=== PATIENT | female | born 1940 | race Caucasian/White ===

== ENCOUNTER 2018-02-20 12:10 | Emergency (ER) | payer MEDICARE, BC, SELFPAY ==
--- NOTE | 2018-02-20 12:10 | DT_ITS ---
This patient was seen during an EMR downtime February 14, 2018 - February 21, 2018. This patient may have a combination of paper and electronic documentation or all paper documentation. All documentation is viewable within the e-chart portion of [facility] for each patient visit.
--- NOTE | 2018-02-20 13:50 | CT_ITS ---
STUDY: CT ABDOMEN AND PELVIS WITH CONTRAST REASON FOR EXAM: Female, 77 years old. Low abdominal pain RADIATION DOSAGE (If Supplied By Facility): CTDIvol = ( 12.86 ) mGy, DLP = ( 700.04 ) mGycm TECHNIQUE: Transaxial images were obtained from the lower chest to the upper thighs with oral contrast. 100 ml of Isovue 300 contrast was administered. Sagittal and coronal images were reconstructed. Individualized dose optimization techniques were used for this CT. COMPARISON: None. FINDINGS: There is minimal dependent atelectasis in both lung bases. There is no pleural effusion. The heart is normal in size. The liver is unremarkable. The gallbladder and biliary system are unremarkable. The spleen is unremarkable. The pancreas is unremarkable. The adrenal glands are unremarkable. The right kidney is unremarkable. There is mild dilatation of the collecting system in the right kidney. There is atrophy of the upper and mid poles of the left kidney. There is no dilatation of the collecting system in the left kidney. The stomach is unremarkable. The small bowel is unremarkable. There are diverticula in the distal colon without adjacent stranding. There is non-visualization of the appendix. There are moderate vascular calcifications. The infrarenal aorta measures 3.5 cm in diameter. The inferior vena cava is unremarkable. The retroperitoneum is unremarkable. There is no free fluid in the abdomen. The wall of the bladder is thickened, and there is a small air focus in the anterior bladder wall. There is absence of the uterus likely from prior hysterectomy. There are no abnormal masses in the adnexal regions. There are small phleboliths scattered in the lower pelvis. The soft tissues of the abdominal wall are unremarkable. There are moderate degenerative changes in the visualized spine. There are marked degenerative disc changes at L4-5 and L5-S1. CT/Abdomen/Pelvis WITH Contrast IMPRESSION: The bladder wall is thickened and there is a small air focus along the anterior bladder wall, suggesting cystitis. There is mild hydronephrosis on the right side. There is diverticulosis of the distal colon. There are no acute bowel abnormalities. There is no ascites, free air or significant lymphadenopathy. There are moderate scattered vascular calcifications. The infrarenal aorta measures 3.5 cm in diameter. Electronically Signed: Tri Harris MD at 14:26 EDT Tel Direct: [phone], Service support ,
[2018-02-22 08:55] LABS: Glucose 94 mg/dL (74-106)
[2018-02-22 08:56] LABS: ALB/GLOB Ratio 0.9 RATIO (0.9-2.4); AST(SGOT) 27 U/L (15-37); Alanine Aminotransfer ALT/SGPT 18 U/L (13-56); Albumin, Serum 3.3 g/dL (3.2-5.0); Alkaline Phosphatase 115 U/L (45-117); BUN 18 mg/dL (7-18); BUN/Creat Ratio 20.2 RATIO (10-20); Calcium,Total 9.3 mg/dL (8.5-10.1); Creatinine, Serum 0.89 mg/dL (0.55-1.02); EST Glomerular Filtration Rate 66 mL/min (>60); Est Glom Filt Rate - Afr Amer 80 mL/min (>60); Globulin 3.6 g/dL (2.2-4.2); Lipase 172 U/L (73-393); Protein, Total 6.9 g/dL (6.4-8.2)
[2018-02-22 08:57] LABS: Anion Gap 4 (5-15); Chloride 110 mmol/L (98-107); Potassium 4.3 mmol/L (3.5-5.1); Sodium Level 144 mmol/L (136-145)
[2018-02-22 11:33] LABS: Absolute Lymphocyte Count 1.78 X10^3/ul (0.83-4.51); Absolute Neutrophil Count 4.7 X10^3/uL (2.0-7.7); Basophil# 0.03 X10^3/uL; Basophil% 0.4 % (0-1); Eosinophil# 0.28 X10^3/uL; Eosinophils% 3.9 % (0-5); Hematocrit 41.5 % (37-47); Hemoglobin 13.5 g/dl (12.0-15.0); Lymphocyte # 1.78 X10^3/ul (4.0); Lymphocyte % 24.5 % (19-41); Mean Corp Hgb Conc 32.5 g/gl (32-36); Mean Corpuscular Volume 92.2 fL (81-99); Monocyte% 6.9 % (0-10); Neutrophil # 4.67 X10^3/uL (2.7-7.7); Neutrophil % 64.2 % (47-70); POSITIVE COUNT NO; POSITIVE DIFFERENTIAL NO; POSITIVE MORPHOLOGY NO; Platelet Count 289 K/mm3 (150-450); RBC Distribution Width CV 12.5 % (11.6-14.6); RBC Distribution Width SD 41.5 fl (35.1-43.9); White Blood Count 7.3 K/mm3 (4.4-11.0)
[2018-02-22 12:12] LABS: Mucous, Urine 0 SEEN /hpf (<or=2+); Red Blood Cells-Urine 0 SEEN /hpf (0-5)
[2018-02-22 13:16] LABS: Color, Urine Yellow (Yellow); Glucose, Dipstick NEGATIVE (Normal); Ketone-Dipstick Negative (Negative); Protein-Dipstick Negative (Negative); Specific Gravity, Urine 1.005 (1.002-1.030); Urine Bilirubin Dipstick Negative (Negative); Urine Clarity Clear (Clear)
[2018-02-22 13:17] LABS: Bacteria RARE /hpf (None Seen); Leukocyte Esterase-Dipstick 500 /ul (Negative); Nitrite-Dipstick Negative (Negative); Occult Blood-Urine 10 /ul (Negative); Squamous Epithelial Cells - UA 0-5 SEEN /hpf (5-10); Urine Urobilinogen Normal (Normal); White Blood Cells 5-10 SEEN /hpf (0-5)
== END 2018-02-20 16:55 | disposition home or self-care (01) ==
LOC: ED 02-21 07:18
PROVIDERS: Emergency Provider Emergency Medicine; Family Provider Family Medicine; PCP Family Medicine
DX: R10.84 Generalized abdominal pain (principal); N39.0 Urinary tract infection, site not specified; R19.7 Diarrhea, unspecified; I25.2 Old myocardial infarction; N26.1 Atrophy of kidney (terminal); K57.30 Diverticulosis of large intestine without perforation or abscess without bleeding; I50.9 Heart failure, unspecified; J44.9 Chronic obstructive pulmonary disease, unspecified; Z86.79 Personal history of other diseases of the circulatory system; Z87.19 Personal history of other diseases of the digestive system; Z95.5 Presence of coronary angioplasty implant and graft; Z90.710 Acquired absence of both cervix and uterus; F17.200 Nicotine dependence, unspecified, uncomplicated
CPT/HCPCS: 36415; 74177; 80053; 81001; 83690; 85025; 87077; 87086; 87088; 87186; 96361; 96365; 96375; 99283; Q9967; A4216; J2405

== ENCOUNTER 2018-07-12 15:00 | Inpatient (IN) | payer OTHER, MEDICARE, SELFPAY ==
[2018-07-12 15:16] VITALS: BP 119/75; PULSE 88; RESP 18; TEMP 36.8; O2SAT 95; BMI 26.7
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
--- NOTE | 2018-07-12 17:45 | NURSING ---
Patient verbalized understanding to being a fall risk and asking for assistance. Call acevedo in place.
[2018-07-12 19:55] VITALS: BP 124/56; PULSE 91; RESP 19; TEMP 36.7; O2SAT 95
[2018-07-12] MEDS: BACITRACIN 15 GM Tube 1 APPLIC TOPICAL (21:13)
[2018-07-12] MEDS: Senna/Docusate Sodium 1 Tablet 2 TABLET PO (21:14)
[2018-07-12] MEDS: oxyCODONE 5 MG Tablet PO (21:15)
[2018-07-12] MEDS: clonazePAM 0.5 MG Tablet 1 MG PO (21:15)
[2018-07-12] MEDS: Pramipexole Di-HCl 0.125 MG Tablet PO (21:17)
[2018-07-12 22:15] VITALS: PULSE 117; RESP 18
[2018-07-12] MEDS: Albuterol 2.5 MG/3 ML VIAL.NEB. INHALATION (22:15)
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
[2018-07-13] MEDS: oxyCODONE 5 MG Tablet PO ×4 (01:36→19:37)
[2018-07-13] MEDS: Enoxaparin 40 MG/0.4 ML Syringe SC (05:17)
[2018-07-13] MEDS: Levothyroxine 50 MCG Tablet PO (05:17)
[2018-07-13] MEDS: clonazePAM 0.5 MG Tablet 1 MG PO (05:17)
[2018-07-13] MEDS: Baclofen 10 MG Tablet PO (05:17)
[2018-07-13] MEDS: BACITRACIN 15 GM Tube 1 APPLIC TOPICAL ×2 (05:18→22:43)
[2018-07-13 06:58] LABS: Hematocrit 30.7 % (37-47); Hemoglobin 9.7 g/dl (12.0-15.0); Mean Corp Hgb Conc 31.6 g/gl (32-36); Mean Corpuscular Hgb 30.5 pg (27.0-32.0); Mean Corpuscular Volume 96.5 fL (81-99); Platelet Count 200 K/mm3 (150-450); RBC Distribution Width CV 12.5 % (11.6-14.6); RBC Distribution Width SD 42.7 fl (35.1-43.9); Red Blood Count 3.18 M/mm3 (4.2-5.4); White Blood Count 7.4 K/mm3 (4.4-11.0)
[2018-07-13 07:12] LABS: Scan Indicated on CBC? Y/N NO
[2018-07-13 07:22] LABS: BUN 14 mg/dL (7-18); Creatinine, Serum 0.66 mg/dL (0.55-1.02); Estimated Creatinine Clearance 37.85 ml/min; Glucose 96 mg/dL (74-106)
[2018-07-13 07:23] LABS: ALB/GLOB Ratio 0.7 RATIO (0.9-2.4); AST(SGOT) 28 U/L (15-37); Alanine Aminotransfer ALT/SGPT 36 U/L (13-56); Albumin, Serum 2.5 g/dL (3.2-5.0); Alkaline Phosphatase 87 U/L (45-117); Anion Gap 6 (5-15); BUN/Creat Ratio 21.1 RATIO (10-20); Calcium,Total 8.4 mg/dL (8.5-10.1); Chloride 104 mmol/L (98-107); EST Glomerular Filtration Rate 92 mL/min (>60); Est Glom Filt Rate - Afr Amer 111 mL/min (>60); Globulin 3.4 g/dL (2.2-4.2); Phosphorus 3.2 mg/dL (2.5-4.9); Potassium 4.1 mmol/L (3.5-5.1); Protein, Total 5.9 g/dL (6.4-8.2); Sodium Level 141 mmol/L (136-145)
[2018-07-13 07:27] VITALS: BP 128/62; PULSE 94; RESP 19; TEMP 36.8; O2SAT 94
[2018-07-13] MEDS: Aspirin 81 MG TAB.CHEW PO (08:04)
[2018-07-13] MEDS: Clopidogrel Bisulfate 75 MG Tablet PO (08:04)
[2018-07-13] MEDS: Escitalopram Oxalate 10 MG Tablet 5 MG PO (08:05)
[2018-07-13] MEDS: Senna/Docusate Sodium 1 Tablet 2 TABLET PO (08:05)
[2018-07-13] MEDS: Lisinopril 5 MG Tablet PO (08:05)
[2018-07-13] MEDS: predniSONE 20 MG Tablet PO (08:05)
[2018-07-13] MEDS: Pantoprazole Sodium 40 MG Tablet PO (08:05)
[2018-07-13] MEDS: Pravastatin 40 MG Tablet PO (08:06)
[2018-07-13 08:07] VITALS: PULSE 79
[2018-07-13] MEDS: Metoprolol Tartrate 25 MG Tablet PO (08:07)
--- NOTE | 2018-07-13 10:11 | VDLE_ITS ---
Reason For Study: Pain RIGHT LEFT GSV is normal. GSV is normal. CFV is compressible, spontaneous, phasic, CFV is compressible, spontaneous, phasic, competent and demonstrates normal competent, and demonstrates normal augmentation. augmentation. FV is compressible, spontaneous, phasic, FV is compressible, spontaneous, phasic, competent and demonstrates normal competent and demonstrates normal augmentation. augmentation. POP V is compressible, spontaneous, phasic, POP V is compressible, spontaneous, phasic, competent and demonstrates normal competent and demonstrates normal augmentation. augmentation. T/P Trunk is compressible. T/P Trunk is compressible. PTV is compressible. PTV is compressible. RT PerV is compressible. Lt GastrocV, Lt SoleusV, and Lt PeroV are Procedure dilated and non compressible consistent with Exam performed portable in patient room. acute DVT. A preliminary report was called and/or faxed to [facility]. <> Interpretation Summary Acute deep vein thrombosis is noted in the left peroneal vein. Acute deep vein thrombosis is noted in the left gastrocnemius vein. Acute deep vein thrombosis is noted in the left soleus vein. The remainder of the left lower extremity deep venous system is patent and compressible. Deep veins of the right lower extremity are patent and compressible segmentally. There is no evidence of right lower extremity deep vein thrombosis. Valvular competence appears intact within the proximal deep venous systems bilaterally. The greater saphenous veins appear bilaterally patent and compressible segmentally. Ordering Physician: Amando Tobar Referring Physician: Boy Miller Performed By: Dana Thomas RDCS, RVT
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
--- NOTE | 2018-07-13 10:22 | PCM.RU.PYE ---
Admission Information Status Changes from Prescreening?: No changes Identified Actual Problem List:: Pain, ALteration in Cmfrt, Alteration in Sleep, Mobility Impaired, Self Care Deficit, BP, Hypertension, Alteration/ Air Exchange, Ineffect.D/C Plan r/t Psy Potential Problem List:: DVT, Bleeding, Infection, UTI, Aspiration, Falls, Skin Integrity, Depression Risk of Complications DVT: LMWH, OSWALDO Hose, Sequential Compression Device Bleeding: Monitor Lab Values, Nursing to Teach Precautions for anti-coagulation therapy., Wound, if applicable, to be assessed every shift., Stroke patients assessed for lethargy or change in status. Infection: Clinical Staff to Monitor for S/S of infection:, S/S of infection include fever, redness, warmth, etc. Urinary Tract Infection: Monitor for frequency, burning, discomfort, or incontinence., Nursing will obtain urine sample for urinalysis and C&S when ordered. Aspiration: Clinical staff will monitor for coughing, drooling, congestion., Speech will evaluate swallowing and dsyphasia., Nursing will monitor patient swallowing during meals. Falls: Patient will be evaluated for Fall Precautions, Patient will be placed on Fall Precautions as indicated per protocol. Skin Breakdown: Nursing will assess skin daily using assessment tool., Nursing will place on Skin Breakdown Precautions as indicated. Pain: Clinical staff will assess patient's pain level per protocol., Medications will be given, if needed, and the pain level reassessed., Other methods: Massage, distraction, decrease stimulus, etc. used PRN. Plan of Care Patient requires physician specializing in physical medicine and rehab oversight to provide close medical supervision of rehab issues including: Pain Management, Sleep Problems, Bowel and Bladder, Medical and co-morbidity Management, DVT prophylaxis, Rehabilitation Leadership, Coordination of treatment team Patient needs Physical Therapy: For a minimum of 1 hour, At least 5 out of 7 days Patient needs Physical Therapy to improve:: Mobility, Mobility, Mobility, Strengthening, Transfers, Stretching, ROM, Endurance, Stairs, Gait, Balance Patient needs Occupational Therapy: For a minimum of 1 hour, At least 5 out of 7 days Patient needs Occupational Therapy to improve ADL's incl.: Eating, Grooming, Bathing, Dressing, Toileting, Toilet transfers, Community Reintegration, Higher functioning activities, Household tasks, Adaptive Equipment, Splinting, Other activities as determined Patient requires 24/ Rehabilitation Nursing for: Pain Issues, Identifying and preventing risk factors, Monitoring and reporting current medical conditions, Assisting with ambulation, transfer, and all ADL's, Teaching patients about disease process and medications, Family teaching, Providing safe environment, Bowel and Bladder Issues, Skin integrity, Medication Management Patient needs Direct Chill Caster/ Case Management for: Discharge Planning, Arranging Home Equipment or Services, Family Interventions Patient needs Dietary and Nutrition Services for: Adequate Nutrition, Nutritional Supplements, Nutritional Education Goals Patient will remain: free from falls, or injury at time of discharge. Patient will perform bed mobility at: MOD I level of assist. Patient will complete transfers from bed to chair at: MOD I level of assist. Patient will ambulate: 100 feet, with MOD I assist, with LRD Patient will complete upper body dressing at: MOD I level of assist. Patient will complete lower body dressing at: MOD I level of assist. Patient will complete toileting at: MOD I level of assist. Patient will perform bathing at: MOD I level of assist. Patient will complete grooming at: MOD I level of assist. Patient will complete home management skills at: MOD I level of assist. Patient will achieve: 12 stairs, at MOD I assist Patient will have pain level of: of 3 or less Patient's skin will: remain intact, free from infection. Patient will receive: adequate nutrition. Discharge Planning Pt Prognosis for Sig. Practical Improv. w/in Reasonable Time: Good Anticipated D/C Destination: Home with Outpt Therapy Was Preadmission Assessment Accurate?: Yes
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
[2018-07-13] MEDS: Rivaroxaban 15 MG Tablet PO (17:12)
[2018-07-13 20:15] VITALS: O2SAT 93
[2018-07-13 20:35] VITALS: BP 140/73; PULSE 93; RESP 20; TEMP 37.1; O2SAT 92
[2018-07-13] MEDS: Nystatin Powder 15gm Bottle 1 APPLIC TOPICAL (22:42)
[2018-07-13] MEDS: Pramipexole Di-HCl 0.125 MG Tablet PO (22:43)
[2018-07-14] MEDS: oxyCODONE 5 MG Tablet PO ×4 (00:42→17:09)
[2018-07-14] MEDS: Nystatin Powder 15gm Bottle 1 APPLIC TOPICAL ×2 (05:48→21:28)
[2018-07-14] MEDS: BACITRACIN 15 GM Tube 1 APPLIC TOPICAL ×2 (05:48→21:27)
[2018-07-14] MEDS: Levothyroxine 50 MCG Tablet PO (06:40)
[2018-07-14] MEDS: Baclofen 10 MG Tablet PO ×2 (06:40→18:12)
[2018-07-14 07:20] VITALS: BP 142/73; PULSE 95; RESP 20; TEMP 36.9; O2SAT 92
[2018-07-14 08:13] VITALS: PULSE 95
[2018-07-14] MEDS: Aspirin 81 MG TAB.CHEW PO (08:13)
[2018-07-14] MEDS: predniSONE 20 MG Tablet PO (08:13)
[2018-07-14] MEDS: Lisinopril 5 MG Tablet PO (08:13)
[2018-07-14] MEDS: Escitalopram Oxalate 10 MG Tablet 5 MG PO (08:13)
[2018-07-14] MEDS: Pravastatin 40 MG Tablet PO (08:13)
[2018-07-14] MEDS: Pantoprazole Sodium 40 MG Tablet PO (08:13)
[2018-07-14] MEDS: Metoprolol Tartrate 25 MG Tablet PO (08:13)
[2018-07-14] MEDS: Rivaroxaban 15 MG Tablet PO ×2 (08:13→17:09)
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
--- NOTE | 2018-07-14 11:33 | NURSING ---
REQUEST FAXED TO [facility] FOR CT OF CHEST DISK TO BE SENT.
--- NOTE | 2018-07-14 15:30 | NURSING ---
REQUEST FAXED TO [facility] FOR CT CHEST DISC.
[2018-07-14 18:40] VITALS: PULSE 84; RESP 18
[2018-07-14] MEDS: Albuterol 2.5 MG/3 ML VIAL.NEB. INHALATION (18:40)
[2018-07-14 21:23] VITALS: BP 140/68; PULSE 86; RESP 18; TEMP 37; O2SAT 92
[2018-07-14] MEDS: Pramipexole Di-HCl 0.125 MG Tablet PO (21:27)
[2018-07-14] MEDS: Senna/Docusate Sodium 1 Tablet 2 TABLET PO (21:29)
[2018-07-14] MEDS: clonazePAM 0.5 MG Tablet 1 MG PO (21:35)
[2018-07-15] MEDS: oxyCODONE 5 MG Tablet PO ×4 (00:13→18:35)
[2018-07-15] MEDS: Levothyroxine 50 MCG Tablet PO (06:07)
[2018-07-15] MEDS: BACITRACIN 15 GM Tube 1 APPLIC TOPICAL ×2 (06:07→20:20)
[2018-07-15] MEDS: Nystatin Powder 15gm Bottle 1 APPLIC TOPICAL ×2 (06:08→20:21)
[2018-07-15 07:48] VITALS: BP 142/89; PULSE 98; RESP 18; TEMP 36.9; O2SAT 93
[2018-07-15 10:02] VITALS: BP 142/89; PULSE 98
[2018-07-15] MEDS: Senna/Docusate Sodium 1 Tablet 2 TABLET PO (10:02)
[2018-07-15] MEDS: Metoprolol Tartrate 25 MG Tablet PO (10:02)
[2018-07-15] MEDS: Pantoprazole Sodium 40 MG Tablet PO (10:02)
[2018-07-15] MEDS: Pravastatin 40 MG Tablet PO (10:02)
[2018-07-15] MEDS: Lisinopril 5 MG Tablet PO (10:02)
[2018-07-15] MEDS: Escitalopram Oxalate 10 MG Tablet 5 MG PO (10:03)
[2018-07-15] MEDS: Ondansetron ODT 4 MG Tablet PO (10:03)
[2018-07-15] MEDS: Rivaroxaban 15 MG Tablet PO ×2 (10:03→18:34)
[2018-07-15] MEDS: Aspirin 81 MG TAB.CHEW PO (10:03)
[2018-07-15] MEDS: predniSONE 20 MG Tablet PO (10:03)
--- NOTE | 2018-07-15 11:23 | PCM.PN.NEU ---
Patient Problems: Active and Suspected Problems Pulmonary emboli (Acute) Subjective: Patient seen and examined. Having some nausea and up set stomach this morning. - Physical Exam General: Alert, Oriented x3, Cooperative HEENT: Atraumatic, PERRLA, EOMI, Normocephalic Neck: Supple, No JVD, Negative Carotid Bruits Lungs: Clear to auscultation, Normal air movement Cardiovascular: Regular rate, No murmurs Abdomen: Bowel Sounds Present, Soft, Non Tender Extremities: No edema, Capillary Refill Less than 3 Seconds Skin: No rashes, No breakdown Musculoskeletal: No Tenderness to Palpation of Joints or Extremities Neurological: Cranial nerves II-XII grossly intact Psych/Mental Status: Normal Affect, Appropriate, Alert and oriented to time, place, person, mood and affect Vital Signs Temp Pulse Resp BP Pulse Ox 98.4 F 98 18 142/89 H 93 07/15/18 07:48 07/15/18 10:02 07/15/18 07:48 07/15/18 10:02 07/15/18 07:48 Oxygen Flow Rate (L/min) 2 Oxygen Delivery Method Room Air Weight: 66.5 kg Body Mass Index (BMI) 26.7 Intake and Output for Last 24 Hours 07/13/18 07/14/18 07/15/18 23:59 23:59 23:59 Intake Total 740 / 740 120 / 120 240 / 240 Output Total 650 / 650 Balance 90 / 90 120 / 120 240 / 240 Active Medications Albuterol Sulfate (Ventolin Aerosols) 2.5 mg INHALATION BID.RT [facility] Last Admin: 07/15/18 08:00 Dose: Not Given Aspirin (Aspirin, Baby) 81 mg PO DAILY@0800 [facility] Last Admin: 07/15/18 10:03 Dose: 81 mg Bacitracin (Bacitracin Ointment) 1 applic TOPICAL BID@0600,2200 [facility]; Protocol Last Admin: 07/15/18 06:07 Dose: 1 applicatio Baclofen (Lioresal) 10 mg PO TID PRN PRN PRN Reason: PAIN Last Admin: 07/14/18 18:12 Dose: 10 mg Bisacodyl (Dulcolax) 10 mg RECTAL .PRN X 1 PRN PRN Reason: Constipation Clonazepam (Klonopin) 1 mg PO TID PRN PRN PRN Reason: ANXIETY Last Admin: 07/14/18 21:35 Dose: 1 mg Escitalopram Oxalate (Lexapro) 5 mg PO DAILY [facility] Last Admin: 07/15/18 10:03 Dose: 5 mg Levothyroxine Sodium (Synthroid) 50 mcg PO DAILY@0600 [facility] Last Admin: 07/15/18 06:07 Dose: 50 mcg Lisinopril (Zestril) 5 mg PO DAILY [facility] Last Admin: 07/15/18 10:02 Dose: 5 mg Magnesium Hydroxide (Milk Of Magnesia) 30 ml PO .PRN X 1 PRN PRN Reason: Constipation Metoprolol Tartrate (Lopressor (Beta Bladimir)) 25 mg PO DAILY [facility] Last Admin: 07/15/18 10:02 Dose: 25 mg Nystatin (Mycostatin Powder) 1 applic TOPICAL BID@0600,2200 [facility]; Protocol Last Admin: 07/15/18 06:08 Dose: 1 applicatio Ondansetron HCl (Zofran Odt) 4 mg PO Q6H PRN PRN Reason: NAUSEA Last Admin: 07/15/18 10:03 Dose: 4 mg Oxycodone HCl (Oxyir) 5 mg PO Q6 [facility] Last Admin: 07/15/18 06:12 Dose: 5 mg Pantoprazole Sodium (Protonix) 40 mg PO DAILY [facility] Last Admin: 07/15/18 10:02 Dose: 40 mg Pramipexole Dihydrochloride (Mirapex) 0.125 mg PO HS [facility] Last Admin: 07/14/18 21:27 Dose: 0.1248 mg Pravastatin Sodium (Pravachol) 40 mg PO DAILY [facility] Last Admin: 07/15/18 10:02 Dose: 40 mg Prednisone () 20 mg PO DAILY@0800 [facility] Last Admin: 07/15/18 10:03 Dose: 20 mg [facility]) [facility] Stop: 08/03/18 17:01 Last Admin: 07/15/18 10:03 Dose: 15 mg Senna/Docusate Sodium (Senokot-S, Alba-Colace) 2 tablet PO BID [facility] Last Admin: 07/15/18 10:02 Dose: 2 tablet Sodium Chloride () 5 - 30 ml IV UD PRN PRN Reason: SALINE FLUSH Medical Necessity - Tobacco Use Smoking Status: Current every day smoker Tobacco Use: Cigarettes Assessment/Plan All Active Problems Pulmonary emboli (Acute) Rheumatoid arteritis (Acute) Debility 2/2 fracture left wrist and hand. Complicated by Chronic pain, muscle spasms, and Chronic pulmonary embolism. Goal of rehab is voodoo of functional independence. Plan: - Physical therapy for gait and balance - Occupational Therapy for ADLs - Speech therapy - As needed analgesics = Start low dose Fentanyl patch - Bowel protocol - DVT prophylaxis: SCDs, ASA, Lovenox change to Xarelto 15mg, d/c Lovenox and ASA - Hypertension: Stable with good control, continue home dose of Zestril - Hypothyroidism => continue home dose of Synthroid - Anxiety: continue home dose Klonopin - Chronic Pulmonary embolism = Continue home dose of Plavix - Muscle spasms = continue Baclofen - GERD continue Protonix - Hx of RA = continue home dose of Prednisone - Hx of RLS = continue home dose of Mirapex - Acute DVT/Pulmonary Embolism => start on Xarelto 15mg with meals x 21days, then 20mg Daily x 6 months - Nausea and upset stomach=> start Zofran 4mg Q6 PRN
--- NOTE | 2018-07-15 11:35 | PN.NEURO_ITS ---
Patient Problems: Active and Suspected Problems Pulmonary emboli (Acute) Subjective: Patient seen and examined. Having some nausea and up set stomach this morning. - Physical Exam General: Alert, Oriented x3, Cooperative HEENT: Atraumatic, PERRLA, EOMI, Normocephalic Neck: Supple, No JVD, Negative Carotid Bruits Lungs: Clear to auscultation, Normal air movement Cardiovascular: Regular rate, No murmurs Abdomen: Bowel Sounds Present, Soft, Non Tender Extremities: No edema, Capillary Refill Less than 3 Seconds Skin: No rashes, No breakdown Musculoskeletal: No Tenderness to Palpation of Joints or Extremities Neurological: Cranial nerves II-XII grossly intact Psych/Mental Status: Normal Affect, Appropriate, Alert and oriented to time, place, person, mood and affect Vital Signs Temp Pulse Resp BP Pulse Ox 98.4 F 98 18 142/89 H 93 07/15/18 07:48 07/15/18 10:02 07/15/18 07:48 07/15/18 10:02 07/15/18 07:48 Oxygen Flow Rate (L/min) 2 Oxygen Delivery Method Room Air Weight: 66.5 kg Body Mass Index (BMI) 26.7 Intake and Output for Last 24 Hours 07/13/18 07/14/18 07/15/18 23:59 23:59 23:59 Intake Total 740 / 740 120 / 120 240 / 240 Output Total 650 / 650 Balance 90 / 90 120 / 120 240 / 240 Active Medications Albuterol Sulfate (Ventolin Aerosols) 2.5 mg INHALATION BID.RT [facility] Last Admin: 07/15/18 08:00 Dose: Not Given Aspirin (Aspirin, Baby) 81 mg PO DAILY@0800 [facility] Last Admin: 07/15/18 10:03 Dose: 81 mg Bacitracin (Bacitracin Ointment) 1 applic TOPICAL BID@0600,2200 [facility]; Protocol Last Admin: 07/15/18 06:07 Dose: 1 applicatio Baclofen (Lioresal) 10 mg PO TID PRN PRN PRN Reason: PAIN Last Admin: 07/14/18 18:12 Dose: 10 mg Bisacodyl (Dulcolax) 10 mg RECTAL .PRN X 1 PRN PRN Reason: Constipation Clonazepam (Klonopin) 1 mg PO TID PRN PRN PRN Reason: ANXIETY Last Admin: 07/14/18 21:35 Dose: 1 mg Escitalopram Oxalate (Lexapro) 5 mg PO DAILY [facility] Last Admin: 07/15/18 10:03 Dose: 5 mg Levothyroxine Sodium (Synthroid) 50 mcg PO DAILY@0600 [facility] Last Admin: 07/15/18 06:07 Dose: 50 mcg Lisinopril (Zestril) 5 mg PO DAILY [facility] Last Admin: 07/15/18 10:02 Dose: 5 mg Magnesium Hydroxide (Milk Of Magnesia) 30 ml PO .PRN X 1 PRN PRN Reason: Constipation Metoprolol Tartrate (Lopressor (Beta Bladimir)) 25 mg PO DAILY [facility] Last Admin: 07/15/18 10:02 Dose: 25 mg Nystatin (Mycostatin Powder) 1 applic TOPICAL BID@0600,2200 [facility]; Protocol Last Admin: 07/15/18 06:08 Dose: 1 applicatio Ondansetron HCl (Zofran Odt) 4 mg PO Q6H PRN PRN Reason: NAUSEA Last Admin: 07/15/18 10:03 Dose: 4 mg Oxycodone HCl (Oxyir) 5 mg PO Q6 [facility] Last Admin: 07/15/18 06:12 Dose: 5 mg Pantoprazole Sodium (Protonix) 40 mg PO DAILY [facility] Last Admin: 07/15/18 10:02 Dose: 40 mg Pramipexole Dihydrochloride (Mirapex) 0.125 mg PO HS [facility] Last Admin: 07/14/18 21:27 Dose: 0.1248 mg Pravastatin Sodium (Pravachol) 40 mg PO DAILY [facility] Last Admin: 07/15/18 10:02 Dose: 40 mg Prednisone () 20 mg PO DAILY@0800 [facility] Last Admin: 07/15/18 10:03 Dose: 20 mg [facility]) [facility] Stop: 08/03/18 17:01 Last Admin: 07/15/18 10:03 Dose: 15 mg Senna/Docusate Sodium (Senokot-S, Alba-Colace) 2 tablet PO BID [facility] Last Admin: 07/15/18 10:02 Dose: 2 tablet Sodium Chloride () 5 - 30 ml IV UD PRN PRN Reason: SALINE FLUSH Medical Necessity - Tobacco Use Smoking Status: Current every day smoker Tobacco Use: Cigarettes Assessment/Plan All Active Problems Pulmonary emboli (Acute) Rheumatoid arteritis (Acute) Debility 2/2 fracture left wrist and hand. Complicated by Chronic pain, muscle spasms, and Chronic pulmonary embolism. Goal of rehab is sabianist of function al independence. Plan: - Physical therapy for gait and balance - Occupational Therapy for ADLs - Speech therapy - As needed analgesics = Start low dose Fentanyl patch - Bowel protocol - DVT prophylaxis: SCDs, ASA, Lovenox change to Xarelto 15mg, d/c Lovenox and ASA - Hypertension: Stable with good control, continue home dose of Zestril - Hypothyroidism => continue home dose of Synthroid - Anxiety: continue home dose Klonopin - Chronic Pulmonary embolism = Continue home dose of Plavix - Muscle spasms = continue Baclofen - GERD continue Protonix - Hx of RA = continue home dose of Prednisone - Hx of RLS = continue home dose of Mirapex - Acute DVT/Pulmonary Embolism => start on Xarelto 15mg with meals x 21days, then 20mg Daily x 6 months - Nausea and upset stomach=> start Zofran 4mg Q6 PRN
[2018-07-15 11:42] VITALS: O2SAT 98
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
[2018-07-15 20:17] VITALS: BP 131/80; PULSE 98; RESP 18; TEMP 37.1; O2SAT 93
[2018-07-15] MEDS: Pramipexole Di-HCl 0.125 MG Tablet PO (20:19)
[2018-07-16] VITALS (7 sets, daily range): BP systolic 112–130; BP diastolic 56–67; PULSE 70–84; RESP 16–18; TEMP 36.9–37.2; O2SAT 94–96
[2018-07-16] MEDS: oxyCODONE 5 MG Tablet PO ×5 (01:04→22:36)
[2018-07-16] MEDS: Nystatin Powder 15gm Bottle 1 APPLIC TOPICAL ×2 (05:48→20:28)
[2018-07-16] MEDS: Levothyroxine 50 MCG Tablet PO (05:52)
[2018-07-16] MEDS: BACITRACIN 15 GM Tube 1 APPLIC TOPICAL ×2 (05:52→20:26)
[2018-07-16] MEDS: Ondansetron ODT 4 MG Tablet PO ×3 (05:56→22:04)
[2018-07-16 08:41] LABS: Absolute Lymphocyte Count 1.81 X10^3/ul (0.83-4.51); Absolute Neutrophil Count 4.6 X10^3/uL (2.0-7.7); Basophil# 0.04 X10^3/uL; Basophil% 0.5 % (0-1); Eosinophil# 0.36 X10^3/uL; Eosinophils% 4.6 % (0-5); Hematocrit 32.2 % (37-47); Hemoglobin 10.2 g/dl (12.0-15.0); Lymphocyte # 1.81 X10^3/ul (4.0); Lymphocyte % 23.2 % (19-41); Mean Corp Hgb Conc 31.7 g/gl (32-36); Mean Corpuscular Hgb 30.4 pg (27.0-32.0); Mean Corpuscular Volume 95.8 fL (81-99); Mean Platelet Vol. 9.8 fl (6.2-12.0); Monocyte# 0.96 X10^3/uL; Monocyte% 12.3 % (0-10); Neutrophil % 59.1 % (47-70); Platelet Count 283 K/mm3 (150-450); RBC Distribution Width CV 12.2 % (11.6-14.6); RBC Distribution Width SD 41.2 fl (35.1-43.9); Red Blood Count 3.36 M/mm3 (4.2-5.4); White Blood Count 7.8 K/mm3 (4.4-11.0)
[2018-07-16] MEDS: Rivaroxaban 15 MG Tablet PO ×2 (08:41→17:51)
[2018-07-16 08:43] LABS: POSITIVE COUNT NO; POSITIVE DIFFERENTIAL NO; POSITIVE MORPHOLOGY NO
--- NOTE | 2018-07-16 08:46 | NURSING ---
patient stated she continues to have nausea, but a little bit better when this nurse awakened patient. patient took a couple of drinks of gingerale and resting in bed. per patient i think it was the baclofen that made me feel sick last night. will continue to monitor. patient denies any other symptoms at this time and no acute distress noted.
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
--- NOTE | 2018-07-16 11:35 | RAD_ITS ---
STUDY: X-RAY - ABDOMEN/PELVIS REASON FOR EXAM: Female, 77 years old. Nausea TECHNIQUE: Two AP supine views of the abdomen and pelvis. COMPARISON: None. FINDINGS: Normal visualized lung bases. There is an unremarkable bowel gas pattern. There is no demonstrated free abdominal air. The visualized liver, spleen and kidneys are grossly normal in size and morphology. Normal soft tissue structures. There are diffuse degenerative changes of the visualized lumbar spine. RAD/Abdomen Single View (Portable) IMPRESSION: No acute findings Electronically Signed: Wu Medina DO at 12:20 EDT Tel , Service support ,
--- NOTE | 2018-07-16 12:12 | NURSING ---
Dr. Wolfe seen patient ordered KUB and done. patient sitting up chair eating some saltine crackers and gingerale. son in room. patient will be able to take some more of her routine medications at this time.
[2018-07-16] MEDS: Metoprolol Tartrate 25 MG Tablet PO (12:33)
[2018-07-16] MEDS: Lisinopril 5 MG Tablet PO (12:35)
[2018-07-16] MEDS: Pantoprazole Sodium 40 MG Tablet PO ×2 (12:36→20:24)
[2018-07-16] MEDS: Escitalopram Oxalate 10 MG Tablet 5 MG PO (13:15)
[2018-07-16] MEDS: Aspirin 81 MG TAB.CHEW PO (13:16)
[2018-07-16] MEDS: Pravastatin 40 MG Tablet PO (13:16)
[2018-07-16] MEDS: predniSONE 20 MG Tablet PO (13:16)
--- NOTE | 2018-07-16 15:55 | NURSING ---
patient sitting up in bed visiting with family. per patient decrease nausea.
[2018-07-16] MEDS: Albuterol 2.5 MG/3 ML VIAL.NEB. INHALATION (19:10)
[2018-07-16] MEDS: Pramipexole Di-HCl 0.125 MG Tablet PO (20:24)
[2018-07-16] MEDS: Senna/Docusate Sodium 1 Tablet 2 TABLET PO (20:25)
[2018-07-16] MEDS: clonazePAM 0.5 MG Tablet 1 MG PO (20:32)
--- NOTE | 2018-07-16 22:37 | NURSING ---
PT C/O LEFT SIDE PAIN THAT RADIATES INTO LUQ AND MID ABD. RATES 05/23. CALLED DR TAYLOR TO OBTAIN ORDER FOR PAIN MEDS. PT HAS SCHEDULED OXY Q6H AND NEXT DOSE NOT DUE TIL MIDNIGHT. OBTAINED ONE TIME ORDER TO GO AHEAD AND GIVE OXY MIDNIGHT DOSE NOW AND THEN HOLD MIDNIGHT DOSE.
[2018-07-17] MEDS: Levothyroxine 50 MCG Tablet PO (05:48)
[2018-07-17] MEDS: BACITRACIN 15 GM Tube 1 APPLIC TOPICAL ×2 (05:49→21:40)
[2018-07-17] MEDS: Nystatin Powder 15gm Bottle 1 APPLIC TOPICAL ×2 (05:49→21:41)
[2018-07-17] MEDS: oxyCODONE 5 MG Tablet PO ×3 (05:49→17:42)
[2018-07-17 07:10] VITALS: BP 102/66; PULSE 76; RESP 18; TEMP 36.8; O2SAT 94
[2018-07-17 07:20] VITALS: PULSE 89; RESP 18; O2SAT 94
[2018-07-17] MEDS: Albuterol 2.5 MG/3 ML VIAL.NEB. INHALATION ×2 (07:20→19:04)
[2018-07-17 07:57] VITALS: PULSE 89
[2018-07-17] MEDS: Senna/Docusate Sodium 1 Tablet 2 TABLET PO (07:57)
[2018-07-17] MEDS: Aspirin 81 MG TAB.CHEW PO (07:57)
[2018-07-17] MEDS: Metoprolol Tartrate 25 MG Tablet PO (07:57)
[2018-07-17] MEDS: Escitalopram Oxalate 10 MG Tablet 5 MG PO (07:57)
[2018-07-17] MEDS: predniSONE 20 MG Tablet PO (07:57)
[2018-07-17] MEDS: Rivaroxaban 15 MG Tablet PO ×2 (07:57→17:42)
[2018-07-17] MEDS: Pantoprazole Sodium 40 MG Tablet PO ×2 (07:57→21:39)
[2018-07-17] MEDS: Pravastatin 40 MG Tablet PO (07:57)
[2018-07-17] MEDS: Ondansetron ODT 4 MG Tablet PO (07:57)
[2018-07-17] MEDS: Lisinopril 5 MG Tablet PO (07:58)
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
[2018-07-17 19:05] VITALS: PULSE 80; RESP 18
[2018-07-17 19:51] VITALS: BP 124/58; PULSE 77; RESP 15; TEMP 36.8; O2SAT 92
[2018-07-17] MEDS: Pramipexole Di-HCl 0.125 MG Tablet PO (21:41)
[2018-07-17] MEDS: clonazePAM 0.5 MG Tablet 1 MG PO (21:47)
[2018-07-17 22:00] VITALS: O2SAT 94
[2018-07-18] MEDS: oxyCODONE 5 MG Tablet PO ×4 (00:15→17:28)
[2018-07-18] MEDS: Levothyroxine 50 MCG Tablet PO (06:44)
[2018-07-18] MEDS: BACITRACIN 15 GM Tube 1 APPLIC TOPICAL ×2 (06:45→22:17)
[2018-07-18] MEDS: Nystatin Powder 15gm Bottle 1 APPLIC TOPICAL ×2 (06:46→22:17)
[2018-07-18] MEDS: clonazePAM 0.5 MG Tablet 1 MG PO (06:48)
[2018-07-18 06:50] VITALS: PULSE 80; RESP 16; O2SAT 94
[2018-07-18] MEDS: Albuterol 2.5 MG/3 ML VIAL.NEB. INHALATION (06:50)
[2018-07-18 07:47] VITALS: BP 138/70; PULSE 79; RESP 18; TEMP 36.6; O2SAT 93
[2018-07-18 07:58] VITALS: PULSE 78
[2018-07-18] MEDS: Metoprolol Tartrate 25 MG Tablet PO (07:58)
[2018-07-18] MEDS: Pravastatin 40 MG Tablet PO (07:58)
[2018-07-18] MEDS: Aspirin 81 MG TAB.CHEW PO (07:58)
[2018-07-18] MEDS: Lisinopril 5 MG Tablet PO (07:58)
[2018-07-18] MEDS: Rivaroxaban 15 MG Tablet PO ×2 (07:58→17:28)
[2018-07-18] MEDS: predniSONE 20 MG Tablet PO (07:58)
[2018-07-18] MEDS: Pantoprazole Sodium 40 MG Tablet PO ×2 (07:58→22:15)
[2018-07-18] MEDS: Escitalopram Oxalate 10 MG Tablet 5 MG PO ×2 (07:59→12:08)
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
[2018-07-18 22:00] VITALS: BP 128/62; PULSE 76; RESP 17; TEMP 36.7; O2SAT 94
[2018-07-18] MEDS: Senna/Docusate Sodium 1 Tablet 2 TABLET PO (22:15)
[2018-07-18] MEDS: MELATONIN 3 MG TABLET PO (22:16)
[2018-07-18] MEDS: Pramipexole Di-HCl 0.125 MG Tablet PO (22:16)
[2018-07-18] MEDS: clonazePAM 0.5 MG Tablet 1.5 MG PO (22:17)
[2018-07-19] MEDS: oxyCODONE 5 MG Tablet PO ×4 (00:55→16:55)
[2018-07-19] MEDS: Nystatin Powder 15gm Bottle 1 APPLIC TOPICAL (05:28)
[2018-07-19] MEDS: BACITRACIN 15 GM Tube 1 APPLIC TOPICAL (05:28)
[2018-07-19] MEDS: Levothyroxine 50 MCG Tablet PO (05:29)
[2018-07-19 06:50] VITALS: O2SAT 94
[2018-07-19] MEDS: Escitalopram Oxalate 10 MG Tablet PO (07:51)
[2018-07-19] MEDS: Aspirin 81 MG TAB.CHEW PO (07:51)
[2018-07-19] MEDS: predniSONE 20 MG Tablet PO (07:51)
[2018-07-19 07:52] VITALS: PULSE 82
[2018-07-19] MEDS: Pantoprazole Sodium 40 MG Tablet PO ×2 (07:52→20:29)
[2018-07-19] MEDS: Lisinopril 5 MG Tablet PO (07:52)
[2018-07-19] MEDS: Metoprolol Tartrate 25 MG Tablet PO (07:52)
[2018-07-19] MEDS: Rivaroxaban 15 MG Tablet PO ×2 (07:52→16:55)
[2018-07-19] MEDS: Pravastatin 40 MG Tablet PO (07:52)
[2018-07-19] MEDS: Ondansetron ODT 4 MG Tablet PO (07:56)
[2018-07-19 08:05] VITALS: BP 126/71; PULSE 78; RESP 17; TEMP 36.8; O2SAT 94
--- NOTE | 2018-07-19 09:25 | PCM.PN.NEU ---
Subjective: Patient seen lying quietly in bed after Physical therapy session, pain has improved. She is tolerating therapy, still unable to take more than a few steps. Denies any shortness of breath or chest pains. On Xarelto for PE and DVT, tolerating medication. - Physical Exam General: Alert, Oriented x3, Cooperative HEENT: Atraumatic, PERRLA, EOMI, Normocephalic Neck: Supple, No JVD, Negative Carotid Bruits Lungs: Clear to auscultation, Normal air movement Cardiovascular: Regular rate, No murmurs Abdomen: Bowel Sounds Present, Soft, Non Tender Extremities: No edema, Capillary Refill Less than 3 Seconds Skin: No rashes, No breakdown Musculoskeletal: No Tenderness to Palpation of Joints or Extremities Neurological: Cranial nerves II-XII grossly intact Psych/Mental Status: Normal Affect, Appropriate, Alert and oriented to time, place, person, mood and affect Vital Signs Temp Pulse Resp BP Pulse Ox 98.3 F 78 17 126/71 H 94 07/19/18 08:05 07/19/18 08:05 07/19/18 08:05 07/19/18 08:05 07/19/18 08:05 Oxygen Flow Rate (L/min) 2 Oxygen Delivery Method Nasal Cannula Weight: 66.5 kg Body Mass Index (BMI) 26.7 Intake and Output for Last 24 Hours 07/17/18 07/18/18 07/19/18 23:59 23:59 23:59 Intake Total 240 / 240 Balance 240 / 240 Active Medications Albuterol Sulfate (Ventolin Aerosols) 2.5 mg INHALATION BID.RT [facility] Last Admin: 07/19/18 06:50 Dose: Not Given Aspirin (Aspirin, Baby) 81 mg PO DAILY@0800 [facility] Last Admin: 07/19/18 07:51 Dose: 81 mg Bacitracin (Bacitracin Ointment) 1 applic TOPICAL BID@0600,2200 [facility]; Protocol Last Admin: 07/19/18 05:28 Dose: 1 applicatio Baclofen (Lioresal) 10 mg PO TID PRN PRN PRN Reason: PAIN Last Admin: 07/14/18 18:12 Dose: 10 mg Bisacodyl (Dulcolax) 10 mg RECTAL .PRN X 1 PRN PRN Reason: Constipation Clonazepam (Klonopin) 1 mg PO TID PRN PRN PRN Reason: ANXIETY Last Admin: 07/18/18 06:48 Dose: 1 mg Clonazepam (Klonopin) 1.5 mg PO [facility] Last Admin: 07/18/18 22:17 Dose: 1.5 mg Escitalopram Oxalate (Lexapro) 20 mg PO DAILY [facility] Levothyroxine Sodium (Synthroid) 50 mcg PO DAILY@0600 [facility] Last Admin: 07/19/18 05:29 Dose: 50 mcg Lisinopril (Zestril) 5 mg PO DAILY [facility] Last Admin: 07/19/18 07:52 Dose: 5 mg Magnesium Hydroxide (Milk Of Magnesia) 30 ml PO .PRN X 1 PRN PRN Reason: Constipation Melatonin (Melatonin) 3 mg PO QHS [facility] Last Admin: 07/18/18 22:16 Dose: 3 mg Metoprolol Tartrate (Lopressor (Beta Bladimir)) 25 mg PO DAILY [facility] Last Admin: 07/19/18 07:52 Dose: 25 mg Nystatin (Mycostatin Powder) 1 applic TOPICAL BID@0600,2200 [facility]; Protocol Last Admin: 07/19/18 05:28 Dose: 1 applicatio Ondansetron HCl (Zofran Odt) 4 mg PO Q6H PRN PRN Reason: NAUSEA Last Admin: 07/19/18 07:56 Dose: 4 mg Oxycodone HCl (Oxyir) 5 mg PO Q6 [facility] Last Admin: 07/19/18 05:29 Dose: 5 mg Pantoprazole Sodium (Protonix) 40 mg PO BID [facility] Last Admin: 07/19/18 07:52 Dose: 40 mg Pramipexole Dihydrochloride (Mirapex) 0.125 mg PO [facility] Last Admin: 07/18/18 22:16 Dose: 0.125 mg Pravastatin Sodium (Pravachol) 40 mg PO DAILY [facility] Last Admin: 07/19/18 07:52 Dose: 40 mg Prednisone () 20 mg PO DAILY@0800 [facility] Last Admin: 07/19/18 07:51 Dose: 20 mg [facility]) [facility] Stop: 08/03/18 17:01 Last Admin: 07/19/18 07:52 Dose: 15 mg Senna/Docusate Sodium (Senokot-S, Alba-Colace) 2 tablet PO BID [facility] Last Admin: 07/19/18 07:54 Dose: Not Given Sodium Chloride () 5 - 30 ml IV UD PRN PRN Reason: SALINE FLUSH Medical Necessity - Tobacco Use Smoking Status: Current every day smoker Tobacco Use: Cigarettes Assessment/Plan All Active Problems Nausea (Acute) DVT (deep venous thrombosis) (Acute) Pulmonary emboli (Acute) Rheumatoid arteritis (Acute) Debility 2/2 fracture left wrist and hand. Complicated by Chronic pain, muscle spasms, and Chronic pulmonary embolism. Goal of rehab is hoahaoism of functional independence. Plan: - Physical therapy for gait and balance - Occupational Therapy for ADLs - Speech therapy - As needed analgesics = Start low dose Fentanyl patch - Bowel protocol - DVT prophylaxis: SCDs, ASA, Lovenox change to Xarelto 15mg, d/c Lovenox and ASA - Hypertension: Stable with good control, continue home dose of Zestril - Hypothyroidism => continue home dose of Synthroid - Anxiety: continue home dose Klonopin - Chronic Pulmonary embolism = Continue home dose of Plavix - Muscle spasms = continue Baclofen - GERD continue Protonix - Hx of RA = continue home dose of Prednisone - Hx of RLS = continue home dose of Mirapex - Acute DVT/Pulmonary Embolism => start on Xarelto 15mg with meals x 21days, then 20mg Daily x 6 months - Nausea and upset stomach=> start Zofran 4mg Q6 PRN - Sleep hygiene = increase her bedtime dose of Klonopin to 1.5mg and add on melatonin 3 mg - Depression - started on low dose of Lexapro increase to 10mg
[2018-07-19] MEDS: clonazePAM 0.5 MG Tablet 1 MG PO (14:46)
[2018-07-19 19:59] VITALS: BP 123/61; PULSE 76; RESP 16; TEMP 36.4; O2SAT 95
[2018-07-19] MEDS: Senna/Docusate Sodium 1 Tablet 2 TABLET PO (20:28)
[2018-07-19] MEDS: Pramipexole Di-HCl 0.125 MG Tablet PO (20:29)
[2018-07-19] MEDS: clonazePAM 0.5 MG Tablet 1.5 MG PO (20:29)
[2018-07-19] MEDS: MELATONIN 3 MG TABLET PO (20:29)
[2018-07-19 20:52] VITALS: O2SAT 95
[2018-07-19 22:00] VITALS: O2SAT 95
[2018-07-20] MEDS: oxyCODONE 5 MG Tablet PO ×5 (00:26→23:49)
[2018-07-20] MEDS: Levothyroxine 50 MCG Tablet PO (05:47)
[2018-07-20] MEDS: Nystatin Powder 15gm Bottle 1 APPLIC TOPICAL ×2 (05:57→21:50)
[2018-07-20] MEDS: BACITRACIN 15 GM Tube 1 APPLIC TOPICAL ×2 (05:57→21:51)
[2018-07-20 07:25] VITALS: O2SAT 93
[2018-07-20 08:02] VITALS: PULSE 77
[2018-07-20] MEDS: Escitalopram Oxalate 20 MG Tablet PO (08:02)
[2018-07-20] MEDS: Rivaroxaban 15 MG Tablet PO ×2 (08:02→17:16)
[2018-07-20] MEDS: Pravastatin 40 MG Tablet PO (08:02)
[2018-07-20] MEDS: Aspirin 81 MG TAB.CHEW PO (08:02)
[2018-07-20] MEDS: predniSONE 20 MG Tablet PO (08:02)
[2018-07-20] MEDS: Metoprolol Tartrate 25 MG Tablet PO (08:02)
[2018-07-20] MEDS: Pantoprazole Sodium 40 MG Tablet PO ×2 (08:03→21:49)
[2018-07-20] MEDS: Senna/Docusate Sodium 1 Tablet 2 TABLET PO (08:03)
[2018-07-20] MEDS: Lisinopril 5 MG Tablet PO (08:03)
[2018-07-20 09:05] VITALS: BP 144/67; PULSE 69; RESP 18; TEMP 36.5; O2SAT 93
[2018-07-20] MEDS: clonazePAM 0.5 MG Tablet 1 MG PO (10:03)
--- NOTE | 2018-07-20 11:50 | PCM.PN.NEU ---
Subjective: She is awake and alert. No new complaints. Pain is improved and tolerating therapies. She has not yet decided when she wants to go home. Willing to continue therapies for now. - Physical Exam General: Alert, Oriented x3, Cooperative, No apparent distress Neurological: Cranial nerves II-XII grossly intact Psych/Mental Status: Normal Affect Vital Signs Temp Pulse Resp BP Pulse Ox 36.5 C L 69 18 144/67 H 93 07/20/18 09:05 07/20/18 09:05 07/20/18 09:05 07/20/18 09:05 07/20/18 09:05 Oxygen Flow Rate (L/min) 2 Oxygen Delivery Method Nasal Cannula Weight: 64.8 kg Body Mass Index (BMI) 26.7 Intake and Output for Last 24 Hours 07/18/18 07/19/18 07/20/18 23:59 23:59 23:59 Intake Total 480 / 480 240 / 240 Balance 480 / 480 240 / 240 Current Home Med List Medication Instructions Recorded Confirmed Type Clopidogrel Bisulfate [Plavix] 75 mg PO DAILY 08/17/16 07/12/18 History Lisinopril [Zestril] 5 mg PO DAILY 08/17/16 07/12/18 History Metoprolol Tartrate [Lopressor 25 mg PO DAILY 08/17/16 07/12/18 History (Beta Bladimir)] Pravastatin [Pravachol] 40 mg PO DAILY 08/17/16 07/12/18 History Albuterol Aerosols [Ventolin 2.5 mg INHALATION BID 07/12/18 07/12/18 History Aerosols] Aspirin [Aspirin, Baby] 81 mg PO DAILY@0800 07/12/18 07/12/18 History Baclofen [Lioresal] 10 mg PO TID PRN PRN 07/12/18 07/12/18 History Clonazepam [Klonopin] 1 mg PO TID PRN PRN 07/12/18 07/12/18 History Docusate Sodium [Colace] 100 mg PO BID 07/12/18 07/12/18 History Levothyroxine [Synthroid] 50 mcg PO DAILY 07/12/18 07/12/18 History Omeprazole 40 mg PO DAILY 07/12/18 07/12/18 History Oxycodone [Oxyir] 5 mg PO Q4H PRN PRN 07/12/18 07/12/18 History Prednisone 20 mg PO DAILY 07/12/18 07/12/18 History Ropinirole HCl [Requip] 0.25 mg PO QHS 07/12/18 07/12/18 History proMETHazine tablet [Phenergan 25 mg PO Q6H PRN PRN 07/12/18 07/12/18 History tablet] Medical Necessity - Tobacco Use Smoking Status: Current every day smoker Tobacco Use: Cigarettes Assessment/Plan All Active Problems Nausea (Acute) DVT (deep venous thrombosis) (Acute) Pulmonary emboli (Acute) Rheumatoid arteritis (Acute) Debility 2/2 fracture left wrist and hand. Complicated by Chronic pain, muscle spasms, and Chronic pulmonary embolism. Goal of rehab is roman catholic of functional independence. Plan: - Physical therapy for gait and balance - Occupational Therapy for ADLs - Speech therapy - As needed analgesics = Start low dose Fentanyl patch - Bowel protocol - DVT prophylaxis: SCDs, ASA, Lovenox change to Xarelto 15mg, d/c Lovenox and ASA - Hypertension: Stable with good control, continue home dose of Zestril - Hypothyroidism => continue home dose of Synthroid - Anxiety: continue home dose Klonopin - Chronic Pulmonary embolism = Continue home dose of Plavix - Muscle spasms = continue Baclofen - GERD continue Protonix - Hx of RA = continue home dose of Prednisone - Hx of RLS = continue home dose of Mirapex - Acute DVT/Pulmonary Embolism => start on Xarelto 15mg with meals x 21days, then 20mg Daily x 6 months - Nausea and upset stomach=> start Zofran 4mg Q6 PRN - Sleep hygiene = increase her bedtime dose of Klonopin to 1.5mg and add on melatonin 3 mg - Depression - started on low dose of Lexapro increase to 10mg
[2018-07-20 19:35] VITALS: BP 133/66; PULSE 79; RESP 16; TEMP 37.2; O2SAT 92
[2018-07-20] MEDS: MELATONIN 3 MG TABLET PO (21:50)
[2018-07-20] MEDS: Pramipexole Di-HCl 0.125 MG Tablet PO (21:50)
[2018-07-20] MEDS: clonazePAM 0.5 MG Tablet 1.5 MG PO (21:51)
[2018-07-21] MEDS: Levothyroxine 50 MCG Tablet PO (05:35)
[2018-07-21] MEDS: oxyCODONE 5 MG Tablet PO ×3 (05:35→17:47)
[2018-07-21] MEDS: BACITRACIN 15 GM Tube 1 APPLIC TOPICAL ×2 (05:36→22:58)
[2018-07-21] MEDS: Nystatin Powder 15gm Bottle 1 APPLIC TOPICAL ×2 (05:36→22:57)
[2018-07-21 07:00] VITALS: BP 116/48; PULSE 75; RESP 20; TEMP 37; O2SAT 95
[2018-07-21 07:31] VITALS: O2SAT 94
[2018-07-21] MEDS: Pantoprazole Sodium 40 MG Tablet PO ×2 (10:20→22:56)
[2018-07-21] MEDS: Escitalopram Oxalate 20 MG Tablet PO (10:20)
[2018-07-21] MEDS: Pravastatin 40 MG Tablet PO (10:20)
[2018-07-21] MEDS: Rivaroxaban 15 MG Tablet PO ×2 (10:21→17:47)
[2018-07-21] MEDS: predniSONE 20 MG Tablet PO (10:21)
[2018-07-21] MEDS: Aspirin 81 MG TAB.CHEW PO (10:21)
[2018-07-21 10:24] VITALS: BP 121/83; PULSE 98
[2018-07-21] MEDS: Metoprolol Tartrate 25 MG Tablet PO (10:24)
[2018-07-21] MEDS: Lisinopril 5 MG Tablet PO (10:24)
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
--- NOTE | 2018-07-21 15:11 | CASEMGMT ---
Social Work Spoke with patient in room. Patient reporting to need a one arm drive wheelchair (Right side drive) and a platform wheeled walker with Left platform attachment. Patient reporting to have no preference of [employer] to be utilized. Telephone call to Romina Cabrera. This social welfare clerk making referral for wheelchair and walker mentioned above. [facility] fax[facility]. [facility]. Will continue to follow. SABINA Gamez, [employer]
[2018-07-21 20:50] VITALS: BP 113/53; PULSE 52; RESP 18; TEMP 36.7; O2SAT 91
[2018-07-21] MEDS: MELATONIN 3 MG TABLET PO (22:57)
[2018-07-21] MEDS: Pramipexole Di-HCl 0.125 MG Tablet PO (22:57)
[2018-07-21] MEDS: clonazePAM 0.5 MG Tablet 1.5 MG PO (22:57)
[2018-07-22] MEDS: oxyCODONE 5 MG Tablet PO ×4 (00:49→18:22)
[2018-07-22] MEDS: Levothyroxine 50 MCG Tablet PO (05:55)
[2018-07-22] MEDS: BACITRACIN 15 GM Tube 1 APPLIC TOPICAL ×2 (05:56→21:13)
[2018-07-22] MEDS: Nystatin Powder 15gm Bottle 1 APPLIC TOPICAL ×2 (05:56→21:13)
[2018-07-22 07:00] VITALS: BP 125/55; PULSE 62; RESP 20; TEMP 36.7; O2SAT 92
[2018-07-22 07:15] VITALS: PULSE 80; RESP 16
[2018-07-22] MEDS: Albuterol 2.5 MG/3 ML VIAL.NEB. INHALATION (07:15)
[2018-07-22] MEDS: Senna/Docusate Sodium 1 Tablet 2 TABLET PO (10:51)
[2018-07-22 10:52] VITALS: BP 125/55; PULSE 80
[2018-07-22] MEDS: Pantoprazole Sodium 40 MG Tablet PO ×2 (10:52→21:12)
[2018-07-22] MEDS: Escitalopram Oxalate 20 MG Tablet PO (10:52)
[2018-07-22] MEDS: Lisinopril 5 MG Tablet PO (10:52)
[2018-07-22] MEDS: Aspirin 81 MG TAB.CHEW PO (10:52)
[2018-07-22] MEDS: Metoprolol Tartrate 25 MG Tablet PO (10:52)
[2018-07-22] MEDS: Rivaroxaban 15 MG Tablet PO ×2 (10:52→18:21)
[2018-07-22] MEDS: Pravastatin 40 MG Tablet PO (10:52)
[2018-07-22] MEDS: predniSONE 20 MG Tablet PO (10:52)
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
[2018-07-22] MEDS: clonazePAM 0.5 MG Tablet 1 MG PO (13:04)
[2018-07-22 19:24] VITALS: BP 150/70; PULSE 82; RESP 18; TEMP 36.9; O2SAT 93
[2018-07-22] MEDS: clonazePAM 0.5 MG Tablet 1.5 MG PO (21:11)
[2018-07-22] MEDS: MELATONIN 3 MG TABLET PO (21:12)
[2018-07-22] MEDS: Pramipexole Di-HCl 0.125 MG Tablet PO (21:12)
[2018-07-23] MEDS: oxyCODONE 5 MG Tablet PO ×4 (01:12→16:59)
[2018-07-23] MEDS: Levothyroxine 50 MCG Tablet PO (05:26)
[2018-07-23] MEDS: BACITRACIN 15 GM Tube 1 APPLIC TOPICAL (05:27)
[2018-07-23] MEDS: Nystatin Powder 15gm Bottle 1 APPLIC TOPICAL ×2 (05:27→20:28)
[2018-07-23 06:36] VITALS: PULSE 70; RESP 20; O2SAT 64
[2018-07-23] MEDS: Albuterol 2.5 MG/3 ML VIAL.NEB. INHALATION (06:36)
[2018-07-23 07:46] VITALS: BP 113/66; PULSE 73; RESP 16; TEMP 36.5; O2SAT 93
[2018-07-23 08:39] VITALS: PULSE 73
[2018-07-23] MEDS: Metoprolol Tartrate 25 MG Tablet PO (08:39)
[2018-07-23] MEDS: Pravastatin 40 MG Tablet PO (08:39)
[2018-07-23] MEDS: Pantoprazole Sodium 40 MG Tablet PO ×2 (08:39→20:27)
[2018-07-23] MEDS: Escitalopram Oxalate 20 MG Tablet PO (08:39)
[2018-07-23] MEDS: predniSONE 20 MG Tablet PO (08:39)
[2018-07-23] MEDS: Rivaroxaban 15 MG Tablet PO ×2 (08:39→16:58)
[2018-07-23] MEDS: Aspirin 81 MG TAB.CHEW PO (08:39)
[2018-07-23] MEDS: Lisinopril 5 MG Tablet PO (08:40)
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
[2018-07-23] MEDS: clonazePAM 0.5 MG Tablet 1 MG PO (17:01)
[2018-07-23 20:12] VITALS: BP 105/60; PULSE 67; RESP 18; TEMP 36.6; O2SAT 94
[2018-07-23] MEDS: clonazePAM 0.5 MG Tablet 1.5 MG PO (20:26)
[2018-07-23] MEDS: Pramipexole Di-HCl 0.125 MG Tablet PO (20:27)
[2018-07-23] MEDS: Senna/Docusate Sodium 1 Tablet 2 TABLET PO (20:27)
[2018-07-23] MEDS: MELATONIN 3 MG TABLET PO (20:27)
[2018-07-24] MEDS: oxyCODONE 5 MG Tablet PO ×4 (00:24→17:01)
[2018-07-24] MEDS: Ondansetron ODT 4 MG Tablet PO (06:15)
[2018-07-24] MEDS: Levothyroxine 50 MCG Tablet PO (06:15)
[2018-07-24] MEDS: Nystatin Powder 15gm Bottle 1 APPLIC TOPICAL ×2 (06:15→20:32)
[2018-07-24 06:28] VITALS: O2SAT 94
[2018-07-24 06:56] VITALS: BP 147/68; PULSE 66; RESP 18; TEMP 36.6; O2SAT 93
[2018-07-24] MEDS: Aspirin 81 MG TAB.CHEW PO (08:03)
[2018-07-24] MEDS: Rivaroxaban 15 MG Tablet PO ×2 (08:03→17:01)
[2018-07-24] MEDS: Pantoprazole Sodium 40 MG Tablet PO ×2 (08:03→20:32)
[2018-07-24] MEDS: predniSONE 20 MG Tablet PO (08:03)
[2018-07-24] MEDS: Pravastatin 40 MG Tablet PO (08:03)
[2018-07-24] MEDS: Lisinopril 5 MG Tablet PO (08:03)
[2018-07-24] MEDS: Escitalopram Oxalate 20 MG Tablet PO (08:03)
[2018-07-24 08:04] VITALS: BP 147/68; PULSE 66
[2018-07-24] MEDS: Metoprolol Tartrate 25 MG Tablet PO (08:04)
--- NOTE | 2018-07-24 15:42 | NURSING ---
patient c/o of burning with urination and suprapubic tenderness. fluids encouraged and taken well, but continued to have symptoms, negative CVA tenderness. per patient she gets chronic UTIs and had to st[facility] cath self for 5 years. new order per dr. downs for ua c&s, which was obtained via [facility].c[facility] and sent to lab. urine yellow and clear.
[2018-07-24 15:56] LABS: Bacteria 0 SEEN /hpf (None Seen); Mucous, Urine 0 SEEN /hpf (<or=2+); Red Blood Cells-Urine 0 SEEN /hpf (0-5)
[2018-07-24 16:02] LABS: Color, Urine Yellow (Yellow); Glucose, Dipstick Normal (Normal); Ketone-Dipstick Negative (Negative); Leukocyte Esterase-Dipstick 500 /ul (Negative); Nitrite-Dipstick Negative (Negative); Occult Blood-Urine 10 /ul (Negative); Protein-Dipstick Negative (Negative); Specific Gravity, Urine 1.015 (1.002-1.030); Urine Bilirubin Dipstick Negative (Negative); Urine Clarity Clear (Clear); Urine Urobilinogen Normal (Normal)
[2018-07-24 16:28] LABS: White Blood Cells 10-25 SEEN /hpf (0-5)
[2018-07-24 16:36] LABS: Squamous Epithelial Cells - UA 0-5 SEEN /hpf (5-10)
[2018-07-24] MEDS: clonazePAM 0.5 MG Tablet 1 MG PO (18:18)
--- NOTE | 2018-07-24 18:19 | NURSING ---
urine cx pending, patient stated continues to have burning with urination. fluids encouraged and taken well this shift.
[2018-07-24 20:23] VITALS: BP 111/51; PULSE 72; RESP 18; TEMP 36.9; O2SAT 93
[2018-07-24] MEDS: Pramipexole Di-HCl 0.125 MG Tablet PO (20:30)
[2018-07-24] MEDS: MELATONIN 3 MG TABLET PO (20:30)
--- NOTE | 2018-07-24 20:44 | NURSING ---
C/O abdominal pain. Abd soft, nondistended. BS present, normoactive. States I think its my nerves. I've been thinking of my all afternoon and evening. States I really want to go home I know I'm getting depressed. Support given
[2018-07-25] MEDS: oxyCODONE 5 MG Tablet PO ×4 (00:59→17:43)
[2018-07-25] MEDS: Levothyroxine 50 MCG Tablet PO (06:29)
[2018-07-25] MEDS: Nystatin Powder 15gm Bottle 1 APPLIC TOPICAL (06:31)
[2018-07-25 08:00] VITALS: PULSE 76
[2018-07-25] MEDS: Aspirin 81 MG TAB.CHEW PO (08:00)
[2018-07-25] MEDS: Rivaroxaban 15 MG Tablet PO ×2 (08:00→17:43)
[2018-07-25] MEDS: Pantoprazole Sodium 40 MG Tablet PO ×2 (08:00→21:01)
[2018-07-25] MEDS: Metoprolol Tartrate 25 MG Tablet PO (08:00)
[2018-07-25] MEDS: predniSONE 20 MG Tablet PO (08:00)
[2018-07-25] MEDS: Pravastatin 40 MG Tablet PO (08:00)
[2018-07-25] MEDS: Escitalopram Oxalate 20 MG Tablet PO (08:00)
[2018-07-25] MEDS: Lisinopril 5 MG Tablet PO (08:00)
[2018-07-25 08:03] VITALS: BP 117/65; PULSE 68; RESP 18; TEMP 37.1; O2SAT 92
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
--- NOTE | 2018-07-25 10:33 | DCINST_ITS ---
- Discharge Diagnoses Current Active Problems: Current Active and Chronic Problems DVT (deep venous thrombosis) (Acute) Pulmonary emboli (Acute) You will use the following diet at home:: No restrictions Your food should be the consistency of: Regular Your liquids should be the consistency of: Regular/Thin Discharge Activity: Return to Normal Activity, May Not Drive, Use Walker Weight Bearing Status: Weight bearing as tolerated Lifting Restrictions: 10 lbs Call your doctor if your incision/area has: Increased Pain/ Swelling Allergies/Adverse Reactions: Allergies bupropion [From Wellbutrin] Allergy (Verified 09/18/17 18:39) Unknown carbidopa [From Sinemet] Allergy (Verified 09/18/17 18:39) Unknown celecoxib [From Celebrex] Allergy (Verified 09/18/17 18:39) Unknown codeine Allergy (Verified 09/18/17 18:39) Unknown levodopa [From Sinemet] Allergy (Verified 09/18/17 18:39) Unknown nitrofurantoin [From Macrobid] Allergy (Verified 09/18/17 18:39) Unknown phenytoin [From Dilantin] Allergy (Verified 09/18/17 18:39) Unknown prochlorperazine [From Compazine] Allergy (Verified 09/18/17 18:39) Unknown Sulfa (Sulfonamide Antibiotics) Allergy (Verified 09/18/17 18:39) Unknown sulfamethoxazole [From Bactrim] Allergy (Verified 09/18/17 18:39) Unknown trimethoprim [From Bactrim] Allergy (Verified 09/18/17 18:39) Unknown Medications to take at Discharge Clopidogrel Bisulfate [Plavix] 75 mg PO DAILY 08/17/16 Lisinopril [Zestril] 5 mg PO DAILY 08/17/16 Metoprolol Tartrate [Lopressor (beta karishma)] 25 mg PO DAILY 08/17/16 Pravastatin [Pravachol] 40 mg PO DAILY 08/17/16 Albuterol Aerosols [Ventolin Aerosols] 2.5 mg INHALATION BID 07/12/18 Aspirin [Aspirin, Baby] 81 mg PO DAILY@0800 07/12/18 Docusate Sodium [Colace] 100 mg PO BID 07/12/18 Levothyroxine [Synthroid] 50 mcg PO DAILY 07/12/18 Omeprazole 40 mg PO DAILY 07/12/18 Prednisone 20 mg PO DAILY 07/12/18 Ropinirole HCl [Requip] 0.25 mg PO QHS 07/12/18 proMETHazine tablet [Phenergan tablet] 25 mg PO Q6H PRN PRN 07/12/18 Acetaminophen [Tylenol Tablet] 650 mg PO Q6H PRN PRN tablet 07/25/18 Clonazepam [Klonopin] 1.5 mg PO HS #30 tab 07/25/18 Escitalopram Oxalate [Lexapro] 20 mg PO DAILY #30 tab 07/25/18 Melatonin 3 mg PO QHS tablet 07/25/18 Oxycodone [Oxyir] 5 mg PO Q6 14 Days tab 07/25/18 The following prescriptions were given: Clonazepam [Klonopin] 1.5 mg PO HS #30 tab Escitalopram Oxalate [Lexapro] 20 mg PO DAILY #30 tab Oxycodone [Oxyir] 5 mg PO Q6 14 Days tab Primary Care Physician: Boy Miller MD [Primary Care Provider] - Test Results: Test results from this visit will be discussed in further detail at your follow- up appointment, if applicable. Proposed Discharge Date: 07/27/18
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
[2018-07-25] MEDS: Phenazopyridine 95 MG Tablet PO ×2 (15:07→21:03)
--- NOTE | 2018-07-25 15:52 | CASEMGMT ---
Team meeting held today with pt and son in attendance. Pt has progressed with therapy. Last covered day 07/26 with d/c set for 07/27. Pt plans to return home with her son and granddgt. Both who are able to assist her with needed care. Therapy is recommending home health PT/OT/RECEIVABLE CLERK and pt is agreeable. Pt has a walker and a wheelchair. She does need a platform for her walker. Phone call to Romina at [facility] and informed of above needed DME. [facility] to bring platform to pt room to assure it fits correctly. SW to follow up for d/c planning. SABINA Quarles
[2018-07-25] MEDS: clonazePAM 0.5 MG Tablet 1.5 MG PO (21:02)
[2018-07-25] MEDS: Pramipexole Di-HCl 0.125 MG Tablet PO (21:03)
[2018-07-25] MEDS: MELATONIN 3 MG TABLET PO (21:03)
[2018-07-25 21:12] VITALS: BP 115/64; PULSE 70; RESP 18; TEMP 37.1; O2SAT 93
[2018-07-26] MEDS: oxyCODONE 5 MG Tablet PO ×4 (00:16→16:53)
[2018-07-26] MEDS: Nystatin Powder 15gm Bottle 1 APPLIC TOPICAL ×2 (05:23→22:19)
[2018-07-26] MEDS: Phenazopyridine 95 MG Tablet PO ×3 (05:23→22:18)
[2018-07-26] MEDS: Levothyroxine 50 MCG Tablet PO (05:25)
[2018-07-26 06:59] VITALS: BP 121/49; PULSE 67; RESP 18; TEMP 36.6; O2SAT 92
[2018-07-26] MEDS: Pravastatin 40 MG Tablet PO (07:48)
[2018-07-26] MEDS: Lisinopril 5 MG Tablet PO (07:49)
[2018-07-26] MEDS: Senna/Docusate Sodium 1 Tablet 2 TABLET PO (07:49)
[2018-07-26 07:50] VITALS: PULSE 77
[2018-07-26] MEDS: Metoprolol Tartrate 25 MG Tablet PO (07:50)
[2018-07-26] MEDS: Rivaroxaban 15 MG Tablet PO ×2 (07:50→16:52)
[2018-07-26] MEDS: Aspirin 81 MG TAB.CHEW PO (07:50)
[2018-07-26] MEDS: Escitalopram Oxalate 20 MG Tablet PO (07:50)
[2018-07-26] MEDS: predniSONE 20 MG Tablet PO (07:50)
[2018-07-26] MEDS: Acetaminophen 325 MG Tablet 650 MG PO ×2 (07:51→19:06)
[2018-07-26] MEDS: Pantoprazole Sodium 40 MG Tablet PO ×2 (07:51→22:20)
--- NOTE | 2018-07-26 16:35 | CASEMGMT ---
Social Work Spoke with patient in room in regards to home health care referral. Patient agreeable to have physical and occupational therapy as well as a home health aide set up within the home for skilled services. Patient requesting for home health care to be set up through [facility] ([facility]). This social service manager noting that platform attachment for walker has already been delivered to patient room. Patient family to provide transportation home for patient at time of discharge. Support given. [facility] This social service manager making referral for physical and occupational therapy as well as a home health aide. Orders faxed. Proposed discharge date: 07/27/18 PLAN: Discharge to home with family and home health care. SABINA Gamez, [employer] GENERAL SALES MANAGER
[2018-07-26 22:00] VITALS: BP 114/58; PULSE 67; RESP 16; TEMP 37.1; O2SAT 93
[2018-07-26] MEDS: clonazePAM 0.5 MG Tablet 1.5 MG PO (22:17)
[2018-07-26] MEDS: Pramipexole Di-HCl 0.125 MG Tablet PO (22:18)
[2018-07-26] MEDS: MELATONIN 3 MG TABLET PO (22:18)
[2018-07-27] MEDS: oxyCODONE 5 MG Tablet PO ×2 (00:12→05:11)
[2018-07-27] MEDS: Levothyroxine 50 MCG Tablet PO (05:07)
[2018-07-27] MEDS: Phenazopyridine 95 MG Tablet PO (05:08)
[2018-07-27] MEDS: Nystatin Powder 15gm Bottle 1 APPLIC TOPICAL (05:08)
[2018-07-27] MEDS: Aspirin 81 MG TAB.CHEW PO (08:13)
[2018-07-27] MEDS: Pantoprazole Sodium 40 MG Tablet PO (08:13)
[2018-07-27] MEDS: Lisinopril 5 MG Tablet PO (08:13)
[2018-07-27 08:14] VITALS: PULSE 78
[2018-07-27] MEDS: Pravastatin 40 MG Tablet PO (08:14)
[2018-07-27] MEDS: Metoprolol Tartrate 25 MG Tablet PO (08:14)
[2018-07-27] MEDS: Rivaroxaban 15 MG Tablet PO (08:14)
[2018-07-27] MEDS: Escitalopram Oxalate 20 MG Tablet PO (08:14)
[2018-07-27] MEDS: predniSONE 20 MG Tablet PO (08:14)
[2018-07-27] MEDS: Acetaminophen 325 MG Tablet 650 MG PO (08:19)
[2018-07-27 08:26] VITALS: BP 121/67; PULSE 81; RESP 18; TEMP 36.6; O2SAT 95
[2018-07-27 11:30] VITALS: BP 121/67; PULSE 81; RESP 18; TEMP 36.7; O2SAT 95
--- NOTE | 2018-07-27 11:30 | NURSING ---
Discharge to home and patient and son aware of discharge instructions and verbalized understanding.
== END 2018-07-27 11:30 | disposition home health service (06) | DRG 560 ==
PROVIDERS: Nurse Practitioner Acute Care; Admitting Provider Psychiatry & Neurology Neurology; Family Provider Family Medicine; PCP Family Medicine; Referring Provider Psychiatry & Neurology Neurology; Visit Provider Internal Medicine
DX: S52.502D Unspecified fracture of the lower end of left radius, subsequent encounter for closed fracture with routine healing (principal); I27.82 Chronic pulmonary embolism; I82.492 Acute embolism and thrombosis of other specified deep vein of left lower extremity; S52.202D Unspecified fracture of shaft of left ulna, subsequent encounter for closed fracture with routine healing; V49.88XD Car occupant (driver) (passenger) injured in other specified transport accidents, subsequent encounter; I10 Essential (primary) hypertension; E03.9 Hypothyroidism, unspecified; K21.9 Gastro-esophageal reflux disease without esophagitis; M06.9 Rheumatoid arthritis, unspecified; I25.10 Atherosclerotic heart disease of native coronary artery without angina pectoris; F41.9 Anxiety disorder, unspecified; F32.9 Major depressive disorder, single episode, unspecified; G25.81 Restless legs syndrome; Z86.718 Personal history of other venous thrombosis and embolism; I25.2 Old myocardial infarction; F17.210 Nicotine dependence, cigarettes, uncomplicated; E78.5 Hyperlipidemia, unspecified; S93.402D Sprain of unspecified ligament of left ankle, subsequent encounter
CPT/HCPCS: 36415; 71275; 73610; 74018; 80053; 81001; 83735; 84100; 85025; 85027; 87077; 87086; 87088; 87186; 93970; 94640; 97110; 97116; 97162; 97166; 97530; 97535; 97802; 99406; Q9967; A4216

== ENCOUNTER 2018-08-16 12:28 | Outpatient (RCR) | payer MEDICARE, SELFPAY ==
[2018-08-16 12:52] LABS: Mucous, Urine 0 SEEN /hpf (<or=2+); Red Blood Cells-Urine 0 SEEN /hpf (0-5); Squamous Epithelial Cells - UA 0 SEEN /hpf (5-10)
[2018-08-16 12:56] LABS: Color, Urine Yellow (Yellow); Glucose, Dipstick Normal (Normal); Ketone-Dipstick Negative (Negative); Leukocyte Esterase-Dipstick 500 /ul (Negative); Nitrite-Dipstick Positive (Negative); Occult Blood-Urine 25 /ul (Negative); Protein-Dipstick 15 mg/dl (Negative); Urine Bilirubin Dipstick Negative (Negative); Urine Clarity Sl. Cloudy (Clear); Urine Urobilinogen Normal (Normal)
[2018-08-16 13:05] LABS: White Blood Cells >100 SEEN /hpf (0-5)
[2018-08-16 13:06] LABS: Bacteria 2+ /hpf (None Seen)
== END 2018-08-16 13:28 | disposition home or self-care (01) ==
LOC: HHLAB 12:28
PROVIDERS: Family Provider Family Medicine; PCP Family Medicine; Referring Provider Family Medicine; Visit Provider Family Medicine
DX: S62.002D Unspecified fracture of navicular [scaphoid] bone of left wrist, subsequent encounter for fracture with routine healing (principal); S93.402D Sprain of unspecified ligament of left ankle, subsequent encounter; S36.892D Contusion of other intra-abdominal organs, subsequent encounter; N39.0 Urinary tract infection, site not specified
CPT/HCPCS: 81001; 87086; 87088; 87186

== ENCOUNTER 2018-10-18 17:12 | Emergency (ER) | payer MEDICARE, BC, SELFPAY ==
[2018-10-18 17:12] VITALS: BP 156/90; PULSE 83; RESP 16; TEMP 37.1; O2SAT 96; BMI 23.8
--- NOTE | 2018-10-18 18:21 | RAD_ITS ---
STUDY: X-RAY - RIGHT SHOULDER REASON FOR EXAM: Female, 77 years old. Pain. TECHNIQUE: 4 view(s) of the shoulder. COMPARISON: Chest radiograph dated September 18, 2017 FINDINGS: There are degenerative changes of the acromioclavicular joint. Normal acromion. There are degenerative changes of the glenohumeral joint. There is a subchondral cyst within the humeral head. The soft tissue structures are unremarkable. Normal visualized pulmonary apex. RAD/Shoulder min 2 Views IMPRESSION: Degenerative changes. Electronically Signed: Celeste Ward MD at 19:12 EST Tel , Service support ,
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
[2018-10-18 19:42] VITALS: BP 148/80; PULSE 78; RESP 16; O2SAT 97
== END 2018-10-18 19:45 | disposition home or self-care (01) ==
PROVIDERS: Emergency Provider Emergency Medicine; Family Provider Family Medicine; PCP Family Medicine
DX: M25.511 Pain in right shoulder (principal); M79.601 Pain in right arm; M54.2 Cervicalgia; R53.1 Weakness; R11.0 Nausea; Z72.0 Tobacco use; Z79.01 Long term (current) use of anticoagulants; Z79.891 Long term (current) use of opiate analgesic; Z79.899 Other long term (current) drug therapy
CPT/HCPCS: 73030; 90471; 99284

== ENCOUNTER → 2019-05-12 13:51 | Outpatient (CLI) | payer MEDICARE, BC, SELFPAY ==
--- NOTE | 2019-05-12 13:55 | US_ITS ---
STUDY: ULTRASOUND BREAST - RIGHT REASON FOR EXAM: Female, 78 years old. Palpable lump in the right breast. TECHNIQUE: Axial and longitudinal images of the RIGHT breast were performed with a high resolution ultrasound transducer. COMPARISON: Comparison is made with prior mammogram done earlier today. FINDINGS: RIGHT Breast: There is a 7 mm x 9 mm x 6 mm cyst at the 12:00 position of the breast at 9 cm from the nipple. This corresponds to the palpable abnormality. There is also evidence of a 4 mm x 5 mm x 4 mm cyst with low-level echoes seen at the 1:00 position of the breast at 3 cm from the nipple. US/Breast Limited Unilateral IMPRESSION: 2 small cysts. Routine mammographic follow-up is recommended. ASSESSMENT CATEGORY: BIRADS Category 2: Benign. A letter regarding these results will be sent to the patient by the facility within 30 days. Electronically Signed: Lavelle Sorenson, at 8:27 EDT , Service support ,
--- NOTE | 2019-05-12 13:55 | BI_ITS ---
MAMMOGRAPHY - BILATERAL DIAGNOSTIC REASON FOR EXAM: Female, 78 years old. One-week history of right breast lump. PERTINENT HISTORY: Non-contributory. TECHNIQUE: Digital bilateral breast gwendolyn (3D mammographic acquisition) in the CC and MLO projections. 2-D mediolateral oblique (MLO) and craniocaudad (CC) views of both breasts were obtained. CAD: Full Field Digital Mammography with Computer Added Detection was performed. COMPARISON: No comparison mammograms available at this time. If any prior films become available, an addendum to this report can be generated. FINDINGS: Breast Composition: The breasts are heterogeneously dense, which may obscure small masses. There are no dominant masses or suspicious calcifications. No other significant abnormalities are identified. BI/DIAG MAMM W/CAD, BILAT IMPRESSION: Negative diagnostic mammogram. With the patient's history of a palpable lump in the right breast, correlation with ultrasound is recommended. ASSESSMENT CATEGORY: BIRADS Category 0: Incomplete. Need additional imaging evaluation. A letter regarding these results will be sent to the patient by the facility within 30 days. Approximately 10% of breast cancers are not detected by mammography. A normal mammogram should not delay biopsy of a clinically suspicious abnormality. Electronically Signed: Lavelle Sorenson, at 8:28 EDT , Service support ,
== END ==
PROVIDERS: Family Provider Family Medicine; PCP Family Medicine; Referring Provider Family Medicine; Visit Provider Family Medicine
DX: N63.11 Unspecified lump in the right breast, upper outer quadrant (principal)
CPT/HCPCS: 76642; 77062; 77066; G0279

== ENCOUNTER 2019-09-10 15:57 | Inpatient (IN) | payer MEDICARE, BC, SELFPAY ==
[2019-09-10 15:59] VITALS: PULSE 80; RESP 18; TEMP 36.8; O2SAT 93; BMI 26.3
--- NOTE | 2019-09-10 16:20 | EKG12_ITS ---
Test Reason : DYSRHYTHMIA Blood Pressure : / mmHG Vent. Rate : 069 BPM Atrial Rate : 069 BPM P-R Int : 154 ms QRS Dur : 066 ms QT Int : 388 ms P-R-T Axes : 048 039 039 degrees QTc Int : 415 ms Normal sinus rhythm Normal ECG Confirmed by JEF VILLANUEVA, CHANTAL ([id number]), editor & co founder CHRISTIANA MCDERMOTT ([id number]) on 09/12/2019 9:43:33 AM Referred By: DC Confirmed By:CHANTAL FUCHS MD
--- NOTE | 2019-09-10 16:23 | ED.VIS.GEN ---
History of Present Illness Informant: Patient, Family Narrative: 78-year-old female presents with concern for weakness. States over the past 1 month she has been progressively weak. Describes aching in her entire body. States that she had aching in her chest last night which concerned her because she has had heart attack before in the past. Also states that she has had worsened wheezing. States that she continues to smoke. Denies any nausea, vomiting, abdominal pain, diaphoresis. <Tom Louis - Last Filed: 09/10/19 18:12> <Rick Miguel - Last Filed: 09/11/19 00:25> Chief Complaint: General Illness Past Medical History Prior records reviewed: Yes Past Medical History: - - Hypertension, COPD, DVT, pulmonary embolism Surgical History: angioplasty, appendectomy, hysterectomy, - - Bladder sling Smoking Status: Current every day smoker <Tom Louis - Last Filed: 09/10/19 18:12> - Family History Maternal Family History: Reports: Cancer Paternal Family History: Reports: Heart Disease <Rick Miguel - Last Filed: 09/11/19 00:25> - Allergies and Home Meds Allergies/Adverse Reactions: Allergies bupropion [From Wellbutrin] Allergy (Verified 09/10/19 16:02) Unknown carbidopa [From Sinemet] Allergy (Verified 09/10/19 16:02) Unknown celecoxib [From Celebrex] Allergy (Verified 09/10/19 16:02) Unknown codeine Allergy (Verified 09/10/19 16:02) Unknown levodopa [From Sinemet] Allergy (Verified 09/10/19 16:02) Unknown nitrofurantoin [From Macrobid] Allergy (Verified 09/10/19 16:02) Unknown phenytoin [From Dilantin] Allergy (Verified 09/10/19 16:02) Unknown prochlorperazine [From Compazine] Allergy (Verified 09/10/19 16:02) Unknown Sulfa (Sulfonamide Antibiotics) Allergy (Verified 09/10/19 16:02) Unknown sulfamethoxazole [From Bactrim] Allergy (Verified 09/10/19 16:02) Unknown trimethoprim [From Bactrim] Allergy (Verified 09/10/19 16:02) Unknown Review of Systems General: Denies: Chills, Fever, Sweats Eyes: Denies: Visual changes - bilaterally, Diplopia ENT: Denies: Rhinorrhea, Sore throat Cardiovascular: Denies: Chest pain, Palpitations Respiratory: Denies: Dyspnea, Cough, Dyspnea on exertion Gastrointestinal: Denies: Abdominal pain, Nausea, Vomiting, Diarrhea, Melena, Hematochezia Genitourinary: Denies: Dysuria, Hematuria, Frequency Musculoskeletal: Reports: Myalgias. Denies: Back pain, Extremity Pain Skin: Denies: Rash, Wounds Neurological: Reports: Weakness. Denies: Headache, Numbness <Tom Louis - Last Filed: 09/10/19 18:12> Physical Exam Vital Signs/Narrative: Vital Signs Temp Pulse Resp Pulse Ox 09/10/19 15:59 98.3 F 80 18 93 General: Well nourished, Well developed, No Acute Distress Head: Normocephalic, Atraumatic Eyes: Perrl, EOMI ENT: Moist mucous membranes, No rhinorrhea Neck: Supple, Nontender Cardiovascular: Regular rate, Regular rhythm, No murmurs Respiratory: No distress, Chest nontender, Wheezing Abdomen: Soft, Nontender, Nondistended, Normal bowel sounds Back: Nontender, Normal Inspection Extremities: Nontender, No edema Skin: Normal color, No rash Neurological: Alert, Oriented x3, Cranial nerves II-XII grossly intact, Normal Strength, Normal Sensation Psychological: Normal affect, Normal Mood <Tom Louis - Last Filed: 09/10/19 18:12> Diagnostic/Tx/Re-eval Chest X-Ray - ED: 1 View, No Acute Disease - Rhythm Strip Rhythm Strip: Sinus Rhythm Rate: 69 Ectopy: None - EKG Initial EKG Interpretation: Sinus Rhythm, - - Sinus rhythm at 69 bpm. ME interval 154 ms. QTC of 415 ms. No evidence of ST elevation or depression. - Medical Decision Making Patient appears well nontoxic. Bilateral wheezing on exam. Given aerosols as well as Solu-Medrol. Small fluid bolus. Other lab work within normal limits. Chest x-ray is negative. Patient likely had viral illness which triggered a COPD exacerbation. Requiring 3 L at rest to maintain oxygen saturations above 92%. Given the patient's oxygen requirement she will be admitted to the hospital. Patient admitted in stable condition. <Tom Louis - Last Filed: 09/10/19 18:12> - Medical Decision Making I saw the patient independent from the resident. Patient has a history of COPD. Reports increasing shortness of breath. Bilateral wheezing on exam. Heart regular. Abdomen soft. Extremities nontender with no edema. Hypoxic on room air. Patient had an chest x-ray and blood work. No sign of pneumonia. This is likely COPD exacerbation. She is requiring oxygen. She received breathing treatments and steroids and will be admitted to the hospitalist. <Rick Miguel - Last Filed: 09/11/19 00:25> ED Disposition <Tom Louis - Last Filed: 09/10/19 18:12> <Rick Miguel - Last Filed: 09/11/19 00:25> - Plan for ED Patient: Disposition: Acute Care Hospital [facility] Diagnosis: COPD exacerbation, Hypoxia
--- NOTE | 2019-09-10 16:24 | RAD_ITS ---
STUDY: X-RAY CHEST REASON FOR EXAM: Female, 78 years old. WEAKNESS, CHEST PAIN TECHNIQUE: Single AP portable view of the chest. COMPARISON: 09/18/2017 FINDINGS: The lungs are clear and expanded. There is no demonstrated pleural abnormality. Normal size heart. Normal mediastinum and marilee. Normal visualized pulmonary arteries. There is atherosclerotic tortuosity of the aortic arch and descending thoracic aorta. No acute bony process. There is no demonstrated abnormality of the visualized soft tissue structures of the upper abdomen. RAD/Chest 1 View (Portable) IMPRESSION: Stable, nonacute portable x-ray examination of the chest. Electronically Signed: Vicente Urbano MD (Brooks) at 17:24 EST , Service support ,
[2019-09-10 16:33] VITALS: PULSE 74; RESP 20
[2019-09-10] MEDS: Ipratropium/Albuterol Sulfate 3 ML AMPUL.NEB INHALATION ×2 (16:33→20:32)
[2019-09-10] MEDS: MethylPREDNISolone 125 MG/2 ML Vial IV (16:40)
[2019-09-10 16:48] LABS: Absolute Lymphocyte Count 2.45 X10^3/uL (0.83-4.51); Absolute Neutrophil Count 3.6 X10^3/uL (2.0-7.7); Basophil# 0.07 X10^3/uL; Eosinophil# 0.49 X10^3/uL; Eosinophils% 6.7 % (0-5); Hematocrit 38.6 % (37-47); Hemoglobin 12.5 g/dL (12.0-15.0); Lymphocyte # 2.45 X10^3/ul (4.0); Lymphocyte % 33.5 % (19-41); Mean Corp Hgb Conc 32.4 g/dL (32-36); Mean Corpuscular Hgb 30.1 pg (27.0-32.0); Mean Platelet Vol. 10.1 fl (6.2-12.0); Monocyte# 0.64 X10^3/uL; Monocyte% 8.8 % (0-10); NRBC Flagged by Analyzer 0 % (0-5); Neutrophil # 3.64 X10^3/uL (2.7-7.7); Neutrophil % 49.7 % (47-70); Platelet Count 214 K/mm3 (150-450); RBC Distribution Width CV 12.2 % (11.6-14.6); Red Blood Count 4.15 M/mm3 (4.2-5.4); White Blood Count 7.3 K/mm3 (4.4-11.0)
[2019-09-10 17:07] LABS: ALB/GLOB Ratio 1.2 RATIO (0.9-2.4); AST(SGOT) 16 U/L (15-37); Alanine Aminotransfer ALT/SGPT 18 U/L (13-56); Albumin, Serum 3.4 g/dL (3.2-5.0); Alkaline Phosphatase 108 U/L (45-117); Anion Gap 5 (5-15); BUN 21 mg/dL (7-18); BUN/Creat Ratio 19.4 RATIO (10-20); Calcium,Total 8.9 mg/dL (8.5-10.1); Chloride 110 mmol/L (98-107); Creatinine, Serum 1.08 mg/dL (0.55-1.02); EST Glomerular Filtration Rate 52 mL/min (>60); Est Glom Filt Rate - Afr Amer 63 mL/min (>60); Estimated Creatinine Clearance 37.67 ml/min; Globulin 2.9 g/dL (2.2-4.2); Glucose 92 mg/dL (74-106); Potassium 4.4 mmol/L (3.5-5.1); Protein, Total 6.3 g/dL (6.4-8.2); Sodium Level 143 mmol/L (136-145); Total Bilirubin < 0.10 mg/dL (0.20-1.00)
[2019-09-10 17:37] LABS: Mucous, Urine 0 SEEN /hpf (<or=2+); Red Blood Cells-Urine 0 SEEN /hpf (0-5)
[2019-09-10 17:40] LABS: Color, Urine Yellow (Yellow); Glucose, Dipstick Normal (Normal); Ketone-Dipstick Negative (Negative); Leukocyte Esterase-Dipstick 100 /ul (Negative); Nitrite-Dipstick Negative (Negative); Occult Blood-Urine Negative /ul (Negative); Protein-Dipstick Negative (Negative); Specific Gravity, Urine 1.015 (1.002-1.030); Urine Bilirubin Dipstick Negative (Negative); Urine Clarity Sl. Cloudy (Clear); Urine Urobilinogen Normal (Normal)
[2019-09-10 17:49] LABS: Bacteria 1+ /hpf (None Seen); Squamous Epithelial Cells - UA 0-5 SEEN /hpf (5-10); White Blood Cells 5-10 SEEN /hpf (0-5)
[2019-09-10 18:00] VITALS: PULSE 80; RESP 20
--- NOTE | 2019-09-10 18:43 | PCM.HP.STD ---
History of Present Illness Date of Admission: 09/10/19 Chief Complaint: Not feeling well and shortness of breath The patient is a 78 year old F with PMH as below who presents to the hospital for not feeling well for about a month as well as shortness of breath and increased wheezing. She says that she noticed that she had some achy type chest pain last night and could not catch her breath and it continued into this morning. She was hypoxic in the ER and was had to be placed on 3 L nasal cannula and she is not normally on oxygen at home. She has noticed some general achiness over her entire body especially in her shoulders and in her legs. She denies any fevers or chills. In the ER she was afebrile with normal white count, chest x-ray was unremarkable. Past Medical History Past Medical History (Chronic Problems): Chronic Problems COPD exacerbation (Chronic) Restless legs (Chronic) Recurrent cystitis (Chronic) Pulmonary embolism (Chronic) Age related osteoporosis (Chronic) Myocardial infarction (Chronic) Groin pain (Chronic) Edentulism (Chronic) Deep venous thrombosis (Chronic) H/O steroid therapy (Chronic) Coronary arteriosclerosis (Chronic) Allergies bupropion [From Wellbutrin] Allergy (Verified 09/10/19 16:02) Unknown carbidopa [From Sinemet] Allergy (Verified 09/10/19 16:02) Unknown celecoxib [From Celebrex] Allergy (Verified 09/10/19 16:02) Unknown codeine Allergy (Verified 09/10/19 16:02) Unknown levodopa [From Sinemet] Allergy (Verified 09/10/19 16:02) Unknown nitrofurantoin [From Macrobid] Allergy (Verified 09/10/19 16:02) Unknown phenytoin [From Dilantin] Allergy (Verified 09/10/19 16:02) Unknown prochlorperazine [From Compazine] Allergy (Verified 09/10/19 16:02) Unknown Sulfa (Sulfonamide Antibiotics) Allergy (Verified 09/10/19 16:02) Unknown sulfamethoxazole [From Bactrim] Allergy (Verified 09/10/19 16:02) Unknown trimethoprim [From Bactrim] Allergy (Verified 09/10/19 16:02) Unknown Home Medications: Ambulatory Orders Medication Instructions Recorded Lisinopril [Zestril] 5 mg PO BID 08/17/16 Metoprolol Tartrate [Lopressor 25 mg PO DAILY 08/17/16 (beta karishma)] Pravastatin [Pravachol] 40 mg PO DAILY 08/17/16 Levothyroxine [Synthroid] 50 mcg PO DAILY 07/12/18 Omeprazole 40 mg PO DAILY 07/12/18 Ropinirole HCl [Requip] 0.25 mg PO QHS 07/12/18 proMETHazine tablet [Phenergan 25 mg PO Q6H PRN PRN 07/12/18 tablet] Acetaminophen [Tylenol Tablet] 650 mg PO Q6H PRN PRN tablet 07/25/18 Albuterol IH (ProAir) [Proair Hfa 2 puff INHALATION Q4H PRN PRN 10/18/18 (SP)Vent Pts] Apixaban [Eliquis] 5 mg PO BID 10/18/18 Clonazepam [Klonopin] 1.5 mg PO HS PRN 10/18/18 Oxycodone HCl/Acetaminophen 1 each PO Q6H PRN 10/18/18 [Percocet 5-325 mg Tablet] Surgical History: angioplasty, appendectomy, hysterectomy, - - Bladder sling Psychiatric History: Anxiety, Depression Smoking Status: Current every day smoker Tobacco Use: Cigarettes Alcohol: None Drugs: None - *Family History Maternal History Items: Cancer Paternal History Items: Heart Disease Review of Systems Constitutional: Denies: Chills, Fever, Weight Change HEENT: Denies: Head Aches, Sinus Congestion, Sinus Drainage Cardiovascular: Denies: Chest Pain, Palpitations Respiratory: Reports: Shortness of Breath. Denies: Cough, Shortness of breath at rest, Sputum production Gastrointestinal: Denies: Abdominal Pain, Nausea, Vomiting Genitourinary: Denies: Dysuria Musculoskeletal: Reports: Muscle pain. Denies: Joint Pain, Joint Tenderness Skin: Denies: Rash, Wounds Neurological: Denies: Numbness, Tingling, Focal weakness Psychiatric: Denies: Anxiety, Depression Hematologic/ Lymphatic: Denies: Easy Bruising, Easy Bleeding VTE Information - Inpt Only VTE Present on Admission: No Patient Problems: Active and Suspected Problems Hypoxia (Acute) - Physical Exam Vitals/I&O's: Vital Signs Temp Pulse Resp Pulse Ox 98.3 F 74 20 H 93 09/10/19 15:59 09/10/19 16:33 09/10/19 16:33 09/10/19 15:59 Oxygen Delivery Method Room Air Weight: 153 lb 3.54 oz Body Mass Index (BMI) 26.3 General: Alert, Oriented x3, Cooperative, No apparent distress HEENT: Atraumatic, PERRLA, EOMI, Normocephalic Oral: Dry Mucosa Neck: Supple, No JVD Lungs: No rhonchi, No rales, Wheezes - All lung velázquez with poor air movement Cardiovascular: Regular rate, Regular Rhythm, Normal S1, Normal S2, No murmurs Abdomen: Soft, Non Tender, Non-Distended, No Hepato-splenomegaly Extremities: No edema, Capillary Refill Less than 3 Seconds Skin: No rashes, No breakdown Neurological: Neuro grossly intact, Sensory exam intact to light touch and pain Psych/Mental Status: Normal Affect, Appropriate Laboratory Results 09/10/19 16:40: WBC 7.3, RBC 4.15 L, Hgb 12.5, Hct 38.6, MCV 93.0, MCH 30.1, MCHC 32.4, RDW Std Deviation 42.0, RDW Coeff of Jose M 12.2, Plt Count 214, MPV 10.1, Immature Gran % (Auto) 0.300, Neut % (Auto) 49.7, Lymph % (Auto) 33.5, Dent % (Auto) 8.8, Eos % (Auto) 6.7 H, Baso % (Auto) 1.0, Absolute Neuts (auto) 3.6, Absolute Lymphs (auto) 2.45, Nucleated RBC % 0 09/10/19 16:40: Sodium 143, Potassium 4.4, Chloride 110 H, Carbon Dioxide 28.0, Anion Gap 5, BUN 21 H, Creatinine 1.08 H, Estim Creat Clear Calc 37.67, Est GFR (MDRD) Af Amer 63, Est GFR (MDRD) Non-Af 52 L, BUN/Creatinine Ratio 19.4, Glucose 92, Calcium 8.9, Total Bilirubin < 0.10 L, AST 16, ALT 18, Alkaline Phosphatase 108, Troponin I < 0.015, Total Protein 6.3 L, Albumin 3.4, Globulin 2.9, Albumin/Globulin Ratio 1.2 09/10/19 17:30: Urine Color Yellow, Urine Clarity Sl. Cloudy, Urine pH 6.0, Ur Specific [place] 1.015, Urine Protein Negative, Urine Glucose (UA) Normal, Urine Ketones Negative, Urine Occult Blood Negative, Urine Nitrite Negative, Urine Bilirubin Negative, Urine Urobilinogen Normal, Ur Leukocyte Esterase 100 H, Urine RBC 0 SEEN, Urine WBC 5-10 SEEN, Ur Squamous Epith Cells 0-5 SEEN, Urine Bacteria 1+, Urine Mucus 0 SEEN Assessment/Plan All Active Problems Hypoxia (Acute) Nausea (Resolved) DVT (deep venous thrombosis) (Acute) Pulmonary emboli (Acute) Rheumatoid arteritis (Acute) 1. COPD exacerbation -Given the myalgias there is likely a viral component to this, will obtain a respiratory panel -We will continue with duo nebs as well as steroids -With her being afebrile without a leukocytosis and a clear x-ray there is no indication for antibiotics at this time -She was placed on oxygen by respiratory therapy however there was no hypoxia based on vital signs 2. History of DVTs and PEs -She has been on Eliquis for this ever since and has not had an issue -Continue with the Eliquis 3. Hypothyroidism -Stable -Continue with Synthroid 4. CAD status post stent/HTN/HLD -Blood pressures have been stable while she is been here -Continue with her home blood pressure medications lisinopril and metoprolol -Continue with pravastatin 5. RLS -Stable -Continue with ropinirole 6. GERD -Stable -Continue with PPI 7. Anxiety -Stable -Continue with Klonopin DVT: Eliquis Code Visit Inpatient E&M: [id number] Init Hosp L2
[2019-09-10 18:46] VITALS: BMI 24.3
[2019-09-10 18:48] VITALS: BMI 24.4
[2019-09-10 18:54] VITALS: BP 139/80; PULSE 78; RESP 17; TEMP 36.8; O2SAT 94
[2019-09-10 20:33] VITALS: PULSE 96; RESP 20
[2019-09-10 20:36] VITALS: O2SAT 94
[2019-09-10] MEDS: Pravastatin 40 MG Tablet PO (22:28)
[2019-09-10] MEDS: Lisinopril 5 MG Tablet PO (22:28)
[2019-09-10] MEDS: APIXABAN 5 MG TABLET PO (22:28)
[2019-09-10] MEDS: Pramipexole Di-HCl 0.125 MG Tablet PO (22:28)
[2019-09-10] MEDS: Acetaminophen 325 MG Tablet 650 MG PO (22:33)
[2019-09-11] VITALS (10 sets, daily range): BP systolic 115–136; BP diastolic 55–98; PULSE 75–110; RESP 16–22; TEMP 36.6–37.2; O2SAT 91–95
[2019-09-11] MEDS: oxyCODONE 5 MG Tablet PO ×2 (04:10→21:03)
[2019-09-11] MEDS: Levothyroxine 50 MCG Tablet PO (04:11)
[2019-09-11 06:05] LABS: Absolute Lymphocyte Count 0.91 X10^3/uL (0.83-4.51); Absolute Neutrophil Count 7.4 X10^3/uL (2.0-7.7); Basophil# 0.02 X10^3/uL; Basophil% 0.2 % (0-1); Eosinophil# 0.17 X10^3/uL; Eosinophils% 1.9 % (0-5); Hematocrit 36.8 % (37-47); Lymphocyte # 0.91 X10^3/ul (4.0); Lymphocyte % 10.3 % (19-41); Mean Corp Hgb Conc 32.6 g/dL (32-36); Mean Corpuscular Hgb 29.9 pg (27.0-32.0); Mean Corpuscular Volume 91.5 fL (81-99); Mean Platelet Vol. 10.4 fl (6.2-12.0); Monocyte# 0.28 X10^3/uL; Monocyte% 3.2 % (0-10); NRBC Flagged by Analyzer 0 % (0-5); Neutrophil # 7.42 X10^3/uL (2.7-7.7); Neutrophil % 83.9 % (47-70); Platelet Count 223 K/mm3 (150-450); RBC Distribution Width CV 12.1 % (11.6-14.6); RBC Distribution Width SD 40.7 fl (35.1-43.9); Red Blood Count 4.02 M/mm3 (4.2-5.4); White Blood Count 8.8 K/mm3 (4.4-11.0)
[2019-09-11 06:22] LABS: Anion Gap 5 (5-15); BUN 23 mg/dL (7-18); BUN/Creat Ratio 22.5 RATIO (10-20); Calcium,Total 8.7 mg/dL (8.5-10.1); Chloride 110 mmol/L (98-107); Creatinine, Serum 1.02 mg/dL (0.55-1.02); EST Glomerular Filtration Rate 56 mL/min (>60); Est Glom Filt Rate - Afr Amer 67 mL/min (>60); Estimated Creatinine Clearance 39.89 ml/min; Glucose 143 mg/dL (74-106); Potassium 4.6 mmol/L (3.5-5.1); Sodium Level 142 mmol/L (136-145)
[2019-09-11] MEDS: Ipratropium/Albuterol Sulfate 3 ML AMPUL.NEB INHALATION ×4 (07:08→19:13)
[2019-09-11] MEDS: Acetaminophen 325 MG Tablet 650 MG PO (08:43)
[2019-09-11] MEDS: APIXABAN 5 MG TABLET PO ×2 (10:48→21:11)
[2019-09-11] MEDS: Metoprolol Tartrate 25 MG Tablet PO (10:48)
[2019-09-11] MEDS: Pantoprazole Sodium 40 MG Tablet PO (10:49)
[2019-09-11] MEDS: Lisinopril 5 MG Tablet PO ×2 (10:49→21:11)
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
--- NOTE | 2019-09-11 12:08 | PCM.PN.HOSP ---
Patient Problems: Active and Suspected Problems Hypoxia (Acute) Reason for Visit: COPD exac Subjective: Complains of pain all over for past month. Worse yesterday, especially across her chest that was burning. Vitals/I&O's: Vital Signs Temp Pulse Resp BP Pulse Ox 37.0 C 110 H 22 H 136/72 H 93 09/11/19 06:58 09/11/19 10:48 09/11/19 10:16 09/11/19 06:58 09/11/19 10:16 Oxygen Delivery Method Room Air Weight: 64.41 kg Body Mass Index (BMI) 24.3 Intake and Output for Last 24 Hours 09/09/19 09/10/19 09/11/19 23:59 23:59 23:59 Intake Total 500 / 940 540 / 540 Balance 500 / 940 540 / 540 General: Alert, - - on room air, no respiratory distress, no conversational dyspnea HEENT: Atraumatic, Normocephalic Oral: Moist Mucosa, No Gingival or Mucosal Lesions/ Ulcerations Neck: No Nodes, Trachea Midline Lungs: Clear to auscultation, Normal air movement, No rhonchi, - - upper respiratory wheeze without stridor Cardiovascular: Regular rate, Regular Rhythm, Normal S1, Normal S2, No murmurs Abdomen: Bowel Sounds Present, Soft, Non Tender, Non-Distended, No Hepato-splenomegaly Extremities: No edema, No Calf Tenderness Skin: No rashes, No breakdown Psych/Mental Status: Appropriate, Anxious Laboratory Results 09/10/19 16:40: WBC 7.3, RBC 4.15 L, Hgb 12.5, Hct 38.6, MCV 93.0, MCH 30.1, MCHC 32.4, RDW Std Deviation 42.0, RDW Coeff of Jose M 12.2, Plt Count 214, MPV 10.1, Immature Gran % (Auto) 0.300, Neut % (Auto) 49.7, Lymph % (Auto) 33.5, Taney % (Auto) 8.8, Eos % (Auto) 6.7 H, Baso % (Auto) 1.0, Absolute Neuts (auto) 3.6, Absolute Lymphs (auto) 2.45, Nucleated RBC % 0 09/10/19 16:40: Sodium 143, Potassium 4.4, Chloride 110 H, Carbon Dioxide 28.0, Anion Gap 5, BUN 21 H, Creatinine 1.08 H, Estim Creat Clear Calc 37.67, Est GFR (MDRD) Af Amer 63, Est GFR (MDRD) Non-Af 52 L, BUN/Creatinine Ratio 19.4, Glucose 92, Calcium 8.9, Total Bilirubin < 0.10 L, AST 16, ALT 18, Alkaline Phosphatase 108, Troponin I < 0.015, Total Protein 6.3 L, Albumin 3.4, Globulin 2.9, Albumin/Globulin Ratio 1.2 09/10/19 17:30: Urine Color Yellow, Urine Clarity Sl. Cloudy, Urine pH 6.0, Ur Specific Chester 1.015, Urine Protein Negative, Urine Glucose (UA) Normal, Urine Ketones Negative, Urine Occult Blood Negative, Urine Nitrite Negative, Urine Bilirubin Negative, Urine Urobilinogen Normal, Ur Leukocyte Esterase 100 H, Urine RBC 0 SEEN, Urine WBC 5-10 SEEN, Ur Squamous Epith Cells 0-5 SEEN, Urine Bacteria 1+, Urine Mucus 0 SEEN 09/11/19 05:35: WBC 8.8, RBC 4.02 L, Hgb 12.0, Hct 36.8 L, MCV 91.5, MCH 29.9, MCHC 32.6, RDW Std Deviation 40.7, RDW Coeff of Jose M 12.1, Plt Count 223, MPV 10.4, Immature Gran % (Auto) 0.500, Neut % (Auto) 83.9 H, Lymph % (Auto) 10.3 L, Taney % (Auto) 3.2, Eos % (Auto) 1.9, Baso % (Auto) 0.2, Absolute Neuts (auto) 7.4, Absolute Lymphs (auto) 0.91, Nucleated RBC % 0 09/11/19 05:35: Sodium 142, Potassium 4.6, Chloride 110 H, Carbon Dioxide 27.0, Anion Gap 5, BUN 23 H, Creatinine 1.02, Estim Creat Clear Calc 39.89, Est GFR (MDRD) Af Amer 67, Est GFR (MDRD) Non-Af 56 L, BUN/Creatinine Ratio 22.5 H, Glucose 143 H, Calcium 8.7 Current Medications Acetaminophen (Tylenol) 650 mg PO Q6H PRN PRN PRN Reason: Pain Score 1-3/Temp > 100.7 F Last Admin: 09/11/19 08:43 Dose: 650 mg Documented by: Albuterol/Ipratropium (Duoneb) 3 ml INHALATION Q4HWA.RT [facility] Last Admin: 09/11/19 10:16 Dose: 3 ml Documented by: Apixaban (Eliquis) 5 mg PO BID [facility] Last Admin: 09/11/19 10:48 Dose: 5 mg Documented by: Clonazepam (Klonopin) 1.5 mg PO HS PRN PRN Reason: ANXIETY Levothyroxine Sodium (Synthroid) 50 mcg PO DAILY@0600 [facility] Last Admin: 09/11/19 04:11 Dose: 50 mcg Documented by: Lisinopril (Zestril) 5 mg PO BID [facility] Last Admin: 09/11/19 10:49 Dose: 5 mg Documented by: Methylprednisolone (Solu-Medrol) 40 mg IV Q12 [facility] Metoprolol Tartrate (Lopressor (Beta Bladimir)) 25 mg PO DAILY [facility] Last Admin: 09/11/19 10:48 Dose: 25 mg Documented by: Ondansetron HCl (Zofran) 4 mg IV Q8H PRN PRN PRN Reason: NAUSEA/VOMITING Pantoprazole Sodium (Protonix) 40 mg PO DAILY [facility] Last Admin: 09/11/19 10:49 Dose: 40 mg Documented by: Pramipexole Dihydrochloride (Mirapex) 0.125 mg PO QHS [facility] Last Admin: 09/10/19 22:28 Dose: 0.125 mg Documented by: Pravastatin Sodium (Pravachol) 40 mg PO DAILY@2200 [facility] Last Admin: 09/10/19 22:28 Dose: 40 mg Documented by: Sodium Chloride () 10 - 40 ml IV UD PRN PRN Reason: SALINE FLUSH STROKE Vital Signs/Narrative: Vital Signs Pulse Resp Pulse Ox 09/11/19 10:48 110 H 09/11/19 10:16 109 H 22 H 93 Medical Necessity - Tobacco Use Smoking Status: Current every day smoker Tobacco Use: Cigarettes Assessment/Plan All Active Problems Hypoxia (Acute) Nausea (Resolved) DVT (deep venous thrombosis) (Acute) Pulmonary emboli (Acute) Rheumatoid arteritis (Acute) 1. acute exacerbation of COPD no reported hypoxia on room air wean steroids check ambulatory pulse ox follow up with pulmonology as outpt check resp viral panel--still pending 2. VTE, chronic apixaban Code Visit Inpatient E&M: 17757 Subs Hosp L2
[2019-09-11] MEDS: Pravastatin 40 MG Tablet PO (21:11)
[2019-09-11] MEDS: Pramipexole Di-HCl 0.125 MG Tablet PO (21:11)
[2019-09-11] MEDS: 0.9% Saline Lock 10 ML Syringe IV ×2 (21:12→22:31)
[2019-09-12 02:30] VITALS: BP 126/66; PULSE 82; RESP 18; TEMP 36.9; O2SAT 93
[2019-09-12] MEDS: Levothyroxine 50 MCG Tablet PO (05:36)
[2019-09-12 09:51] VITALS: BP 128/67; PULSE 97; RESP 20; TEMP 36.7; O2SAT 92
[2019-09-12] MEDS: Polyethylene Glycol 3350 17 GM PACKET PO (09:55)
[2019-09-12 09:56] VITALS: PULSE 97
[2019-09-12] MEDS: Metoprolol Tartrate 25 MG Tablet PO (09:56)
[2019-09-12] MEDS: Lisinopril 5 MG Tablet PO (09:56)
[2019-09-12] MEDS: Pantoprazole Sodium 40 MG Tablet PO (09:56)
[2019-09-12] MEDS: APIXABAN 5 MG TABLET PO (09:56)
[2019-09-12] MEDS: 0.9% Saline Lock 10 ML Syringe IV (09:58)
[2019-09-12 11:01] VITALS: PULSE 84; RESP 12
[2019-09-12] MEDS: Ipratropium/Albuterol Sulfate 3 ML AMPUL.NEB INHALATION (11:01)
--- NOTE | 2019-09-12 11:10 | DCINST_ITS ---
- Discharge Diagnoses Current Active Problems: Current Active and Chronic Problems COPD exacerbation (Chronic) Hypoxia (Acute) You will use the following diet at home:: No restrictions Your food should be the consistency of: Regular Your liquids should be the consistency of: Regular/Thin Discharge Activity: Return to Normal Activity Call your doctor if you observe: Shortness of breath Allergies/Adverse Reactions: Allergies bupropion [From Wellbutrin] Allergy (Verified 09/10/19 16:02) Unknown carbidopa [From Sinemet] Allergy (Verified 09/10/19 16:02) Unknown celecoxib [From Celebrex] Allergy (Verified 09/10/19 16:02) Unknown codeine Allergy (Verified 09/10/19 16:02) Unknown levodopa [From Sinemet] Allergy (Verified 09/10/19 16:02) Unknown nitrofurantoin [From Macrobid] Allergy (Verified 09/10/19 16:02) Unknown phenytoin [From Dilantin] Allergy (Verified 09/10/19 16:02) Unknown prochlorperazine [From Compazine] Allergy (Verified 09/10/19 16:02) Unknown Sulfa (Sulfonamide Antibiotics) Allergy (Verified 09/10/19 16:02) Unknown sulfamethoxazole [From Bactrim] Allergy (Verified 09/10/19 16:02) Unknown trimethoprim [From Bactrim] Allergy (Verified 09/10/19 16:02) Unknown Medications to take at Discharge Lisinopril [Zestril] 5 mg PO BID 08/17/16 Metoprolol Tartrate [Lopressor (beta karishma)] 25 mg PO DAILY 08/17/16 Pravastatin [Pravachol] 40 mg PO DAILY 08/17/16 Levothyroxine [Synthroid] 50 mcg PO DAILY 07/12/18 Omeprazole 40 mg PO DAILY 07/12/18 Ropinirole HCl [Requip] 0.25 mg PO QHS 07/12/18 proMETHazine tablet [Phenergan tablet] 25 mg PO Q6H PRN PRN 07/12/18 Acetaminophen [Tylenol Tablet] 650 mg PO Q6H PRN PRN tablet 07/25/18 Albuterol IH (ProAir) [Proair Hfa] 2 puff INHALATION Q4H PRN PRN 10/18/18 Apixaban [Eliquis] 5 mg PO BID 10/18/18 Clonazepam [Klonopin] 1.5 mg PO HS PRN 10/18/18 Oxycodone HCl/Acetaminophen [Percocet 5-325 mg Tablet] 1 each PO Q6H PRN 10/18/18 Prednisone 4 tab PO DAILY #20 tab.ds.pk 09/12/19 The following prescriptions were given: Prednisone 4 tab PO DAILY #20 tab.ds.pk Transmission Status: Pending to [facility] Primary Care Physician: Boy Miller MD [Primary Care Provider] - Within 2 Weeks Test Results: Test results from this visit will be discussed in further detail at your follow-up appointment, if applicable. Please Follow Up With: Boy Miller MD Please Follow Up With: Obi Reid MD When: 09/14/2019, already scheduled Proposed Discharge Date: 09/12/19
[2019-09-12 11:11] VITALS: O2SAT 93
--- NOTE | 2019-09-12 11:12 | DS.PCM_ITS ---
Discharge Date and Diagnosis - Problem List Patient Problems: Active and Suspected Problems Hypoxia (Acute) Date of Admission: 09/10/19 Date of Discharge: 09/12/19 - Primary Discharge Diagnosis Active and Suspected Problems Hypoxia (Acute) acute exacerbation of COPD - Secondary Discharge Diagnosis Chronic Problems COPD exacerbation (Chronic) Restless legs (Chronic) Recurrent cystitis (Chronic) Pulmonary embolism (Chronic) Age related osteoporosis (Chronic) Myocardial infarction (Chronic) Groin pain (Chronic) Edentulism (Chronic) Deep venous thrombosis (Chronic) H/O steroid therapy (Chronic) Coronary arteriosclerosis (Chronic) Hospital Course and Treatment Imaging Results: Clinical Impression(s) from Imaging Studies Chest X-Ray 09/10/19 16:24 IMPRESSION: Stable, nonacute portable x-ray examination of the chest. Electronically Signed: Vicente Urbano MD (Brooks) at 17:24 EST , Service support , Operations: None Procedures: None Summary of Care Provided: The patient is a 78 year old F presents with general malaise and shortness of breath. Reportedly, the patient was hypoxic in the emergency room, however, I do not see any definitive evidence that the patient was hypoxic. Patient was started on steroids as well as bronchodilators. No infiltrates. Patient was started steroids and did better. Patient had respiratory panel that was normal. Patient be discharged with a prednisone burst. Patient did get an influenza vaccination while she was here. [] Patient Problems: Active and Suspected Problems Hypoxia (Acute) - Physical Exam Vitals/I&O's: Vital Signs Temp Pulse Resp BP Pulse Ox 36.7 C 97 20 H 128/67 H 92 09/12/19 09:51 09/12/19 09:56 09/12/19 09:51 09/12/19 09:51 09/12/19 09:51 Oxygen Flow Rate (L/min) 1 Oxygen Delivery Method Room Air Weight: 64.41 kg Body Mass Index (BMI) 24.3 Intake and Output for Last 24 Hours 09/10/19 09/11/19 09/12/19 23:59 23:59 23:59 Intake Total 500 / 940 540 / 540 Balance 500 / 940 540 / 540 General: Alert, Cooperative, No apparent distress HEENT: Atraumatic, Normocephalic Oral: Moist Mucosa, No Gingival or Mucosal Lesions/ Ulcerations Lungs: Clear to auscultation, Normal air movement Cardiovascular: Regular rate, Regular Rhythm, Normal S1, Normal S2 Microbiology Past 72 Hours 09/10/19 20:37 Mucosa - Nose Respiratory Panel (PCR) - Final Current Medications Acetaminophen (Tylenol) 650 mg PO Q6H PRN PRN PRN Reason: Pain Score 1-3/Temp > 100.7 F Last Admin: 09/11/19 08:43 Dose: 650 mg Documented by: Albuterol/Ipratropium (Duoneb) 3 ml INHALATION Q4HWA.RT [facility] Last Admin: 09/12/19 11:01 Dose: 3 ml Documented by: Apixaban (Eliquis) 5 mg PO BID [facility] Last Admin: 09/12/19 09:56 Dose: 5 mg Documented by: Clonazepam (Klonopin) 1.5 mg PO HS PRN PRN Reason: ANXIETY Levothyroxine Sodium (Synthroid) 50 mcg PO DAILY@0600 [facility] Last Admin: 09/12/19 05:36 Dose: 50 mcg Documented by: Lisinopril (Zestril) 5 mg PO BID [facility] Last Admin: 09/12/19 09:56 Dose: 5 mg Documented by: Methylprednisolone (Solu-Medrol) 40 mg IV Q12 [facility] Last Admin: 09/12/19 09:56 Dose: 40 mg Documented by: Metoprolol Tartrate (Lopressor (Beta Bladimir)) 25 mg PO DAILY [facility] Last Admin: 09/12/19 09:56 Dose: 25 mg Documented by: Ondansetron HCl (Zofran) 4 mg IV Q8H PRN PRN PRN Reason: NAUSEA/VOMITING Oxycodone HCl (Oxyir) 5 mg PO Q6H PRN PRN Reason: Pain Score 6-10/10 Last Admin: 09/11/19 21:03 Dose: 5 mg Documented by: Pantoprazole Sodium (Protonix) 40 mg PO DAILY [facility] Last Admin: 09/12/19 09:56 Dose: 40 mg Documented by: Polyethylene Glycol (Miralax) 17 gm PO DAILY [facility] Last Admin: 09/12/19 09:55 Dose: 17 gm Documented by: Pramipexole Dihydrochloride (Mirapex) 0.125 mg PO QHS [facility] Last Admin: 09/11/19 21:11 Dose: 0.125 mg Documented by: Pravastatin Sodium (Pravachol) 40 mg PO DAILY@2200 [facility] Last Admin: 09/11/19 21:11 Dose: 40 mg Documented by: Sodium Chloride () 10 - 40 ml IV UD PRN PRN Reason: SALINE FLUSH Last Admin: 09/12/19 09:58 Dose: 10 ml Documented by: Discharge Diet: No Restrictions Discharge Activity: Return to Normal Activity Call your doctor if you observe: Shortness of breath Home Medications: Medications to take at Discharge Lisinopril [Zestril] 5 mg PO BID 08/17/16 Metoprolol Tartrate [Lopressor (beta bladimir)] 25 mg PO DAILY 08/17/16 Pravastatin [Pravachol] 40 mg PO DAILY 08/17/16 Levothyroxine [Synthroid] 50 mcg PO DAILY 07/12/18 Omeprazole 40 mg PO DAILY 07/12/18 Ropinirole HCl [Requip] 0.25 mg PO QHS 07/12/18 proMETHazine tablet [Phenergan tablet] 25 mg PO Q6H PRN PRN 07/12/18 Acetaminophen [Tylenol Tablet] 650 mg PO Q6H PRN PRN tablet 07/25/18 Albuterol IH (ProAir) [Proair Hfa] 2 puff INHALATION Q4H PRN PRN 10/18/18 Apixaban [Eliquis] 5 mg PO BID 10/18/18 Clonazepam [Klonopin] 1.5 mg PO HS PRN 10/18/18 Oxycodone HCl/Acetaminophen [Percocet 5-325 mg Tablet] 1 each PO Q6H PRN 10/18/18 Prednisone 4 tab PO DAILY #20 tab.ds.pk 09/12/19 Following Prescrptions Were Given to Patient: Prednisone 4 tab PO DAILY #20 tab.ds.pk Transmission Status: Pending to [id number] [facility] Primary Care Physician: Boy Miller MD [Primary Care Provider] - Within 2 Weeks Please Follow Up With: Boy Miller MD Please Follow Up With: Obi Reid MD When: 09/14/2019, already scheduled Disposition: Home Minutes spent on discharge:: 32 Patient Condition:: Good Medical Necessity - Tobacco Use Smoking Status: Current every day smoker Tobacco Use: Cigarettes Meaningful Use Info Meaningful Use Diagnoses (Choose all that apply): None applicable Code Visit Inpatient E&M: 53155 Disch Hosp
--- NOTE | 2019-09-12 12:10 | CASEMGMT ---
Therapy spoke with ROSIE regarding patient being tearful due to loss of her . SW met with patient, introduced self and role at [facility]. Patient instantly opened up and spoke with SW regarding her late . She talked about her family and all that they do for her. SW gave her a pamphlet on [facility]. She is aware of the services as her was with Hospice and went to their inpatient unit his last few days. She said she didn't feel like she needed it. SW encouraged her to not be afraid to ask for help. She thanked SW for stopping by and she said it was nice to talk with someone. Fawn MCGRAW MSW
--- NOTE | 2019-09-15 16:09 | CASEMGMT ---
CHRIST ASHLEY Discharge Follow-Up Phone Call. Parul: Genaro Strata: 3 Discharge Date: 09/12/19 Adm Dx: COPD Exac. Call to pt to inquire about how she has been doing since being discharged from the hospital. Pt stated she is doing pretty good just real weak still. She states she is getting stronger, though, and taking time to rest/recover. Asked pt if she feels she would benefit from OP therapy for strengthening but she declines, stating, I'm doing pretty good around here. I don't think I need any of that. Pt states she was not able to go to Dr Reid's appt yesterday but she plans to reschedule that soon. She is aware of the appt with Dr Miller on 09/21 and plans on going to that. She states she was able to grain picker the Prednisone and is taking that as instructed and denies having any questions about the medications or other d/c instructions. CHRIST ASHLEY thanked pt for choosing [facility]. Pt thanked CHRIST ASHLEY for calling to check on her. Santi CHRISTOPHER RN, CM
== END 2019-09-12 14:55 | disposition home or self-care (01) | DRG 192 ==
LOC: ED 18:14 → PCU 18:50
PROVIDERS: Admitting Provider Family Medicine; Emergency Provider Emergency Medicine; Family Provider Family Medicine; PCP Family Medicine
DX: J44.1 Chronic obstructive pulmonary disease with (acute) exacerbation (principal); E03.9 Hypothyroidism, unspecified; I25.10 Atherosclerotic heart disease of native coronary artery without angina pectoris; E78.5 Hyperlipidemia, unspecified; G25.81 Restless legs syndrome; F41.9 Anxiety disorder, unspecified; F17.210 Nicotine dependence, cigarettes, uncomplicated; M81.0 Age-related osteoporosis without current pathological fracture; Z86.711 Personal history of pulmonary embolism; Z86.718 Personal history of other venous thrombosis and embolism; Z95.5 Presence of coronary angioplasty implant and graft; I25.2 Old myocardial infarction; Z79.01 Long term (current) use of anticoagulants
CPT/HCPCS: 36415; 71045; 80048; 80053; 81001; 84484; 85025; 87633; 93005; 94640; 97161; 97166; 99285; 99406; J7040; A4216

== ENCOUNTER 2019-11-27 11:47 | Emergency (ER) | payer MEDICARE, BC, SELFPAY ==
[2019-11-27 11:48] VITALS: BP 130/81; PULSE 76; RESP 18; TEMP 36.8; O2SAT 95; BMI 27.1
--- NOTE | 2019-11-27 12:09 | CT_ITS ---
STUDY: CT ABDOMEN AND PELVIS WITHOUT CONTRAST REASON FOR EXAM: Female, 78 years old. RIGHT FLANK PAIN RADIATES ACROSS ABD TO LEFT SIDE AND DOWN RIGHT LEG X1 YEAR RADIATION DOSAGE (If Supplied By Facility): CTDIvol = ( 6.89 ) mGy, DLP = ( 304.50 ) mGycm TECHNIQUE: Transaxial images were obtained from the dome of the diaphragm to the symphysis pubis without oral contrast, and without intravenous contrast. Sagittal and coronal images were reconstructed. Individualized dose optimization techniques were used for this CT. COMPARISON: Comparison is made with prior study dated February 20, 2018. FINDINGS: The visualized lung bases are unremarkable. Coronary artery calcification. Normal liver. Normal gallbladder and extrahepatic biliary system. Normal spleen. Normal pancreas. Normal bilateral adrenal glands. Normal right kidney. Nonspecific bilateral perinephric stranding. There is moderate cortical atrophy of the left kidney, consistent with chronic medical renal disease. Normal visualized stomach. Normal small intestine. There are multiple colonic diverticula consistent with diverticulosis. There are surgical clips in the region of the appendix consistent with a prior appendectomy. There is diffuse atherosclerotic calcification of the abdominal aorta and the major visceral branches. There is evidence of an infrarenal abdominal aortic aneurysm with a transverse dimension of 3.5 cm. This is unremarkable. Normal inferior vena cava. Normal retroperitoneum. Normal urinary bladder. There is a stable 7.1 mm rounded fatty density adjacent to the right side of the urinary bladder along its base. There is absence of the uterus consistent with a prior hysterectomy. Normal abdominal wall. There are diffuse degenerative changes of the visualized lumbar spine. Straightening of the normal lumbar lordosis. CT/Abdomen/Pelvis without Cont IMPRESSION: Nonspecific bilateral perinephric stranding. Sigmoid diverticulosis. Stable aneurysmal dilatation of the distal aorta. Electronically Signed: Lavelle Sorenson, at 13:22 EDT , Service support ,
--- NOTE | 2019-11-27 12:11 | ED.DCSUM_ITS ---
History of Present Illness Chief Complaint: Flank Pain Informant: Patient Onset: Month(s) - 2 Context: - - unk Timing: Waxes and wanes Quality: ache/pain Location: right low back and right abd, radiates sometimes into R groin Current Severity: Severe Maximum Severity: Severe Worsened by: movement Relieved by: remaining still Associated Symptoms: sometimes radiates down RLE to foot w/ numbness Narrative: Patient has had this pain for 2 months. She saw her PCP for it, was told it may be some arthritis. She has not returned although the pain has been persistent. Recently it worsened since yesterday so she comes to the ER. She states that there is nothing different, it is just worse today. It is now worse after eating. She has had a prior hysterectomy but no other abdominal surgeries. She has a known AAA that is being monitored. She states it is a lot worse to move around and at times it shoots down her right lower extremity to her foot and feels kind of numb when that happens. She denies any bowel or bladder dysfunction. She has history of trouble urinating off and on, sometimes she urinates frequently other times less but she does go every day, none of that is new or different with the symptoms in the last 2 months. Later in history patient notes that she did fall and landed on her right side injuring the affected area at one point around 1-2 months ago. She is unsure if she started having the pain prior to this and then it was worse with the fall, or if the fall triggered the pain. - Past Medical History (1) AAA (abdominal aortic aneurysm) Status: Chronic (2) DVT (deep venous thrombosis) Status: Chronic (3) Pulmonary emboli Status: Chronic (4) Rheumatoid arteritis Status: Chronic (5) Age related osteoporosis Status: Chronic (6) Coronary arteriosclerosis Status: Chronic (7) Groin pain Status: Chronic (8) Myocardial infarction Status: Chronic (9) Recurrent cystitis Status: Chronic (10) Restless legs Status: Chronic Past Medical History - Allergies and Home Meds Allergies/Adverse Reactions: Allergies bupropion [From Wellbutrin] Allergy (Verified 11/27/19 11:48) Unknown carbidopa [From Sinemet] Allergy (Verified 11/27/19 11:48) Unknown celecoxib [From Celebrex] Allergy (Verified 11/27/19 11:48) Unknown codeine Allergy (Verified 11/27/19 11:48) Unknown levodopa [From Sinemet] Allergy (Verified 11/27/19 11:48) Unknown nitrofurantoin [From Macrobid] Allergy (Verified 11/27/19 11:48) Unknown phenytoin [From Dilantin] Allergy (Verified 11/27/19 11:48) Unknown prochlorperazine [From Compazine] Allergy (Verified 11/27/19 11:48) Unknown Sulfa (Sulfonamide Antibiotics) Allergy (Verified 11/27/19 11:48) Unknown sulfamethoxazole [From Bactrim] Allergy (Verified 11/27/19 11:48) Unknown trimethoprim [From Bactrim] Allergy (Verified 11/27/19 11:48) Unknown Primary Care Physician: Boy Miller MD [Primary Care Provider] - Surgical History: angioplasty, appendectomy, hysterectomy, - - Bladder sling Lives: With Family Smoking Status: Current every day smoker - Family History Maternal Family History: Reports: Cancer Paternal Family History: Reports: Heart Disease Review of Systems General: Reports: Fever - 1 week ago, resolved, Subjective. Denies: Chills, Sweats Eyes: Denies: Visual changes - bilaterally, Diplopia ENT: Denies: Rhinorrhea, Sore throat Cardiovascular: Denies: Chest pain, Palpitations Respiratory: Denies: Dyspnea, Cough, Dyspnea on exertion Gastrointestinal: Reports: Abdominal pain. Denies: Nausea, Vomiting, Diarrhea, Melena, Hematochezia Genitourinary: Reports: Frequency. Denies: Dysuria, Hematuria Musculoskeletal: Reports: Back pain, Extremity Pain. Denies: Neck pain, Swelling Skin: Denies: Rash, Wounds Neurological: Reports: Parasthesia - RLE when painful down leg. Denies: Headache, Weakness Physical Exam Vital Signs/Narrative: Vital Signs Temp Pulse Resp BP Pulse Ox 11/27/19 11:48 98.2 F 76 18 130/81 H 95 Inital Vital Signs reviewed: Yes General: Well nourished, Well developed, No Acute Distress Head: Normocephalic, Atraumatic Eyes: Perrl, EOMI ENT: Moist mucous membranes, No rhinorrhea Neck: Supple, Nontender Cardiovascular: Regular rate, Regular rhythm, No murmurs Respiratory: No distress, CTA bilaterally, Chest nontender Abdomen: Soft, Nondistended, Normal bowel sounds, Tender - RUQ through down to RLQ; otherwise, NT. Negative for: Guarding, Rebound tenderness, Pulsatile mass Back: Normal Inspection, - - + Tender to palpation right side, right pelvic brim, increased pain with external rotation at the hip. Increased pain with straight leg raises, which are negative for radicular symptoms bilaterally including cross leg straight leg raise. This was done while sitting.. Negative for: CVA tenderness, Spinal tenderness Extremities: Nontender, No edema. Negative for: Calf Tenderness Skin: Normal color, No rash, No Trauma Neurological: Alert, Oriented x3, Cranial nerves II-XII grossly intact, Normal Strength, Normal Sensation, Normal DTR Psychological: Normal affect, Normal Mood Diagnostic/Tx/Re-eval Impressions Abdomen/Pelvis CT 11/27/19 12:09 IMPRESSION: Nonspecific bilateral perinephric stranding. Sigmoid diverticulosis. Stable aneurysmal dilatation of the distal aorta. Electronically Signed: Lavelle Yas, at 13:22 EDT , Service support , 11/27/19 12:09 Abdomen/Pelvis without Cont [CT] Stat Laboratory Results 11/27/19 11/27/19 11/27/19 12:28 12:28 14:02 WBC 6.8 RBC 4.42 Hgb 12.8 Hct 40.5 MCV 91.6 MCH 29.0 MCHC 31.6 L RDW Std Deviation 42.5 RDW Coeff of Jose M 12.6 Plt Count 202 MPV 10.3 Immature Gran % (Auto) 0.100 Neut % (Auto) 59.2 Lymph % (Auto) 27.0 Ogle % (Auto) 7.8 Eos % (Auto) 5.0 Baso % (Auto) 0.9 Absolute Neuts (auto) 4.0 Absolute Lymphs (auto) 1.84 Nucleated RBC % 0 Sodium 142 Potassium 4.3 Chloride 111 H Carbon Dioxide 27.0 Anion Gap 4 L BUN 18 Creatinine 0.88 Estim Creat Clear Calc 42.34 Est GFR (MDRD) Af Amer 80 Est GFR (MDRD) Non-Af 66 BUN/Creatinine Ratio 20.4 H Glucose 95 Calcium 9.5 Total Bilirubin 0.30 AST 17 ALT 14 Alkaline Phosphatase 117 Total Protein 7.0 Albumin 3.7 Globulin 3.3 Albumin/Globulin Ratio 1.1 Urine Color Yellow Urine Clarity Cloudy Urine pH 6.0 Ur Specific [place] 1.015 Urine Protein Negative Urine Glucose (UA) Normal Urine Ketones Negative Urine Occult Blood 10 H Urine Nitrite Positive H Urine Bilirubin Negative Urine Urobilinogen Normal Ur Leukocyte Esterase 100 H Urine RBC 0 SEEN Urine WBC 5-10 SEEN Ur Squamous Epith Cells 0-5 SEEN Urine Bacteria 4+ Urine Mucus 0 SEEN - Medical Decision Making Patient is feeling better after morphine. Her work-up is unremarkable except for her urinalysis which does show signs of infection. However she has no leukocytosis, signs of perinephric asymmetry on her CT, fever, vomiting. Given all this my suspicion is that she does not have pyelonephritis. She is very well-appearing. She lives with family and is comfortable going home. She is worried about her stomach from taking the antibiotic we are prescribing her. She also states that she may or may not be starting to get a yeast infection, she had some perineal itching and when nurses straight catheter, they concurred that her perineum appeared to be erythematous and a little excoriated but there was no yeast-appearing discharge. Will prescribe her fluconazole, and since we are giving her that, instead of Cipro which could prolong her QT interval, will place her on cephalexin since she has allergies to nitrofurantoin and sulfa medication. She is comfortable discharge home. It is very possible that this is all musculoskeletal pain in her right flank especially given the fall that she had. There is no sign of any fractures on the CT. I do not think putting her on a narcotic will be necessary as an outpatient, since she is already relatively limited with regards to movement and weightbearing due to this pain, and could be at a high risk of falling further with narcotics. ED Disposition - Plan for ED Patient: Disposition: Home or Assisted Living Diagnosis: UTI (urinary tract infection), Right flank pain Instructions: FLANK PAIN, Uncertain Cause, Understanding Urinary Tract Inf ections (UTIs) Prescriptions: Fluconazole 1 tab PO X1 #1 tab Transmission Status: Pending to [id number] Cephalexin [Keflex] 500 mg PO TID #21 cap Transmission Status: Pending to [id number] Referrals: Boy Miller MD [Primary Care Provider] - 3-5 Days if not improving
[2019-11-27 12:43] LABS: Absolute Lymphocyte Count 1.84 X10^3/uL (0.83-4.51); Basophil# 0.06 X10^3/uL; Basophil% 0.9 % (0-1); Eosinophil# 0.34 X10^3/uL; Hematocrit 40.5 % (37-47); Hemoglobin 12.8 g/dL (12.0-15.0); Lymphocyte # 1.84 X10^3/ul (4.0); Mean Corp Hgb Conc 31.6 g/dL (32-36); Mean Corpuscular Volume 91.6 fL (81-99); Mean Platelet Vol. 10.3 fl (6.2-12.0); Monocyte# 0.53 X10^3/uL; Monocyte% 7.8 % (0-10); NRBC Flagged by Analyzer 0 % (0-5); Neutrophil # 4.03 X10^3/uL (2.7-7.7); Neutrophil % 59.2 % (47-70); Platelet Count 202 K/mm3 (150-450); RBC Distribution Width CV 12.6 % (11.6-14.6); RBC Distribution Width SD 42.5 fl (35.1-43.9); Red Blood Count 4.42 M/mm3 (4.2-5.4); White Blood Count 6.8 K/mm3 (4.4-11.0)
[2019-11-27] MEDS: Morphine 4 MG/ML Syringe IV (12:44)
[2019-11-27] MEDS: 0.9% Normal Saline 1,000 ML 125 ML IV (12:44)
[2019-11-27] MEDS: Ondansetron 4 MG/2 ML Vial IV (12:45)
[2019-11-27 12:51] LABS: ALB/GLOB Ratio 1.1 RATIO (0.9-2.4); AST(SGOT) 17 U/L (15-37); Alanine Aminotransfer ALT/SGPT 14 U/L (13-56); Albumin, Serum 3.7 g/dL (3.2-5.0); Alkaline Phosphatase 117 U/L (45-117); Anion Gap 4 (5-15); BUN 18 mg/dL (7-18); BUN/Creat Ratio 20.4 RATIO (10-20); Calcium,Total 9.5 mg/dL (8.5-10.1); Chloride 111 mmol/L (98-107); Creatinine, Serum 0.88 mg/dL (0.55-1.02); EST Glomerular Filtration Rate 66 mL/min (>60); Est Glom Filt Rate - Afr Amer 80 mL/min (>60); Estimated Creatinine Clearance 42.34 ml/min; Globulin 3.3 g/dL (2.2-4.2); Glucose 95 mg/dL (74-106); Potassium 4.3 mmol/L (3.5-5.1); Sodium Level 142 mmol/L (136-145)
[2019-11-27 14:01] VITALS: BP 132/89; PULSE 70; RESP 18; O2SAT 98
[2019-11-27 14:03] LABS: Mucous, Urine 0 SEEN /hpf (<or=2+)
[2019-11-27 14:14] LABS: Color, Urine Yellow (Yellow); Glucose, Dipstick Normal (Normal); Ketone-Dipstick Negative (Negative); Leukocyte Esterase-Dipstick 100 /ul (Negative); Nitrite-Dipstick Positive (Negative); Occult Blood-Urine 10 /ul (Negative); Protein-Dipstick Negative (Negative); Specific Gravity, Urine 1.015 (1.002-1.030); Urine Bilirubin Dipstick Negative (Negative); Urine Clarity Cloudy (Clear); Urine Urobilinogen Normal (Normal)
[2019-11-27 14:22] LABS: Bacteria 4+ /hpf (None Seen); Red Blood Cells-Urine 0 SEEN /hpf (0-5); Squamous Epithelial Cells - UA 0-5 SEEN /hpf (5-10); White Blood Cells 5-10 SEEN /hpf (0-5)
--- NOTE | 2019-11-27 15:27 | ED.RN ---
call pharmacy for atmichelle
[2019-11-27] MEDS: Ceftriaxone 1 GM/50 ML BAG IV (15:37)
[2019-11-27 16:22] VITALS: BP 140/79; PULSE 89; RESP 18; TEMP 36.6; O2SAT 100
== END 2019-11-27 16:49 | disposition home or self-care (01) ==
PROVIDERS: Emergency Provider Emergency Medicine; PCP Family Medicine
DX: N39.0 Urinary tract infection, site not specified (principal); K57.30 Diverticulosis of large intestine without perforation or abscess without bleeding; I25.10 Atherosclerotic heart disease of native coronary artery without angina pectoris; I71.4 Abdominal aortic aneurysm, without rupture; G25.81 Restless legs syndrome; M81.0 Age-related osteoporosis without current pathological fracture; F17.200 Nicotine dependence, unspecified, uncomplicated; Z79.01 Long term (current) use of anticoagulants; Z79.899 Other long term (current) drug therapy; Z88.8 Allergy status to other drugs, medicaments and biological substances; Z88.6 Allergy status to analgesic agent; Z88.2 Allergy status to sulfonamides; Z88.1 Allergy status to other antibiotic agents; I25.2 Old myocardial infarction; Z86.711 Personal history of pulmonary embolism; Z86.718 Personal history of other venous thrombosis and embolism; Z90.710 Acquired absence of both cervix and uterus
CPT/HCPCS: 74176; 80053; 81001; 85025; 87086; 87088; 99285; J7030; P9612; A4216; J2405

== ENCOUNTER 2019-11-28 05:21 | Inpatient (IN) | payer MEDICARE, BC, SELFPAY ==
[2019-11-27 11:48] VITALS: BMI 27.1
[2019-11-28] VITALS (11 sets, daily range): BP systolic 93–132; BP diastolic 51–69; PULSE 60–80; RESP 16–20; TEMP 36.2–36.7; O2SAT 93–96; BMI 25.3; BMI 20.6; BMI 20.7
--- NOTE | 2019-11-28 06:00 | RAD_ITS ---
STUDY: X-RAY - RIGHT KNEE REASON FOR EXAM: Female, 78 years old. NKI -- C/O RT KNEE PAIN X 1 MONTH TECHNIQUE: 4 view(s) of the knee. COMPARISON: None. FINDINGS: Normal visualized distal femur. Normal visualized proximal tibia and fibula. Normal proximal tibiofibular articulation. Mild narrowing of the medial femorotibial compartment. Normal lateral femorotibial compartment. There is mild degenerative arthrosis of the patellofemoral articulation. There is a soft tissue prominence in the suprapatellar region suggesting a small volume joint effusion. The soft tissue structures are unremarkable. RAD/Knee 4 or More Views IMPRESSION: Mild degenerative changes, small amount of effusion. Electronically Signed: Adriana Sewell MD at 6:54 EDT , Service support ,
--- NOTE | 2019-11-28 06:00 | ED.DCSUM_ITS ---
History of Present Illness Chief Complaint: Lower Extremity Injury Informant: Patient Narrative: Presents to the emergency department via EMS. She stated she woke up approximately an hour ago with severe sharp pain in her distal right thigh through her right knee into her right proximal ying. She had no injury to this. It was continuous. It is let up significantly. No home treatment. Came in for further evaluation. She stated she had a mechanical fall a month ago and sometimes gets pain in her right leg. She was seen in the emergency department yesterday for right-sided flank pain radiating into her groin. She had a CT abdomen pelvis that showed a stable AAA. She was diagnosed with a urinary tract infection. No fractures to her pelvis noted. Patient had nausea secondary to pain and one episode of emesis. She did receive antibiotics for her urine infection yesterday in the emergency department and was discharged with them. - Past Medical History (1) Hypoxia Status: Acute (2) AAA (abdominal aortic aneurysm) Status: Chronic (3) Age related osteoporosis Status: Chronic (4) COPD exacerbation Status: Chronic (5) Coronary arteriosclerosis Status: Chronic (6) DVT (deep venous thrombosis) Status: Chronic (7) Deep venous thrombosis Status: Chronic (8) Edentulism Status: Chronic (9) Groin pain Status: Chronic (10) H/O steroid therapy Status: Chronic (11) Myocardial infarction Status: Chronic (12) Pulmonary emboli Status: Chronic (13) Pulmonary embolism Status: Chronic (14) Recurrent cystitis Status: Chronic (15) Restless legs Status: Chronic (16) Rheumatoid arteritis Status: Chronic (17) Nausea Status: Resolved Past Medical History - Allergies and Home Meds Allergies/Adverse Reactions: Allergies bupropion [From Wellbutrin] Allergy (Verified 11/28/19 05:28) Unknown carbidopa [From Sinemet] Allergy (Verified 11/28/19 05:28) Unknown celecoxib [From Celebrex] Allergy (Verified 11/28/19 05:28) Unknown codeine Allergy (Verified 11/28/19 05:28) Unknown levodopa [From Sinemet] Allergy (Verified 11/28/19 05:28) Unknown nitrofurantoin [From Macrobid] Allergy (Verified 11/28/19 05:28) Unknown phenytoin [From Dilantin] Allergy (Verified 11/28/19 05:28) Unknown prochlorperazine [From Compazine] Allergy (Verified 11/28/19 05:28) Unknown Sulfa (Sulfonamide Antibiotics) Allergy (Verified 11/28/19 05:28) Unknown sulfamethoxazole [From Bactrim] Allergy (Verified 11/28/19 05:28) Unknown trimethoprim [From Bactrim] Allergy (Verified 11/28/19 05:28) Unknown Primary Care Physician: Boy Miller MD [Primary Care Provider] - Prior records reviewed: Yes Past Medical History: - - See problem list Surgical History: angioplasty, appendectomy, hysterectomy, - - Bladder sling Lives: With Family Smoking Status: Current some day smoker Alcohol: None Drugs: None - Family History Maternal Family History: Reports: Cancer Paternal Family History: Reports: Heart Disease Review of Systems General: Denies: Chills, Fever, Sweats Eyes: Denies: Visual changes - bilaterally, Diplopia ENT: Denies: Rhinorrhea, Sore throat Cardiovascular: Denies: Chest pain, Palpitations Respiratory: Denies: Dyspnea, Cough, Dyspnea on exertion Gastrointestinal: Denies: Abdominal pain, Nausea, Vomiting, Diarrhea, Melena, Hematochezia Genitourinary: Denies: Dysuria, Hematuria, Frequency Musculoskeletal: Reports: Extremity Pain. Denies: Back pain Skin: Denies: Rash, Wounds Neurological: Denies: Headache, Weakness, Numbness Physical Exam Vital Signs/Narrative: Vital Signs Temp Pulse Resp BP Pulse Ox 11/28/19 05:23 97.7 F L 67 16 118/69 93 General: Well nourished, Well developed, No Acute Distress Head: Normocephalic, Atraumatic Eyes: Perrl, EOMI ENT: Moist mucous membranes, No rhinorrhea Neck: Supple, Nontender Cardiovascular: Regular rate, Regular rhythm, No murmurs Respiratory: No distress, CTA bilaterally, Chest nontender Abdomen: Soft, Nontender, Nondistended, Normal bowel sounds Back: Nontender, Normal Inspection Extremities: Nontender, No edema Skin: Normal color, No rash Neurological: Alert, Oriented x3, Cranial nerves II-XII grossly intact, Normal Strength, Normal Sensation Psychological: Normal affect, Normal Mood Diagnostic/Tx/Re-eval - Medical Decision Making Patient given a dose of morphine and Zofran. X-ray of the right knee obtained. Lab work reviewed from prior visit shows urinary tract infection with no other significant abnormalities. Patient's x-ray shows no significant arthritis. Very small effusion. Patient was unsuccessful with ambulation due to pain in this area. At this time I discussed with the hospitalist and she will be admitted for inability ambulate with intractable right lower extremity pain ED Disposition - Plan for ED Patient: Disposition: Acute Care [facility], [place] Diagnosis: Inability to ambulate due to knee
[2019-11-28] MEDS: Ondansetron 4 MG/2 ML Vial IV (06:17)
[2019-11-28] MEDS: Morphine 2 MG/ML Syringe IV ×2 (06:18→09:16)
--- NOTE | 2019-11-28 07:11 | NURSING ---
DR MOCK FOR DR BOLAND
--- NOTE | 2019-11-28 07:11 | NURSING ---
MED SURG OBS RT KNEE PAIN, INABILITY TO AMBULATE [facility]FA[facility]
--- NOTE | 2019-11-28 09:00 | HP.PCM_ITS ---
Problem List (1) Coronary artery disease Status: Chronic Comment: Status post stents x3. (2) AAA (abdominal aortic aneurysm) Status: Chronic (3) DVT (deep venous thrombosis) Status: Chronic (4) Restless legs Status: Chronic (5) Pulmonary embolism Status: Chronic History of Present Illness Date of Admission: 11/28/19 Chief Complaint: Right knee pain, right low flank pain. The patient is a 78 year old F with past medical history as mentioned above presented to the emergency room because of right knee pain. Initially when I asked the patient about her main presenting complaint, she started complaining cough right flank pain. 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 She woke up from sleep around 5 AM this morning complaining of right knee pain, dull aching pain, sometimes becomes sharp, 10 out of 10 in severity, not radiating, aggravated by standing, no significant relief with rest and without associated symptoms. She denied recent fall or trauma. She did mention that she fell a month ago. Her other complaint is the right low flank pain which has been going on for almost a month, dull aching pain, 8 out of 10 in severity, goes down to the right groin region, associated with dysuria and nausea and without aggravating or relieving factors. She denies fever or chills. Yesterday, she came to the emergency department for this right flank pain, found to have UTI and she was discharged on Keflex and fluconazole. She had CT scan abdomen and pelvis without contrast that was done yesterday and revealed nonspecific bilateral perinephric stranding and sigmoid diverticulosis. Today in the emergency room, her vital signs are stable, was afebrile. Routine blood work from yesterday reviewed and was unremarkable. Urinalysis that was done yesterday revealed cloudy urine, p ositive for nitrite, there was 100 leukocyte esterase, 5-10 WBCs and 4+ bacteria. Urine culture was sent yesterday and it is pending. X-ray of the right knee performed today and revealed mild degenerative changes and small right knee effusion. She is being admitted for acute cystitis with probable acute pyelonephritis, intractable right knee pain, debility and difficulty ambulating. Past Medical History Past Medical History (Chronic Problems): Chronic Problems Coronary artery disease (Chronic) Status post stents x3. AAA (abdominal aortic aneurysm) (Chronic) DVT (deep venous thrombosis) (Chronic) Restless legs (Chronic) Recurrent cystitis (Chronic) Pulmonary embolism (Chronic) Age related osteoporosis (Chronic) Myocardial infarction (Chronic) Deep venous thrombosis (Chronic) Rheumatoid arteritis (Chronic) Allergies bupropion [From Wellbutrin] Allergy (Verified 11/28/19 05:28) Unknown carbidopa [From Sinemet] Allergy (Verified 11/28/19 05:28) Unknown celecoxib [From Celebrex] Allergy (Verified 11/28/19 05:28) Unknown codeine Allergy (Verified 11/28/19 05:28) Unknown levodopa [From Sinemet] Allergy (Verified 11/28/19 05:28) Unknown nitrofurantoin [From Macrobid] Allergy (Verified 11/28/19 05:28) Unknown phenytoin [From Dilantin] Allergy (Verified 11/28/19 05:28) Unknown prochlorperazine [From Compazine] Allergy (Verified 11/28/19 05:28) Unknown Sulfa (Sulfonamide Antibiotics) Allergy (Verified 11/28/19 05:28) Unknown sulfamethoxazole [From Bactrim] Allergy (Verified 11/28/19 05:28) Unknown trimethoprim [From Bactrim] Allergy (Verified 11/28/19 05:28) Unknown Home Medications: Ambulatory Orders Medication Instructions Recorded Lisinopril [Zestril] 5 mg PO BID 08/17/16 Metoprolol Tartrate [Lopressor 25 mg PO DAILY 08/17/16 (beta bladimir)] Pravastatin [Pravachol] 40 mg PO DAILY 08/17/16 Levothyroxine [Synthroid] 50 mcg PO DAILY 07/12/18 Omeprazole 40 mg PO DAILY 07/12/18 Ropinirole HCl [Requip] 0.25 mg PO QHS 07/12/18 proMETHazine tablet [Phenergan 25 mg PO Q6H PRN PRN 07/12/18 tablet] Acetaminophen [Tylenol Tablet] 650 mg PO Q6H PRN PRN tablet 07/25/18 Albuterol IH (ProAir) [Proair Hfa] 2 puff INHALATION Q4H PRN PRN 10/18/18 Apixaban [Eliquis] 5 mg PO BID 10/18/18 Clonazepam [Klonopin] 1.5 mg PO HS PRN 10/18/18 Oxycodone HCl/Acetaminophen 1 each PO Q6H PRN 10/18/18 [Percocet 5-325 mg Tablet] Cephalexin [Keflex] 500 mg PO TID #21 cap 11/27/19 Fluconazole 1 tab PO X1 #1 tab 11/27/19 Surgical History: angioplasty, appendectomy, hysterectomy, - - Bladder sling Psychiatric History: Anxiety Lives: With Family Smoking Status: Current every day smoker Tobacco Use: Cigarettes Alcohol: None Drugs: None - *Family History Maternal History Items: Cancer Paternal History Items: Heart Disease Review of Systems Constitutional: Reports: Weakness. Denies: Anorexia, Chills, Fever Eyes: Denies: Blurred vision, Double vision, Drainage, Redness HEENT: Denies: Difficulty Hearing, Ear Pain, Eye Pain, Nasal Congestion, Sore Throat Cardiovascular: Denies: Chest Pain, Chest Pressure, Chest Tightness, Edema, Heaviness, Palpitations, Syncope Respiratory: Denies: Cough, Hemoptysis, Pleuritic Pain, Shortness of Breath, Sputum production, Wheezing Gastrointestinal: Reports: Abdominal Pain. Denies: Constipation, Diarrhea, Nausea, Vomiting Genitourinary: Reports: Dysuria. Denies: Frequency, Hematuria Musculoskeletal: Reports: Joint Pain. Denies: Arm Pain, Back Pain Skin: Denies: Dryness, Rash Neurological: Denies: Balance problems, Blurred vision, Double vision, Slurred speech, Confusion, Headaches, Incoordination, Numbness Psychiatric: Reports: Anxiety. Denies: Depression Endocrine: Denies: Change in Body Habitus, Polydipsia, Polyuria VTE Information - Inpt Only VTE Present on Admission: No VTE Mechan Device Prophylaxis: None VTE Pharm Prophylaxis ordered?: No - Physical Exam Vitals/I&O's: Vital Signs Temp Pulse Resp BP Pulse Ox 97.3 F L 61 18 93/51 L 94 11/28/19 08:41 11/28/19 08:41 11/28/19 08:41 11/28/19 08:41 11/28/19 08:41 Oxygen Delivery Method Room Air Weight: 142 lb 10.225 oz Body Mass Index (BMI) 20.6 General: Alert, Oriented x3, Cooperative, No apparent distress HEENT: Atraumatic, PERRLA, EOMI, Normocephalic Oral: Moist Mucosa, No Gingival or Mucosal Lesions/ Ulcerations Neck: Supple, No JVD, Negative Carotid Bruits, Trachea Midline, Thyroid Normal Size and Texture Lungs: Clear to auscultation, Normal air movement, No rhonchi, No wheeze, No rales, Diminished Cardiovascular: Regular rate, Regular Rhythm, Normal S1, Normal S2, PMI Normal Abdomen: Bowel Sounds Present, Soft, Non Tender, Non-Distended, No Hepato- splenomegaly, - Extremities: No clubbing, No cyanosis, No edema Skin: No rashes, No breakdown Lymphatic: No Cervical, Supraclavicular, or Inguinal Adenopathy Neurological: Cranial nerves II-XII grossly intact, Motor Exam 5/5 strength throughout Psych/Mental Status: Normal Affect, Appropriate, Alert and oriented to time, place, person, mood and affect Clinical Impression(s) from Imaging Studies Knee X-Ray 11/28/19 06:00 IMPRESSION: Mild degenerative changes, small amount of effusion. Electronically Signed: Adriana Sewell MD at 6:54 EDT , Service support , CT/Abdomen/Pelvis without Cont IMPRESSION: Nonspecific bilateral perinephric stranding. Sigmoid diverticulosis. Stable aneurysmal dilatation of the distal aorta. Electronically Signed: Lavelle Sorenson at 13:22 EDT , Service support , Current Medications Acetaminophen (Tylenol) 650 mg PO Q6H PRN PRN PRN Reason: Pain Score 1-10/Temp > 100.7 F Apixaban (Eliquis) 5 mg PO BID FELIPE Clonazepam (Klonopin) 1.5 mg PO HS PRN PRN Reason: ANXIETY Sodium Chloride () 1,000 mls @ 75 mls/hr IV .[id number] FELIPE Stop: 11/28/19 21:28 Sodium Chloride () 250 mls @ 15 mls/hr IV .[id number] PRN PRN Reason: Saline Flush Sodium Chloride () 250 mls @ 15 mls/hr IV .[id number] PRN PRN Reason: Additional IVPB Infusion Ceftriaxone Sodium 2 gm/ (Sodium Chloride) 50 mls @ 100 mls/hr IV Q24 [facility] Levothyroxine Sodium (Synthroid) 50 mcg PO DAILY FELIPE Lisinopril (Zestril) 5 mg PO BID [facility] Metoprolol Tartrate (Lopressor (Beta Bladimir)) 25 mg PO DAILY [facility] Morphine Sulfate () 1 - 2 mg IV Q3H PRN PRN PRN Reason: Pain Score 6-10/10 Non-Formulary Medication (Omeprazole) 40 mg PO DAILY [facility] Non-Formulary Medication (Ropinirole Hcl [Requip]) 0.25 mg PO QHS FELIPE Ondansetron HCl (Zofran) 4 mg IV Q8H PRN PRN PRN Reason: NAUSEA/VOMITING Oxycodone HCl (Oxyir) 5 mg PO Q4H PRN PRN PRN Reason: Pain Score 4-5/10 Pravastatin Sodium (Pravachol) 40 mg PO DAILY [facility] Senna/Docusate Sodium (Senokot-S, Alba-Colace) 2 tablet PO BID PRN PRN PRN Reason: Constipation Sodium Chloride () 2 - 6 ml IV UD PRN PRN Reason: Pediatric Saline Flush Zolpidem Tartrate (Ambien (Generic)) 5 mg PO QHS PRN PRN PRN Reason: INSOMNIA Assessment/Plan This is a 78 years old female patient presented to the emergency room because of intractable right knee pain and also complaint of right low flank pain in context of recent diagnosis of acute cystitis and she is being admitted for d ebility and difficulty ambulating due to a right knee pain as well as probable acute pyelonephritis. #1 recent acute cystitis/probable acute pyelonephritis: This is based on her symptoms of right flank pain, urinalysis that was done yesterday as well as CT scan abdomen and pelvis without contrast that was done yesterday as well. Patient was started on Keflex yesterday. She is afebrile, no leukocytosis, no evidence of sepsis or sepsis. Urine culture sent yesterday and it is pending. Plan: Admit to [facility] floor, IV fluids, IV morphine PRN, start IV Rocephin 2 g every 24 hours, CBC and BMP tomorrow morning, PT OT evaluation and treatment. #2 intractable right knee pain: It is due to right knee osteoarthritis. X-ray reviewed, no acute fractures, does show small effusion. Plan: IV morphine PRN for pain, OxyIR PRN for pain, Tylenol PRN, PT OT evaluation and treatment. #3 difficulty ambulating/debility: Due to right knee pain. Patient lives at home with her son. She thinks if her pain improves, she can go back home. Plan for PT OT evaluation and treatment, placement to halfway facility still an option. #4 CAD status post stents: Stable, no complaints. Continue statins and metoprolol as well as lisinopril. #5 history of PE/DVT: Continue Eliquis, check INR. #6 hypothyroidism: Continue levothyroxine. #7 abdominal aortic aneurysm: Stable on CT scan abdomen that was done yesterday. #8 restless leg syndrome/anxiety: Continue Requip and Klonopin. #9 DVT prophylaxis: Continue Eliquis. This note was generated with [employer] dictation software. It may contain incorrect words, spelling, and punctuation that were not noted in checking the note before signing. Inpatient E&M: 89151 Init Hosp L2
[2019-11-28] MEDS: 0.9% Normal Saline 1,000 ML 75 ML IV (09:14)
[2019-11-28] MEDS: APIXABAN 5 MG TABLET PO ×2 (09:15→20:28)
[2019-11-28] MEDS: 0.9% Saline Lock 10 ML Syringe IV (09:15)
[2019-11-28] MEDS: Pantoprazole Sodium 40 MG Tablet PO (09:15)
[2019-11-28] MEDS: Lisinopril 5 MG Tablet PO ×2 (11:13→20:28)
[2019-11-28] MEDS: oxyCODONE 5 MG Tablet PO ×3 (11:15→20:31)
[2019-11-28] MEDS: Menthol/Lanolin/Calamine/Znox 113 GM Tube 1 APPLIC TOPICAL ×2 (13:52→20:28)
[2019-11-28] MEDS: clonazePAM 0.5 MG Tablet 1.5 MG PO (20:28)
[2019-11-28] MEDS: Pravastatin 40 MG Tablet PO (20:28)
[2019-11-28] MEDS: Pramipexole Di-HCl 0.125 MG Tablet PO (20:28)
[2019-11-29 02:00] VITALS: BP 150/94; PULSE 84; RESP 18; TEMP 36.4; O2SAT 94
[2019-11-29] MEDS: oxyCODONE 5 MG Tablet PO ×3 (03:36→13:26)
[2019-11-29] MEDS: Ondansetron 4 MG/2 ML Vial IV (03:45)
[2019-11-29 05:20] LABS: Absolute Neutrophil Count 3.5 X10^3/uL (2.0-7.7); Basophil# 0.05 X10^3/uL; Basophil% 0.8 % (0-1); Eosinophil# 0.39 X10^3/uL; Eosinophils% 6.2 % (0-5); Hematocrit 38.3 % (37-47); Hemoglobin 11.9 g/dL (12.0-15.0); Lymphocyte % 28.6 % (19-41); Mean Corp Hgb Conc 31.1 g/dL (32-36); Mean Corpuscular Hgb 29.2 pg (27.0-32.0); Mean Corpuscular Volume 94.1 fL (81-99); Mean Platelet Vol. 10.1 fl (6.2-12.0); Monocyte# 0.54 X10^3/uL; Monocyte% 8.6 % (0-10); NRBC Flagged by Analyzer 0 % (0-5); Neutrophil # 3.51 X10^3/uL (2.7-7.7); Neutrophil % 55.6 % (47-70); Platelet Count 180 K/mm3 (150-450); RBC Distribution Width CV 12.4 % (11.6-14.6); RBC Distribution Width SD 42.9 fl (35.1-43.9); Red Blood Count 4.07 M/mm3 (4.2-5.4); White Blood Count 6.3 K/mm3 (4.4-11.0)
[2019-11-29 05:29] LABS: International Normalized Ratio 1.1; Prothrombin Time (Protime)PT. 14.4 SECONDS (11.7-14.9)
[2019-11-29 05:38] LABS: Anion Gap 3 (5-15); BUN 24 mg/dL (7-18); Calcium,Total 8.5 mg/dL (8.5-10.1); Chloride 111 mmol/L (98-107); Creatinine, Serum 0.96 mg/dL (0.55-1.02); EST Glomerular Filtration Rate 60 mL/min (>60); Est Glom Filt Rate - Afr Amer 72 mL/min (>60); Estimated Creatinine Clearance 50.13 ml/min; Glucose 97 mg/dL (74-106); Potassium 4.3 mmol/L (3.5-5.1); Sodium Level 141 mmol/L (136-145)
[2019-11-29] MEDS: Levothyroxine 50 MCG Tablet PO (06:15)
[2019-11-29 07:29] VITALS: O2SAT 94
[2019-11-29 07:44] VITALS: BP 128/64; PULSE 80; RESP 18; TEMP 36.7; O2SAT 93
[2019-11-29 07:45] VITALS: PULSE 80
[2019-11-29] MEDS: Metoprolol Tartrate 25 MG Tablet PO (07:45)
[2019-11-29] MEDS: Lisinopril 5 MG Tablet PO (07:46)
[2019-11-29] MEDS: APIXABAN 5 MG TABLET PO (07:46)
[2019-11-29] MEDS: Pantoprazole Sodium 40 MG Tablet PO (07:46)
[2019-11-29] MEDS: Menthol/Lanolin/Calamine/Znox 113 GM Tube 1 APPLIC TOPICAL (07:47)
[2019-11-29] MEDS: 0.9% Saline Lock 10 ML Syringe IV (09:51)
[2019-11-29] MEDS: Ketorolac 15 MG/ML Vial IV (09:52)
--- NOTE | 2019-11-29 10:50 | CASEMGMT ---
[facility] Face to Face with patient for initial transition planning/care coordination assessment. RN CM introduced self and role at [facility]. Patient lying in bed, alert and oriented. Patient willing to participate in assessment and is able to answer all questions appropriately. Care providers, pharmacy, and demographics verified. Patient wishes to discharge home, denies need for home health at this time. Patient states she has no further needs or concerns at this time. CM to follow for discharge planning needs that may arise. PCP: Paul Specialists: none Preferred Pharmacy: [facility] in [place] Insurance: [employer] Prescription Benefit: yes Living Will/HPOA: yes, daughter Kizzy Talamantes LNOK: son, daughter Living Arrangements: Patient lives with son and DIL in 2 story home with railing to second floor. Patient states she is able to ambulate stairs and is independent at home. Transportation: family DME/HHC: Patient state she has shower chair, cane, walker, wheelchair, and nebulizer at home. Patient has had [facility] in the past but is denying need at this time. Disposition Plan: Patient to discharge home with family support and follow-up plans in place. Sepideh CHRISTOPHER, RN, CM
--- NOTE | 2019-11-29 12:57 | PCM.DC ---
- Discharge Diagnoses Current Active Problems: Current Active and Chronic Problems Coronary artery disease (Chronic) Status post stents x3. You will use the following diet at home:: Cardiac Your food should be the consistency of: Regular Discharge Activity: Return to Normal Activity Weight Bearing Status: Weight bearing as tolerated Call your doctor if you observe: Fever of 101 or Higher, Shortness of breath, Dizziness, Fainting spells, Chest pain, Increased palpitations (irregular heartbeat), Uncontrolled pain Instructions: Osteoarthritis: Common Sites Additional Instructions: Please keep taking Keflex and finish it that was ordered by the emergency room physician the day before you admitted. Use Tylenol PRN for pain on a scale of 1-5. Use Percocet for pain scale of 6-10. Allergies/Adverse Reactions: Allergies bupropion [From Wellbutrin] Allergy (Verified 11/28/19 05:28) Unknown carbidopa [From Sinemet] Allergy (Verified 11/28/19 05:28) Unknown celecoxib [From Celebrex] Allergy (Verified 11/29/19 09:29) Nausea codeine Allergy (Verified 11/28/19 05:28) Unknown levodopa [From Sinemet] Allergy (Verified 11/28/19 05:28) Unknown nitrofurantoin [From Macrobid] Allergy (Verified 11/28/19 05:28) Unknown phenytoin [From Dilantin] Allergy (Verified 11/28/19 05:28) Unknown prochlorperazine [From Compazine] Allergy (Verified 11/28/19 05:28) Unknown Sulfa (Sulfonamide Antibiotics) Allergy (Verified 11/28/19 05:28) Unknown sulfamethoxazole [From Bactrim] Allergy (Verified 11/28/19 05:28) Unknown trimethoprim [From Bactrim] Allergy (Verified 11/28/19 05:28) Unknown Medications to take at Discharge Lisinopril [Zestril] 5 mg PO BID 08/17/16 Metoprolol Tartrate [Lopressor (beta karishma)] 25 mg PO DAILY 08/17/16 Pravastatin [Pravachol] 40 mg PO DAILY 08/17/16 Levothyroxine [Synthroid] 50 mcg PO DAILY 07/12/18 Omeprazole 40 mg PO DAILY 07/12/18 Ropinirole HCl [Requip] 0.25 mg PO QHS 10/30/18 proMETHazine tablet [Phenergan tablet] 25 mg PO Q6H PRN PRN 07/12/18 Acetaminophen [Tylenol Tablet] 650 mg PO Q6H PRN PRN tablet 07/25/18 Albuterol IH (ProAir) [Proair Hfa] 2 puff INHALATION Q4H PRN PRN 10/18/18 Apixaban [Eliquis] 5 mg PO BID 10/18/18 Clonazepam [Klonopin] 1.5 mg PO HS PRN 10/18/18 Cephalexin [Keflex] 500 mg PO TID #21 cap 11/27/19 Fluconazole 1 tab PO X1 #1 tab 11/27/19 Oxycodone HCl/Acetaminophen [Percocet 5-325 mg Tablet] 1 each PO Q8H PRN PRN 5 Days #14 tablet 11/29/19 The following prescriptions were given: Oxycodone HCl/Acetaminophen [Percocet 5-325 mg Tablet] 1 each PO Q8H PRN PRN 5 Days #14 tablet PRN Reason: Pain Score 6-10/10 Transmission Status: Received by [facility] Primary Care Physician: Boy Miller MD [Primary Care Provider] - Please follow up with your Primary Care Physician in: 1 week. Test Results: Test results from this visit will be discussed in further detail at your follow-up appointment, if applicable.
[2019-11-29 13:27] VITALS: BP 119/69; PULSE 69; RESP 18; TEMP 36.5; O2SAT 93
--- NOTE | 2019-11-29 13:27 | DS.PCM_ITS ---
Discharge Date and Diagnosis Date of Admission: 11/28/19 Date of Discharge: 11/29/19 - Primary Discharge Diagnosis #1 E. coli acute cystitis/probable pyelonephritis. #2 intractable right knee pain due to right knee osteoarthritis. #3 debility/difficulty ambulating. - Secondary Discharge Diagnosis Chronic Problems Coronary artery disease (Chronic) Status post stents x3. AAA (abdominal aortic aneurysm) (Chronic) DVT (deep venous thrombosis) (Chronic) Restless legs (Chronic) Recurrent cystitis (Chronic) Pulmonary embolism (Chronic) Age related osteoporosis (Chronic) Myocardial infarction (Chronic) Deep venous thrombosis (Chronic) Rheumatoid arteritis (Chronic) Hospital Course and Treatment Imaging Results: Clinical Impression(s) from Imaging Studies Knee X-Ray 11/28/19 06:00 IMPRESSION: Mild degenerative changes, small amount of effusion. Electronically Signed: Adriana Sewell MD at 6:54 EDT , Service support , Operations: None Procedures: None Summary of Care Provided: Patient seen and examined on the day of discharge and appeared to be to be stable to be discharged home. She continued to complain of right knee pain although it has been improving but I suspected drug-seeking behavior. Right flank pain improved. She has no fever or chills. Other vital signs are stable. The patient is a 78 year old F presented to the emergency room because of intractable right knee pain and also she complained of right flank pain in c ontext of recent diagnosis of acute cystitis. X-ray of the right knee done and revealed degenerative changes and small joint effusion which is probably due to osteoarthritis. Her routine blood work was unremarkable. Patient was treated with IV morphine, OxyIR, IV Rocephin and IV antiemetics. Patient's daughter stated that patient likes to Take pain medications. During this hospital stay, patient exhibited drug-seeking behavior. Her symptoms dramatically improved although she continued to complain of right knee pain but started to be able to ambulate. Urine culture revealed E. coli that was pansensitive. 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 She was offered to go home with home health but she declined. Patient discharged home in a stable condition, discharged on Keflex that was given to her 1 day before admission for acute cystitis, discharged on Percocet PRN for pain, recommended to use Tylenol PRN for pain from 1-5 and to use Percocet for pain from 6-10 scale, recommended follow-up with PCP in 1 week. - Physical Exam Vitals/I&O's: Vital Signs Temp Pulse Resp BP Pulse Ox 98.1 F 80 18 128/64 H 93 11/29/19 07:44 11/29/19 07:45 11/29/19 07:44 11/29/19 07:44 11/29/19 07:44 Oxygen Flow Rate (L/min) 2 Oxygen Delivery Method Room Air Weight: 142 lb 10.225 oz Body Mass Index (BMI) 20.6 Intake and Output for Last 24 Hours 11/27/19 11/28/19 11/29/19 23:59 23:59 23:59 Intake Total 1050 / 1050 530 / 530 Output Total 700 / 700 Balance 1050 / 550 -170 / -170 General: Alert, Oriented x3, Cooperative, No apparent distress HEENT: Atraumatic, PERRLA, EOMI, Normocephalic Oral: Moist Mucosa, No Gingival or Mucosal Lesions/ Ulcerations Neck: Supple, No JVD, Negative Carotid Bruits, Trachea Midline, Thyroid Normal Size and Texture Lungs: Normal air movement, No rhonchi, No wheeze, No rales, Diminished Cardiovascular: Regular rate, Regular Rhythm, Normal S1, Normal S2, PMI Normal Abdomen: Bowel Sounds Present, Soft, Non Tender, Non-Distended, No Hepato- splenomegaly Extremities: No clubbing, No cyanosis, No edema Skin: No rashes, No breakdown Lymphatic: No Cervical, Supraclavicular, or Inguinal Adenopathy Neurological: Cranial nerves II-XII grossly intact, Neuro grossly intact Psych/Mental Status: Normal Affect, Appropriate Laboratory Results 11/29/19 05:04: WBC 6.3, RBC 4.07 L, Hgb 11.9 L, Hct 38.3, MCV 94.1, MCH 29.2, MCHC 31.1 L, RDW Std Deviation 42.9, RDW Coeff of Jose M 12.4, Plt Count 180, MPV 10.1, Immature Gran % (Auto) 0.200, Neut % (Auto) 55.6, Lymph % (Auto) 28.6, [place] % (Auto) 8.6, Eos % (Auto) 6.2 H, Baso % (Auto) 0.8, Absolute Neuts (auto) 3.5, Absolute Lymphs (auto) 1.80, Nucleated RBC % 0 11/29/19 05:04: PT 14.4, INR 1.1 11/29/19 05:04: Sodium 141, Potassium 4.3, Chloride 111 H, Carbon Dioxide 27.0, Anion Gap 3 L, BUN 24 H, Creatinine 0.96, Estim Creat Clear Calc 50.13, Est GFR (MDRD) Af Amer 72, Est GFR (MDRD) Non-Af 60, BUN/Creatinine Ratio 25.0 H, Glucose 97, Calcium 8.5 Current Medications Acetaminophen (Tylenol) 650 mg PO Q6H PRN PRN PRN Reason: Pain Score 1-10/Temp > 100.7 F Albuterol Sulfate (Ventolin Aerosols) 2.5 mg INHALATION Q2H PRN PRN PRN Reason: SOB &/OR WHEEZING Apixaban (Eliquis) 5 mg PO BID COUNTS INCLUDE 234 BEDS AT THE [facility] Last Admin: 11/29/19 07:46 Dose: 5 mg Documented by: Calamine/Phenol (Calmoseptine Ointment) 1 applic TOPICAL BID COUNTS INCLUDE 234 BEDS AT THE [facility]; Protocol Last Admin: 11/29/19 07:47 Dose: 1 applicatio Documented by: Clonazepam (Klonopin) 1.5 mg PO HS PRN PRN Reason: ANXIETY Last Admin: 11/28/19 20:28 Dose: 1.5 mg Documented by: Sodium Chloride () 250 mls @ 15 mls/hr IV .[id number] PRN PRN Reason: Saline Flush Sodium Chloride () 250 mls @ 15 mls/hr IV .[id number] PRN PRN Reason: Additional IVPB Infusion Ceftriaxone Sodium 2 gm/ (Sodium Chloride) 50 mls @ 100 mls/hr IV Q24 COUNTS INCLUDE 234 BEDS AT THE [facility] Last Infusion: 11/29/19 10:21 Dose: Infused Documented by: Levothyroxine Sodium (Synthroid) 50 mcg PO DAILY@0600 COUNTS INCLUDE 234 BEDS AT THE [facility] Last Admin: 11/29/19 06:15 Dose: 50 mcg Documented by: Lisinopril (Zestril) 5 mg PO BID COUNTS INCLUDE 234 BEDS AT THE [facility] Last Admin: 11/29/19 07:46 Dose: 5 mg Documented by: Metoprolol Tartrate (Lopressor (Beta Bladimir)) 25 mg PO DAILY COUNTS INCLUDE 234 BEDS AT THE [facility] Last Admin: 11/29/19 07:45 Dose: 25 mg Documented by: Morphine Sulfate () 1 - 2 mg IV Q3H PRN PRN PRN Reason: Pain Score 6-10/10 Last Admin: 11/28/19 09:16 Dose: 2 mg Documented by: Ondansetron HCl (Zofran) 4 mg IV Q8H PRN PRN PRN Reason: NAUSEA/VOMITING Last Admin: 11/29/19 03:45 Dose: 4 mg Documented by: Oxycodone HCl (Oxyir) 5 mg PO Q4H PRN PRN PRN Reason: Pain Score 4-5/10 Last Admin: 11/29/19 13:26 Dose: 5 mg Documented by: Pantoprazole Sodium (Protonix) 40 mg PO DAILY COUNTS INCLUDE 234 BEDS AT THE [facility] Last Admin: 11/29/19 07:46 Dose: 40 mg Documented by: Pramipexole Dihydrochloride (Mirapex) 0.125 mg PO QHS COUNTS INCLUDE 234 BEDS AT THE [facility] Last Admin: 11/28/19 20:28 Dose: 0.125 mg Documented by: Pravastatin Sodium (Pravachol) 40 mg PO QHS COUNTS INCLUDE 234 BEDS AT THE [facility] Last Admin: 11/28/19 20:28 Dose: 40 mg Documented by: Senna/Docusate Sodium (Senokot-S, Alba-Colace) 2 tablet PO BID PRN PRN PRN Reason: Constipation Sodium Chloride () 2 - 6 ml IV UD PRN PRN Reason: Pediatric Saline Flush Last Admin: 11/29/19 09:51 Dose: 5 ml Documented by: Zolpidem Tartrate (Ambien (Generic)) 5 mg PO QHS PRN PRN PRN Reason: INSOMNIA Discharge Activity: Return to Normal Activity Weight Bearing Status: Weight bearing as tolerated Call your doctor if you observe: Fever of 101 or Higher, Shortness of breath, Dizziness, Fainting spells, Chest pain, Increased palpitations (irregular heartbeat), Uncontrolled pain Home Medications: Medications to take at Discharge Lisinopril [Zestril] 5 mg PO BID 08/17/16 Metoprolol Tartrate [Lopressor (beta bladimir)] 25 mg PO DAILY 08/17/16 Pravastatin [Pravachol] 40 mg PO DAILY 08/17/16 Levothyroxine [Synthroid] 50 mcg PO DAILY 07/12/18 Omeprazole 40 mg PO DAILY 07/12/18 Ropinirole HCl [Requip] 0.25 mg PO QHS 07/12/18 proMETHazine tablet [Phenergan tablet] 25 mg PO Q6H PRN PRN 07/12/18 Acetaminophen [Tylenol Tablet] 650 mg PO Q6H PRN PRN tablet 07/25/18 Albuterol IH (ProAir) [Proair Hfa] 2 puff INHALATION Q4H PRN PRN 10/18/18 Apixaban [Eliquis] 5 mg PO BID 10/18/18 Clonazepam [Klonopin] 1.5 mg PO HS PRN 10/18/18 Cephalexin [Keflex] 500 mg PO TID #21 cap 11/27/19 Fluconazole 1 tab PO X1 #1 tab 11/27/19 Oxycodone HCl/Acetaminophen [Percocet 5-325 mg Tablet] 1 ea PO Q8H PRN PRN 5 Days #14 tab 11/29/19 Following Prescrptions Were Given to Patient: Oxycodone HCl/Acetaminophen [Percocet 5-325 mg Tablet] 1 ea PO Q8H PRN PRN 5 Days #14 tab PRN Reason: Pain Score 6-10/10 [facility] Primary Care Physician: Boy Miller MD [Primary Care Provider] - Please follow up with your Primary Care Physician in: 1 week. Patient Instructions: Osteoarthritis: Common Sites Disposition: Home Minutes spent on discharge:: 26 Patient Condition:: Stable Medical Necessity - Tobacco Use Smoking Status: Current every day smoker Tobacco Use: Cigarettes Meaningful Use Info Meaningful Use Diagnoses (Choose all that apply): None applicable Inpatient E&M: 32729 [facility]
--- NOTE | 2019-11-29 13:56 | CASEMGMT ---
CHRIST ASHLEY updated that patient would benefit from HHC per therapy. CHRIST ASHLEY in to discuss HHC at discharge. Patient states she does not feel she needs it at this time. CHRIST ASHLEY provided HHC and [facility] HHC brochure should patient reconsider once going home.
--- NOTE | 2019-11-30 14:33 | CASEMGMT ---
CHRIST ASHLEY Discharge Follow-up Phone Call: YOAV:Cristobal Strata:3 Call Date: 11/30/2019 Discharge Date: 11/29/2019 Time of Call: 1430 Duration: 5 min Admitting Diagnosis: Intractable right knee pain/difficulty ambulating CHRIST ASHLEY completed follow-up phone call after recent hospitalization. Patient states that he pain is doing better, just weak. Patient states she has no questions or concerns regarding discharge instructions. Patient states she had no issues filling prescriptions. Patient states she will PCP office for follow-up appt. Patient had no further needs or concerns at this time.
== END 2019-11-29 15:05 | disposition home or self-care (01) | DRG 690 ==
LOC: ED 06:58 → MS3 07:53
PROVIDERS: Admitting Provider Hospitalist; Emergency Provider Emergency Medicine; PCP Family Medicine; Visit Provider Hospitalist
DX: N30.00 Acute cystitis without hematuria (principal); N10 Acute pyelonephritis; B96.20 Unspecified Escherichia coli [E. coli] as the cause of diseases classified elsewhere; M17.11 Unilateral primary osteoarthritis, right knee; R53.81 Other malaise; R26.2 Difficulty in walking, not elsewhere classified; I25.10 Atherosclerotic heart disease of native coronary artery without angina pectoris; Z95.5 Presence of coronary angioplasty implant and graft; G25.81 Restless legs syndrome; M81.0 Age-related osteoporosis without current pathological fracture; I25.2 Old myocardial infarction; I71.4 Abdominal aortic aneurysm, without rupture; Z79.01 Long term (current) use of anticoagulants; F17.210 Nicotine dependence, cigarettes, uncomplicated; Z86.711 Personal history of pulmonary embolism; Z86.718 Personal history of other venous thrombosis and embolism; E03.9 Hypothyroidism, unspecified
CPT/HCPCS: 36415; 73564; 74176; 80048; 80053; 81001; 85025; 85610; 87086; 87088; 87186; 96361; 96365; 96375; 97116; 97162; 97166; 97530; 99251; 99285; J7030; P9612; A4216; G0463; J0696; J2405

== ENCOUNTER 2020-08-08 01:16 | Emergency (ER) | payer MEDICARE, BC, SELFPAY ==
[2019-11-28 08:10] VITALS: BMI 20.6
[2020-08-08] VITALS (8 sets, daily range): BP systolic 143–175; BP diastolic 96–99; PULSE 105–120; RESP 12–22; TEMP 37.1; O2SAT 88–95; BMI 26.8
--- NOTE | 2020-08-08 01:23 | EKG12_ITS ---
Test Reason : SOB Blood Pressure : / mmHG Vent. Rate : 114 BPM Atrial Rate : 114 BPM P-R Int : 144 ms QRS Dur : 068 ms QT Int : 328 ms P-R-T Axes : 066 048 005 degrees QTc Int : 452 ms Sinus tachycardia Otherwise normal ECG Confirmed by JEF VILLANUEVA, CHANTAL ([id number]), assignment desk editor CHRISTIANA MCDERMOTT ([id number]) on 08/09/2020 11:12:46 AM Referred By: LUCIA Confirmed By:CHANTAL FUCHS MD
[2020-08-08] MEDS: MethylPREDNISolone 125 MG/2 ML Vial IV (01:40)
[2020-08-08] MEDS: Albuterol 2.5 MG/3 ML VIAL.NEB. INHALATION ×3 (01:40)
[2020-08-08 01:58] LABS: Absolute Lymphocyte Count 2.26 X10^3/uL (0.83-4.51); Absolute Neutrophil Count 4.9 X10^3/uL (2.0-7.7); Basophil# 0.05 X10^3/uL; Basophil% 0.6 % (0-1); Eosinophil# 0.55 X10^3/uL; Eosinophils% 6.5 % (0-5); Hematocrit 39.3 % (37-47); Hemoglobin 12.5 g/dL (12.0-15.0); Lymphocyte # 2.26 X10^3/ul (4.0); Lymphocyte % 26.6 % (19-41); Mean Corp Hgb Conc 31.8 g/dL (32-36); Mean Corpuscular Hgb 29.8 pg (27.0-32.0); Mean Corpuscular Volume 93.8 fL (81-99); Mean Platelet Vol. 10.1 fl (6.2-12.0); Monocyte# 0.67 X10^3/uL; Monocyte% 7.9 % (0-10); NRBC Flagged by Analyzer 0 % (0-5); Neutrophil # 4.94 X10^3/uL (2.7-7.7); Neutrophil % 58.2 % (47-70); Platelet Count 190 K/mm3 (150-450); RBC Distribution Width CV 12.8 % (11.6-14.6); RBC Distribution Width SD 43.8 fl (35.1-43.9); Red Blood Count 4.19 M/mm3 (4.2-5.4); White Blood Count 8.5 K/mm3 (4.4-11.0)
[2020-08-08] MEDS: Ipratropium/Albuterol Sulfate 3 ML AMPUL.NEB INHALATION (02:05)
--- NOTE | 2020-08-08 02:15 | RAD_ITS ---
HISTORY: shortness of breath EXAM: XR Chest 1 View: COMPARISON: The summer FINDINGS: # of images incl. paperwork: 1 Lungs are clear. Heart is not enlarged. No acute osseous pathology perceived. Pulmonary vascularity is distinct. No effusions. RAD/Chest 1 View (Portable) IMPRESSION: No acute cardiopulmonary disease. at 0243 Reported and signed by: Chris Asencio MD Electronically Signed: Chris Asencio MD at 2:42 EST Tel , Service support ,
[2020-08-08 02:25] LABS: Anion Gap 6 (5-15); BUN 27 mg/dL (7-18); BUN/Creat Ratio 27.9 RATIO (10-20); Calcium,Total 9.2 mg/dL (8.5-10.1); Chloride 108 mmol/L (98-107); Creatinine, Serum 0.97 mg/dL (0.55-1.02); EST Glomerular Filtration Rate 59 mL/min (>60); Est Glom Filt Rate - Afr Amer 72 mL/min (>60); Estimated Creatinine Clearance 41.28 ml/min; Glucose 132 mg/dL (74-106); Potassium 4.5 mmol/L (3.5-5.1); Sodium Level 141 mmol/L (136-145)
--- NOTE | 2020-08-08 02:53 | ED.DCSUM_ITS ---
- ER Visit Summary Date of Service: 08/08/20 Chief Complaint: Shortness of breath, COPD History of Present Illness: The patient is a 79 F who has shortness of breath and COPD. She states that her symptoms got worse today. She states that she is always short of breath and tachycardic but got worse today. Is worse with exertion and better with rest and oxygen. She has as needed oxygen at home. She does not wear it all the time. She has had a slight cough is not productive of sputum. She does have some tightness in her chest which she believes is from her lungs. She is also in had rhinorrhea. No fevers. She does have albuterol inhalers and nebulizer at home she states that she did run out of her albuterol inhaler. She has no known Covid exposures. 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 HEENT exam unremarkable. Heart is tachycardic and regular rhythm without murmurs. Lungs have expiratory wheezes in the lower lungs bilaterally. Abdomen is soft and nontender. Extremities reveal no edema. Skin exam normal. Neurologic exam normal. Test Results: EKG is sinus rhythm with rate of 114. No ST changes. Laboratory studies are unremarkable except for chloride of 108 and glucose of 132. Chest x-ray interpreted by myself and radiologist shows chronic changes with nothing acute Emergency Department Course and Treatment: She was given Solu-Medrol and aerosol treatments. Upon reevaluation she was feeling improved. She did drop down to 88% at one point while awake. However, when I reevaluated the patient she was 96% on room air. She does have oxygen that she can wear at home. I will place her on Levaquin and prednisone for home. She states that she is having some yeast infection symptoms so I will give her Diflucan. I will give her Zofran ODT to help tolerate the antibiotics. I will also refill her albuterol inhaler. I feel the patient can be discharged home. Her oxygen saturations are fairly well on 2 L and she does have oxygen at home. She has no coronavirus type symptoms and her chest x-ray is not consistent with this. Patient will be discharged to home Treatment Plan: [] Disposition: Discharge Impression: COPD exacerbation This note was generated with [employer] software. It may contain incorrect words, spelling, and punctuation that were not noted in review of the chart prior to signing ED Disposition - Plan for ED Patient: Disposition: Home or Assisted Living Instructions: ED COPD Flare Prescriptions: Prednisone [Deltasone] 60 mg PO DAILY #12 tab Transmission Status: Pending to [facility] Levofloxacin [Levaquin] 750 mg PO DAILY #4 tab Transmission Status: Pending to [facility] Ondansetron [Zofran Odt] 8 mg PO Q8H PRN PRN #20 tab PRN Reason: Nausea Transmission Status: Pending to [facility] Referrals: Boy Miller MD [Primary Care Provider] -
[2020-08-08] MEDS: Fluconazole 100 MG Tablet 150 MG PO (03:32)
[2020-08-08] MEDS: levoFLOXacin 750 MG Tablet PO (03:32)
[2020-08-08] MEDS: Ondansetron ODT 4 MG Tablet 8 MG PO (03:35)
[2020-08-09 12:26] LABS: BNP,B-Type NATRIURETIC PEPTIDE 36.2 pg/mL (0-100)
== END 2020-08-08 05:57 | disposition home or self-care (01) ==
PROVIDERS: Emergency Provider Emergency Medicine; PCP Family Medicine
DX: J44.1 Chronic obstructive pulmonary disease with (acute) exacerbation (principal); B37.9 Candidiasis, unspecified; J34.89 Other specified disorders of nose and nasal sinuses; Z79.01 Long term (current) use of anticoagulants; Z79.899 Other long term (current) drug therapy; Z86.718 Personal history of other venous thrombosis and embolism; Z86.711 Personal history of pulmonary embolism
CPT/HCPCS: 71045; 80048; 83880; 84484; 85025; 93005; 94640; 96374; 99285; A4216

== ENCOUNTER 2020-12-26 19:31 | Emergency (ER) | payer MEDICARE, BC, SELFPAY ==
[2020-08-08 01:18] VITALS: BMI 26.8
[2020-12-26 19:33] VITALS: BP 156/75; PULSE 71; RESP 16; TEMP 36.7; O2SAT 95; BMI 40.8
--- NOTE | 2020-12-26 20:05 | CT_ITS ---
HISTORY: Abdominal pain -- IV PO Contrast TECHNIQUE: Helically acquired images were obtained of the abdomen and pelvis following the intravenous administration of 100 ML of Isovue-370 Iodinated contrast. 2D reformats. Gastrografin oral contrast was administered. A radiation dose optimization technique was used for this scan. COMPARISON: Of the patient's 0.1 previous radiologic exams this institution, the most recent CT scan the abdomen and pelvis is from November 27, 2019. CT scan of the abdomen and pelvis before that is from February 20, 2018. FINDINGS: # of images incl. paperwork: 483 LUNG BASES: There may be a central venous catheter terminating within the right atrial SVC junction. The thoracic aorta is severely diseased with atherosclerosis. Just above the diaphragmatic hiatus the outer and outer dimensions of the descending thoracic aorta aren't aneurysmally dilated to 3.[address] abdomen: Vertebral body height is preserved. Multilevel degenerative disc disease with vacuum disc phenomenon. Facet arthropathy. The gallbladder remains. Liver, spleen, pancreas, and adrenal glands, are normal. The left kidney is atrophic and scarred. This is not a new finding. The right kidney appears normal. The aorta is severely diseased with atherosclerosis. Below the level of the origin of the renal arteries there is a 4.1 x 3.9 cm infrarenal abdominal aortic aneurysm. Much of the aneurysm is filled with soft plaque with a normal caliber to the perfused lumen. The fat surrounding the left kidney remains prominent and thickened, but still fat.. CT pelvis: No ascites is present. The appendix is not identified, and may have been resected. The uterus is not identified, and likely has been resected. The bladder is normal. Diverticulosis is present. No evidence of diverticulitis. No evidence of bowel obstruction. CT/Abdomen/Pelvis WITH Contrast IMPRESSION: 4.1 x 3.9 cm infrarenal abdominal aortic aneurysm. This has increased from 3.8 x 3.7 cm on November 27, 2019. 3.4 x 3.7 cm distal thoracic aortic aneurysmal dilatation. Chronic scarring and atrophy to the left kidney with prominence of the left perirenal fat is unchanged since the February 20, 2018 previous study. Individualized dose optimization techniques were used for this CT. at 2230 Reported and signed by: Chris Asencio MD Electronically Signed: Chris Asencio MD at 22:38 EDT Tel , Service support ,
[2020-12-26] MEDS: Ondansetron 4 MG/2 ML Vial IV (20:35)
[2020-12-26] MEDS: Morphine 4 MG/ML Syringe IV (20:35)
[2020-12-26 20:46] LABS: Bacteria 0 SEEN /hpf (None Seen); Mucous, Urine 0 SEEN /hpf (<or=2+)
[2020-12-26 20:47] LABS: Absolute Lymphocyte Count 2.68 X10^3/uL (0.83-4.51); Absolute Neutrophil Count 5.6 X10^3/uL (2.0-7.7); Basophil# 0.06 X10^3/uL; Basophil% 0.6 % (0-1); Color, Urine Yellow (Yellow); Eosinophil# 0.54 X10^3/uL; Eosinophils% 5.5 % (0-5); Glucose, Dipstick Normal (Normal); Hematocrit 40.8 % (37-47); Hemoglobin 12.9 g/dL (12.0-15.0); Ketone-Dipstick Negative (Negative); Leukocyte Esterase-Dipstick 100 /ul (Negative); Lymphocyte # 2.68 X10^3/ul (0.83-4.51); Lymphocyte % 27.3 % (19-41); Mean Corp Hgb Conc 31.6 g/dL (32-36); Mean Corpuscular Hgb 29.2 pg (27.0-32.0); Mean Corpuscular Volume 92.3 fL (81-99); Mean Platelet Vol. 10.2 fl (6.2-12.0); Monocyte# 0.91 X10^3/uL; Monocyte% 9.3 % (0-10); NRBC Flagged by Analyzer 0 % (0-5); Neutrophil # 5.59 X10^3/uL (2.7-7.7); Neutrophil % 57.1 % (47-70); Nitrite-Dipstick Negative (Negative); Occult Blood-Urine 10 /ul (Negative); Platelet Count 219 K/mm3 (150-450); Protein-Dipstick Negative (Negative); RBC Distribution Width CV 12.2 % (11.6-14.6); RBC Distribution Width SD 41.4 fl (35.1-43.9); Red Blood Count 4.42 M/mm3 (4.2-5.4); Urine Bilirubin Dipstick Negative (Negative); Urine Clarity Sl. Cloudy (Clear); Urine Urobilinogen Normal (Normal); White Blood Count 9.8 K/mm3 (4.4-11.0)
[2020-12-26 20:57] LABS: Red Blood Cells-Urine 0-5 SEEN /hpf (0-5); Squamous Epithelial Cells - UA 0-5 SEEN /hpf (5-10); White Blood Cells 5-10 SEEN /hpf (0-5)
[2020-12-26 20:58] LABS: Amorphous Sediment 1+ URATE
[2020-12-26 21:04] LABS: ALB/GLOB Ratio 1.1 RATIO (0.9-2.4); AST(SGOT) 15 U/L (15-37); Alanine Aminotransfer ALT/SGPT 16 U/L (13-56); Albumin, Serum 3.6 g/dL (3.2-5.0); Alkaline Phosphatase 117 U/L (45-117); Anion Gap 3 (5-15); BUN 25 mg/dL (7-18); BUN/Creat Ratio 25.4 RATIO (10-20); Calcium,Total 9.3 mg/dL (8.5-10.1); Chloride 107 mmol/L (98-107); Creatinine, Serum 0.98 mg/dL (0.55-1.02); EST Glomerular Filtration Rate 58 mL/min (>60); Est Glom Filt Rate - Afr Amer 70 mL/min (>60); Estimated Creatinine Clearance 48.33 ml/min; Globulin 3.4 g/dL (2.2-4.2); Glucose 87 mg/dL (74-106); Potassium 3.9 mmol/L (3.5-5.1); Sodium Level 139 mmol/L (136-145)
[2020-12-26 22:31] VITALS: BP 152/79; PULSE 66; RESP 16; O2SAT 97
--- NOTE | 2020-12-26 22:39 | ED.DCSUM_ITS ---
- ER Visit Summary Date of Service: 12/26/20 Chief Complaint: Abdominal pain History of Present Illness: The patient is a 80 F who presents with abdominal pain that has gradually been getting worse over the past week. Patient states her pain is aching. Patient states the pain is over the left lower quadrant and left flank area. Patient states her pain is better when she rests and lays flat. Patient admits to nausea but denies any vomiting. Patient admits to some diarrhea. Patient also admits to some dysuria. Patient states she is currently on an antibiotic for urinary tract infection. Patient denies any hematuria. Physical Examination: Vital signs are stable. Patient is afebrile. Patient is in no acute distress. Oral mucosa is pink and moist. Neck is supple. Trachea is midline. There is no JVD. Heart was regular rate and rhythm. Lungs are clear and equal bilaterally. There is good respiratory effort. Abdomen is soft. Bowel sounds are normal. There is diffuse tenderness but worse over the left lower quadrant. There is no rebound or guarding noted. Cranial nerves II through XII are intact. There are no focal motor or sensory deficits noted. Extremities are intact. There is no calf tenderness or edema. Test Results: CBC and comprehensive metabolic profile were obtained and were essentially within normal limits. BUN was slightly elevated at 25. Urinalysis shows leukocyte esterase of 100 with 5-[address] scan of the abdomen pelvis was obtained. There is a 4.1 cm infrarenal abdominal aortic aneurysm. This is stable compared to previous results. There is no acute intra-abdominal process noted. This was interpreted by the radiologist and reviewed by myself. Emergency Department Course and Treatment: Patient was given IV fluids, morphine, and Zofran here. Patient was given a dose of IV Levaquin. Patient was feeling better on reevaluation. Patient was given a prescription for Zofran. Patient was instructed to finish her oral Levaquin as prescribed. Patient was instructed to return if worse in any way. Patient understood and was agreeable with the plan. All questions were answered. Disposition: Discharge home Impression: 1. Abdominal pain 2. Urinary tract infection This note was generated with [employer] software. It may contain incorrect words, spelling, and punctuation that were not noted in review of the chart prior to signing ED Disposition - Plan for ED Patient: Disposition: Home or Assisted Living Diagnosis: Lower abdominal pain, Urinary tract infection Instructions: ED Bladder Infection, Female (Adult) Prescriptions: proMETHazine tablet [Phenergan] 25 mg PO Q6H PRN PRN #10 tab PRN Reason: Nausea Transmission Status: Pending to [facility] Referrals: Boy Miller MD [Primary Care Provider] - 5-7 Days
[2020-12-26] MEDS: 0.9% Normal Saline 1,000 ML 999 ML IV (23:04)
[2020-12-26] MEDS: levoFLOXacin IV 750 MG/150 ML BAG 100 MG IV (23:13)
[2020-12-27 00:27] VITALS: RESP 16
== END 2020-12-27 01:36 | disposition home or self-care (01) ==
PROVIDERS: Emergency Provider Emergency Medicine; PCP Family Medicine
DX: R10.9 Unspecified abdominal pain (principal); N39.0 Urinary tract infection, site not specified; R19.7 Diarrhea, unspecified; I71.4 Abdominal aortic aneurysm, without rupture; Z79.01 Long term (current) use of anticoagulants; Z79.899 Other long term (current) drug therapy; I25.2 Old myocardial infarction; Z86.73 Personal history of transient ischemic attack (TIA), and cerebral infarction without residual deficits
CPT/HCPCS: 74177; 80053; 81001; 85025; 96365; 96366; 96375; 99283; J7030; Q9967; A4216; J2405

== ENCOUNTER 2020-12-29 16:33 | Emergency (ER) | payer MEDICARE, BC, SELFPAY ==
[2020-12-29 16:35] VITALS: BP 155/101; PULSE 92; RESP 28; TEMP 37.1; O2SAT 96; BMI 25.8
[2020-12-29 16:39] VITALS: BP 155/101; PULSE 92; RESP 28; TEMP 37.1; O2SAT 96
--- NOTE | 2020-12-29 16:46 | CT_ITS ---
STUDY: CT BRAIN WITHOUT CONTRAST REASON FOR EXAM: Female, 80 years old. Confusion RADIATION DOSAGE (If Supplied By Facility): CTDIvol = ( 44.99 ) mGy, DLP = ( 779.24 ) mGycm TECHNIQUE: Transaxial CT imaging of the brain was performed without administration of intravenous contrast material. Individualized dose optimization techniques were used for this CT. COMPARISON: No relevant priors. FINDINGS: There is no intra-/extra-axial fluid collection, mass effect, or midline shift. The granda/white matter junction is preserved. Hypoattenuation of periventricular and subcortical white matter suggestive of chronic small vessel ischemic disease. 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 Mild diffuse parenchymal volume loss is noted. There is vascular calcification. The basal cisterns are patent. Partial opacification of the left sphenoid sinus is seen. Other visualized paranasal sinuses and mastoid air cells are clear. The calvarium is intact. CT/Brain/Head without Contrast IMPRESSION: No acute intracranial finding. MRI may be obtained if clinically indicated Electronically Signed: Lalo Sarabia MD at 17:41 EDT Tel , Service support ,
--- NOTE | 2020-12-29 17:20 | RAD_ITS ---
STUDY: X-RAY CHEST REASON FOR EXAM: Female, 80 years old patient with confusion. TECHNIQUE: AP and lateral views of the chest. COMPARISON: Chest radiograph dated 08/08/2020. FINDINGS: Cardiac monitoring leads are present. The lungs are hyperexpanded. There is interstitial thickening present in both lungs. There is right basilar airspace disease and/or atelectasis. There is no demonstrated pleural abnormality. There is borderline cardiomegaly. Normal mediastinum and marilee. Normal visualized pulmonary arteries. There is atherosclerotic tortuosity of the aortic arch and descending thoracic aorta. Normal visualized thoracic spine. Normal visualized ribs, clavicles, and shoulders. There is no demonstrated abnormality of the visualized soft tissue structures of the upper abdomen. RAD/Chest PA and Lateral IMPRESSION: Right basilar airspace disease suggests possible pneumonia. Electronically Signed: Yasmin Mtz MD at 18:29 EDT , Service support ,
[2020-12-29 17:35] LABS: ALB/GLOB Ratio 1.1 RATIO (0.9-2.4); AST(SGOT) 16 U/L (15-37); Alanine Aminotransfer ALT/SGPT 19 U/L (13-56); Albumin, Serum 3.8 g/dL (3.2-5.0); Alkaline Phosphatase 120 U/L (45-117); Anion Gap 3 (5-15); BUN 22 mg/dL (7-18); BUN/Creat Ratio 20.2 RATIO (10-20); Calcium,Total 9.1 mg/dL (8.5-10.1); Chloride 109 mmol/L (98-107); Creatinine, Serum 1.09 mg/dL (0.55-1.02); EST Glomerular Filtration Rate 52 mL/min (>60); Est Glom Filt Rate - Afr Amer 62 mL/min (>60); Estimated Creatinine Clearance 36.14 ml/min; Globulin 3.4 g/dL (2.2-4.2); Glucose 108 mg/dL (74-106); Potassium 3.8 mmol/L (3.5-5.1); Protein, Total 7.2 g/dL (6.4-8.2); Sodium Level 141 mmol/L (136-145)
[2020-12-29 17:37] LABS: Absolute Lymphocyte Count 1.98 X10^3/uL (0.83-4.51); Absolute Neutrophil Count 5.4 X10^3/uL (2.0-7.7); Basophil# 0.06 X10^3/uL; Basophil% 0.7 % (0-1); Eosinophils% 4.6 % (0-5); Hematocrit 41.1 % (37-47); Hemoglobin 13.4 g/dL (12.0-15.0); Lymphocyte # 1.98 X10^3/ul (0.83-4.51); Mean Corp Hgb Conc 32.6 g/dL (32-36); Mean Corpuscular Hgb 30.1 pg (27.0-32.0); Mean Corpuscular Volume 92.4 fL (81-99); Mean Platelet Vol. 10.3 fl (6.2-12.0); Monocyte# 0.73 X10^3/uL; Monocyte% 8.5 % (0-10); NRBC Flagged by Analyzer 0 % (0-5); Neutrophil # 5.41 X10^3/uL (2.7-7.7); Neutrophil % 62.9 % (47-70); Platelet Count 231 K/mm3 (150-450); RBC Distribution Width CV 12.1 % (11.6-14.6); RBC Distribution Width SD 41.2 fl (35.1-43.9); Red Blood Count 4.45 M/mm3 (4.2-5.4); White Blood Count 8.6 K/mm3 (4.4-11.0)
[2020-12-29 17:41] LABS: Prothrombin Time (Protime)PT. 12.5 SECONDS (11.7-14.9)
[2020-12-29 17:42] LABS: Partial Thromboplast Time 21.4 Seconds (24.1-36.2)
[2020-12-29 17:47] VITALS: BP 161/96; PULSE 80; RESP 18; TEMP 37.1; O2SAT 95
[2020-12-29 17:47] LABS: Bacteria 0 SEEN /hpf (None Seen)
[2020-12-29] MEDS: Ceftriaxone 1 GM/50 ML BAG IV (17:47)
[2020-12-29 17:53] LABS: Color, Urine Straw (Yellow); Glucose, Dipstick Normal (Normal); Ketone-Dipstick Negative (Negative); Leukocyte Esterase-Dipstick Negative /ul (Negative); Nitrite-Dipstick Negative (Negative); Occult Blood-Urine 10 /ul (Negative); Protein-Dipstick Negative (Negative); Urine Bilirubin Dipstick Negative (Negative); Urine Clarity Clear (Clear); Urine Urobilinogen Normal (Normal)
--- NOTE | 2020-12-29 17:58 | ED.DCSUM_ITS ---
- ER Visit Summary Date of Service: 12/29/20 Chief Complaint: Confusion History of Present Illness: The patient is a [address] Miller. She was brought by EMS after calling the police and stating that there was somebody breaking into her shed. They came to her house and there was no one there and t jf found that she was confused. Patient does admit that she does not feel like she is thinking well. She reports has had similar symptoms with a UTI in the past. She lives with her son. Patient was seen in the emergency department 2 days ago and was told that she had a urinary tract infection and given a dose of Levaquin here. She was given a prescription for antibiotics, but did not get them filled. On review of systems patient complains of subjective fever and chills. She has a little cough. She reports has been nauseated and had very little diarrhea. She denies abdominal pain or vomiting. No melena medic easier. No dysuria or frequency. She reports that she has a headache that 6 of the 10 severity and generalized weakness that is increased over the past 3 weeks. Physical Examination: Vitals: Stable. Afebrile. General: Well-nourished and well-developed. Head: Normocephalic atraumatic. Neck: Supple, no lymphadenopathy. No JVD. Nontender. Cardiovascular: Regular rate and rhythm. 2 out of 6 systolic murmur. Respiratory: No respiratory distress. Clear to auscultation bilaterally. Abdominal: Soft, nontender, nondistended, normal bowel sounds. No guarding, rebound, or peritoneal signs. Back: Nontender. Extremities: Nontender, no edema. Skin: Normal color, no rash. Neurologic: Alert and oriented ? 2. When asked the year she reports 61. Cranial nerves II through XII are intact. Normal strength and sensation. Psych: Normal affect. Test Results: CBC is normal. Chem-7 shows a chloride of 109, glucose 108, BUN 2 2, creatinine 1.09. LFTs showed alk phos 120. INR is 1.0. PTT is 21.4. Urinalysis is negative. Lactate is 1.0. TSH is 3.39. Alcohol is negative. Tox screen shows methamphetamine. However, I suspect that this is from one of the medication she is on. CT brain shows no acute disease. Chest x-ray shows no acute disease. Emergency Department Course and Treatment: I reviewed the patient's urine from 2 days ago. Had 5-10 white blood cells. A culture was not obtained. A new UA was obtained and culture was sent. The radiologist read her chest x-ray as a possible right lower lobe infiltrate on my review there is no evidence of this. The lateral chest x-ray shows no evidence of this. Her white count is normal. Her lactic acid is normal. I do not think that giving her antibiotics for this is in her best interest. Patient was discussed with her son who reports that since October she has had recurrent episodes of visual hallucinations. I discussed with him that I feel that being admitted to a geriatric psychiatric facility for further evaluation of this is the most reasonable course of action. And he does agree with this. The patient is medically cleared. Treatment Plan: Patient was discussed with the counseling center and they will see her in the emergency department. Disposition: Pending Impression: 1. Visual hallucinations. This note was generated with [employer] dictation software. It may contain incorrect words, spelling, and punctuation that were not noted in review of the chart prior to signing ED Disposition - Plan for ED Patient: Referrals: Boy Miller MD [Primary Care Provider] -
[2020-12-29 18:09] LABS: Mucous, Urine 2+ /hpf (<or=2+); Red Blood Cells-Urine 0-5 SEEN /hpf (0-5); Squamous Epithelial Cells - UA 0-5 SEEN /hpf (5-10); White Blood Cells 0-5 SEEN /hpf (0-5)
[2020-12-29 18:25] LABS: Thyroid Stim Hormone (TSH) 3.39 uIU/mL (0.358-3.74)
[2020-12-29 18:38] LABS: Amphetamine Urine VISTA NEGATIVE (<1000 ng/mL); Barbiturate Urine VISTA NEGATIVE (< 200 ng/mL); Benzodiazepine Urine VISTA NEGATIVE (< 200 ng/mL); Cocaine Urine VISTA NEGATIVE (< 300 ng/mL); Ecstacy Urine VISTA POSITIVE (< 500 ng/mL); Methadone Urine VISTA NEGATIVE (< 300 ng/mL); PCP Urine VISTA NEGATIVE (< 25 ng/mL); THC Urine VISTA NEGATIVE (< 50 ng/mL); Vista UDS pH Range 5
[2020-12-29 18:54] LABS: Alcohol, Blood (Medical)-Serum < 3.0 mg/dL
[2020-12-29 19:01] VITALS: BP 144/89; PULSE 74; RESP 118; O2SAT 96
--- NOTE | 2020-12-29 19:32 | ED.RN ---
PAGED CRISIS TO SEE THIS PT
--- NOTE | 2020-12-29 19:33 | ED.RN ---
SANTA WILL BE IN WHEN DONE WITH HER CURRENT EVENT
[2020-12-29 20:32] VITALS: BP 161/79; PULSE 80; RESP 17; O2SAT 97
--- NOTE | 2020-12-29 21:19 | ED.RN ---
Son, Christiano, , states she first had an episode in mid October. States they live together and she heard her yelling for him and when he went to her she told him there were three people trying to kill the dog, in the yard and she had to let the dog in. States no one was there and snow was on the ground with no tracks in the yard. He does not think there are med changes that correlate with this time but then states she does not let family go in with her and will not let anyone see the papers from the appointments. Dr Dorsey took over call with son at this time.
--- NOTE | 2020-12-29 22:07 | ED.RN ---
CRISIS ON SITE
[2020-12-29 22:08] VITALS: BP 198/95; PULSE 105; RESP 24; TEMP 37; O2SAT 96
[2020-12-30 00:33] VITALS: PULSE 74; RESP 16
[2020-12-30 02:42] VITALS: BP 202/110; PULSE 109; RESP 16; O2SAT 98
[2020-12-30] MEDS: traZODone 50 MG Tablet PO (02:56)
[2020-12-30] MEDS: Metoprolol Tartrate 25 MG Tablet PO (02:56)
[2020-12-30 04:15] VITALS: BP 141/110; PULSE 81; RESP 19; O2SAT 97
--- NOTE | 2020-12-30 04:21 | ED.RN ---
PATIENT NOW AWARE SHEIS IN ER AND KEEPS CALLING ME SIS AND TOLD ME THAT ME AND DAD ARE GOING TO COME GET HER AND IT WONT BE 11AM EITHER BECAUSE WE CAN GET THERE SOONER.
--- NOTE | 2020-12-30 04:47 | ED.RN ---
Dr Mcdowell aware patient is more irritated and is restless and talking to people not there and only alerted to self at this time.
--- NOTE | 2020-12-30 05:14 | EKG12_ITS ---
Test Reason : CONFUSION Blood Pressure : / mmHG Vent. Rate : 081 BPM Atrial Rate : 081 BPM P-R Int : 160 ms QRS Dur : 070 ms QT Int : 388 ms P-R-T Axes : 070 049 053 degrees QTc Int : 450 ms Normal sinus rhythm Normal ECG Confirmed by MATTY VILLANUEVA, RAJ ([id number]), news copy editor CHRISTIANA MCDERMOTT ([id number]) on 12/31/2020 8:43:35 AM Referred By: SERAFIN Confirmed By:YUDELKA STARR MD
[2020-12-30 06:36] VITALS: BP 155/94; PULSE 70; PULSE 76; RESP 17; TEMP 36.9; O2SAT 98
--- NOTE | 2020-12-30 06:43 | SUR.HOLD ---
Called to let Christiano know of transfer to generations and gave number to call.
== END 2020-12-30 07:13 ==
PROVIDERS: Emergency Provider Emergency Medicine; PCP Family Medicine
DX: R44.1 Visual hallucinations (principal); R19.7 Diarrhea, unspecified; I25.10 Atherosclerotic heart disease of native coronary artery without angina pectoris; I10 Essential (primary) hypertension; G25.81 Restless legs syndrome; M19.90 Unspecified osteoarthritis, unspecified site; Z79.01 Long term (current) use of anticoagulants; Z79.899 Other long term (current) drug therapy; Z87.440 Personal history of urinary (tract) infections; Z86.718 Personal history of other venous thrombosis and embolism
CPT/HCPCS: 70450; 71046; 80053; 80307; 81001; 82077; 83605; 84443; 85025; 85610; 85730; 87040; 87086; 87426; 93005; 96365; 99285; J7050; P9612; A4216

== ENCOUNTER 2022-05-10 12:30 | Observation (INO) | payer MEDICARE, BC, SELFPAY ==
[2022-05-10] VITALS (9 sets, daily range): BP systolic 146–189; BP diastolic 66–149; PULSE 62–105; RESP 14–19; TEMP 36.5–37; O2SAT 93–97; BMI 26.2; BMI 24.0
--- NOTE | 2022-05-10 12:44 | EKG12_ITS ---
Test Reason : SYNCOPE Blood Pressure : / mmHG Vent. Rate : 065 BPM Atrial Rate : 065 BPM P-R Int : 152 ms QRS Dur : 068 ms QT Int : 446 ms P-R-T Axes : 052 021 038 degrees QTc Int : 463 ms Normal sinus rhythm Normal ECG Confirmed by TERENCE VILLANUEVA, CARINE ([id number]), clinical editor CHRISTIANA MDCERMOTT ([id number]) on 05/12/2022 7:33:20 AM Referred By: ANKUR Confirmed By:CARINE PRATT MD
--- NOTE | 2022-05-10 12:44 | CT_ITS ---
HISTORY: head trauma. TECHNIQUE: Multiple axial images were obtained of the head without intravenous contrast. A radiation dose optimization technique was used for this scan. 240 images. COMPARISON: 12/29/2020. FINDINGS: BRAIN PARENCHYMA: Multiple foci and zones of low attenuation in the bilateral cerebral white matter compatible with chronic small vessel ischemic gliosis. No acute intra-axial hemorrhage identified. CSF SPACES: Generalized volume loss. No midline shift or other significant mass effect. No acute extra-axial hemorrhage seen. OTHER: Intact calvarium. No significant air-fluid levels in the paranasal sinuses or mastoid air cells. Unremarkable orbital contents. CT/Brain/Head without Contrast IMPRESSION: No acute intracranial process identified. 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 Electronically Signed: Gracia Mullen MD at 14:08 EDT ,
--- NOTE | 2022-05-10 12:45 | EDS_ITS ---
HPI History of Present Illness Chief Complaint: General Illness Informant: patient Onset/Context/Timing Onset: Weeks Context: Gradual Onset Timing: Intermittent Current Severity: Mild Maximum Severity: Mild Narrative Narrative: 81-year-old female history of CAD, NM, AAA, DVT and PEs on Eliquis. States that she has been having episodes of lightheaded dizziness where she passes out she said has happened before. No recent evaluation. States she hit her head last week. What patient also states she thinks she is having a urinary tract infection she has had dysuria intermittently for the last week worse in the last 2 days. Denies any chest pain. No abdominal pain. No vomiting or diarrhea. No melena. No fever or recent illness. No recent hospitalization except for November where she states she was [facility] in a [facility]. Prior similar symptoms: Yes Recent Illness/Hospitalization: No PFSH PFSH Medical History Heart attack High cholesterol HTN (hypertension) Overactive bladder Home Medications lisinopril 5 mg tablet 5 mg PO BID blood pressure 08/17/16 [History Last Taken 10/18/18 5 MG] metoprolol tartrate 25 mg tablet 25 mg PO DAILY blood pressure 08/17/16 [History Last Taken 10/18/18 25 MG] pravastatin 40 mg tablet 40 mg PO DAILY cholesterol 08/17/16 [History Last Taken 10/18/18 40 MG] Ropinirole Hcl [Requip] 1 mg PO QHS restless legs 07/12/18 [History Last Taken 10/18/18 0.25 MG] levothyroxine 50 mcg tablet 50 mcg PO DAILY thyroid 07/12/18 [History Last Taken 10/18/18 50 MCG] omeprazole 40 mg capsule,delayed release 40 mg PO DAILY reduce acid reflux 07/12/18 [History Last Taken 10/18/18 40 MG] promethazine 25 mg tablet 25 mg PO Q6H PRN PRN Nausea 07/12/18 [History Last Taken 10/18/18 25 MG] acetaminophen 325 mg tablet (Tylenol) 650 mg PO Q6H PRN PRN Mild-Mod Pain (1- 5/10) 07/25/18 [Rx Last Taken Unknown] albuterol sulfate 90 mcg/actuation aerosol inhaler (ProAir HFA) 2 puff inhalation Q4H PRN PRN Sob &/Or Wheezing 10/18/18 [History Last Taken 10/18/18 2 PUFF] apixaban 5 mg tablet (Eliquis) 5 mg PO BID DVT 10/18/18 [History Last Taken 10/18/18 5 MG] clonazepam 0.5 mg tablet 1.5 mg PO HS PRN Anxiety 10/18/18 [History Last Taken 10/18/18 1.5 MG] fluconazole 150 mg tablet 1 tab PO X1 ##1 11/27/19 [Rx Last Taken Unknown] oxycodone-acetaminophen 5 mg-325 mg tablet 1 ea PO Q8H PRN PRN Pain Score 6- 10/10 5 days ##14 11/29/19 [Rx Last Taken Unknown] albuterol sulfate 90 mcg/actuation aerosol inhaler 1 - 2 puff inhalation Q4H PRN PRN Wheezing ##1 08/08/20 [Rx Last Taken Unknown] ondansetron 4 mg disintegrating tablet 8 mg PO Q8H PRN PRN Nausea ##20 08/08/20 [Rx Last Taken Unknown] prednisone 20 mg tablet 60 mg PO DAILY ##12 08/08/20 [Rx Last Taken Unknown] trazodone 50 mg tablet 50 mg PO QHS 12/26/20 [History Last Taken Unknown] promethazine 25 mg tablet 25 mg PO Q6H PRN PRN Nausea #10 TABLETS 12/27/20 [Rx Last Taken Unknown] Allergy/AdvReac Type Severity Reaction Status Date / Time bupropion [From Wellbutrin] Allergy Unknown Verified 05/10/22 12:35 carbidopa [From Sinemet] Allergy Unknown Verified 05/10/22 12:35 celecoxib [From Celebrex] Allergy Nausea Verified 05/10/22 12:35 codeine Allergy Unknown Verified 05/10/22 12:35 levodopa [From Sinemet] Allergy Unknown Verified 05/10/22 12:35 nitrofurantoin Allergy Unknown Verified 05/10/22 12:35 [From Macrobid] phenytoin [From Dilantin] Allergy Unknown Verified 05/10/22 12:35 prochlorperazine Allergy Unknown Verified 05/10/22 12:35 [From Compazine] Sulfa (Sulfonamide Allergy Unknown Verified 05/10/22 12:35 Antibiotics) sulfamethoxazole Allergy Unknown Verified 05/10/22 12:35 [From Bactrim] trimethoprim [From Bactrim] Allergy Unknown Verified 05/10/22 12:35 Social History Smoking Status: Unknown if ever smoked ROS ROS ED ROS Narrative Syncope. Lightheadedness. Dysuria. Review of Systems ROS Unobtainable: Denies due to encephalopathy Constitutional Constitutional ED: Denies chills or fever(s) Eyes Eyes: Denies blurry vision ENT ENT ED: Denies ear pain Cardiovascular Cardiovascular: Denies chest pain Respiratory/Chest Respiratory/Chest: Denies cough or dyspnea Gastrointestinal Gastrointestinal: Denies abdominal pain Genitourinary Genitourinary ED: Reports dysuria; Denies hematuria Musculoskeletal Musculoskeletal: Denies arthralgias or back pain Integumentary Denies abscess Neurologic Neurologic: Denies headache(s) Psychiatric Psychiatric: Denies anxiety Endocrine Endocrinology: Denies cold intolerance Hematologic/Lymphatic Hematologic/Lymphatic: Reports none Allergic/Immunologic Allergic/Immunologic ED: Denies mouth swelling or tongue swelling EXAM Physical Exam Narrative Exam Narrative: 9-year-old female no acute distress. Vital signs stable afebrile. Pulse ox 96% on room air no signs hypoxia. H EENT exam unremarkable atraumatic. Pupils round reactive light. No scalp tenderness no facial tenderness or bruising. Neck nontender. Lungs are clear. Heart regular rhythm no murmur. Abdomen soft nontender. Chest wall nontender. Pelvic girdle intact. No shortening or rotation of either lower extremity. Neurologically she is awake and alert with no focal motor deficits. Upper extremities are nontender. Lower extremities are nontender. Normal range of motion. Normal remedial teacher strength. She answers questions and follows commands. Acting normally. Const Vital Signs: 05/10/22 12:30 05/10/22 12:36 05/10/22 12:55 Temperature 98.6 F Temperature Source Oral Pulse Rate 69 Pulse Rate [Lying] Pulse Rate [Sitting (for 1 minute prior to obtaining)] Respiratory Rate 18 Respiratory Effort Normal Non-Labored Blood Pressure 156/74 H Blood Pressure [Lying] Blood Pressure [Sitting (for 1 minute prior to obtaining)] Blood Pressure Mean 101 Blood Pressure Mean [Lying] Blood Pressure Mean [Sitting (for 1 minute prior to obtaining)] Pulse Ox 96 97 Oxygen Delivery Method Room Air Room Air 05/10/22 14:18 05/10/22 14:49 Temperature Temperature Source Pulse Rate 65 Pulse Rate [Lying] 62 Pulse Rate [Sitting (for 1 minute prior to obtaining)] 66 Respiratory Rate 19 H Respiratory Effort Blood Pressure 147/88 H Blood Pressure [Lying] 150/66 H Blood Pressure [Sitting (for 1 minute prior to obtaining)] 146/77 H Blood Pressure Mean 107 Blood Pressure Mean [Lying] 94 Blood Pressure Mean [Sitting (for 1 minute prior to obtaining)] 100 Pulse Ox 95 Oxygen Delivery Method Positive well nourished and well developed; Negative for obese, cachectic, contractures or unkempt General Appearance ED: well developed and NAD; Negative for unkempt, cachectic, contractures, cyanotic or diaphoretic Nutritional Appearance: Negative for cachectic or obese HEENT Reports moist mucous membranes; Denies dry mucous membranes Negative for trauma or tenderness Mouth ED: No dry mucous membranes Mouth: No dry mucous membranes Eyes PERRL and EOMs intact bilaterally General Eye ED: Negative for pale conjunctiva, scleral icterus or other Neck no lymphadenopathy, supple and no JVD General: Negative for tenderness or other Lymph Lymphatic: Negative for other Chest Wall inspection of chest normal and palpation of chest normal Chest: Negative for other Resp normal respiratory effort and clear to auscultation bilaterally Effort and Inspection: Negative for retractions or pain with movement Auscultation: Negative for rales, rhonchi or wheezes Cardio regular rate, regular rhythm, S1 normal heart sound, S2 normal heart sound and no murmurs Palpation: Negative for palpable S3 Rate: Negative for bradycardia Rhythm: Negative for abnormal rhythm GI normal to inspection, nondistended, normoactive bowel sounds, non-tender, non- distended and no masses Inspection: Negative for abdominal distention Auscultation: normoactive bowel sounds Palpation: soft; Negative for tender Back/Spine no CVA tenderness General Back: Negative for CVA tenderness Cervical Spine: Negative for cervical spine tenderness Thoracic Spine / Upper Back: Negative for thoracic spinal tenderness Lumbar Spine / Lower Back: Negative for lumbar spinal tenderness Extremity normal to inspection General Extremety ED: Negative for edema or tenderness General Extremity: Negative for edema Neuro oriented x3 and CN's II-XII intact bilaterally Sensorium / Orientation: alert; Negative for orientation impaired, lethargic or stuporous Motor Exam: strength 5/5 throughout Psych mental status grossly normal Appearance: Negative for unkempt Attitude: No agitated Mood & Affect: Negative for depressed, anxious or tearful Skin no rashes or lesions noted and no wounds Lesions: No lesion noted Rashes: No rashes noted Trauma: Negative for abrasion Wounds: Negative for wounds noted MDM MDM MDM Narrative Medical decision making narrative: 81-year-old with dysuria and complaining of intermittent episodes of syncope for 2 weeks. Also may have hit her head on Eliquis. CAT scan labs are pending. Along with orthostatic vital signs and urinalysis. Exam is benign. Patient's daughter is in the emergency department I spoke with her at length both with and without the patient in the room. She states that she had no any about falls. Said her mom has some mild dementia. Lives at home with the patient's son percent talking to his brother. She is concerned that she is just not getting cared for now. Significant issues with bedbugs. She is to do urine all over the home. Her mom has some problems with incontinence. She would like her to be admitted for failure to thrive and then discussed with social sciences research scientist options such as assisted living or even [place] [facility] placement. Mom is resistant to this but the daughter has power of commercial litigation attorney. Daughter also states that when he found her today the woman was basically undressed lying on the floor in urine. Lab Data Attestation: I reviewed the patient's lab results. Lab results narrative: CBC unremarkable white count 8.1. H&H of 13.1 and 41. Platelets 194. Electrolytes unremarkable gap of 4 BUN 24 creatinine of 1 glucose 189. Troponin normal at 7. Urinalysis showed no nitrates. No white or red cells and no bacteria so it is negative also. Chest x-ray showed no acute abnormality. As did the CT of the brain. Orthostatic vital signs Per nurse lying and sitting are unremarkable. Labs: Laboratory Results - last 24 hr 05/10/22 05/10/22 05/10/22 12:45 12:45 13:30 WBC 8.1 RBC 4.47 Hgb 13.1 Hct 41.1 MCV 91.9 MCH 29.3 MCHC 31.9 L RDW Std Deviation 42.6 RDW Coeff of Jose M 12.6 Plt Count 194 MPV 10.7 Immature Gran % (Auto) 0.200 Neut % (Auto) 66.7 Lymph % (Auto) 22.2 Bond % (Auto) 6.3 Eos % (Auto) 4.0 Baso % (Auto) 0.6 Absolute Neuts (auto) 5.4 Absolute Lymphs (auto) 1.79 Nucleated RBC % 0 Sodium 142 Potassium 4.4 Chloride 110 H Carbon Dioxide 28.0 Anion Gap 4 L BUN 24 H Creatinine 1.07 H Estim Creat Clear Calc 33.17 Est GFR (MDRD) Af Amer 63 Est GFR (MDRD) Non-Af 52 L BUN/Creatinine Ratio 22.4 H Glucose 189 H Calcium 9.4 Troponin I High Sens 7 Urine Color Yellow Urine Clarity Sl. Cloudy Urine pH 6.0 Ur Specific [place] 1.020 Urine Protein 15 H Urine Glucose (UA) Normal Urine Ketones Negative Urine Occult Blood 10 H Urine Nitrite Negative Urine Bilirubin Negative Urine Urobilinogen Normal Ur Leukocyte Esterase 100 H Urine RBC 0 SEEN Urine WBC 0-5 SEEN Ur Squamous Epith Cells 0-5 SEEN Amorphous Sediment 1+ Urine Bacteria 0 SEEN Urine Mucus 0 SEEN Radiography Chest X-Ray - ED: 1 View, Read by ED Physician, Read by Radiologist, Heart, Lungs, Mediastinum, Bony Structures, No Acute Disease and Chronic Changes Diagnostic Testing: Clinical Impression(s) from Imaging Studies Brain CT 05/10/22 12:44 IMPRESSION: No acute intracranial process identified. 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 Electronically Signed: Gracia Mullen MD at 14:08 EDT , Chest X-Ray 05/10/22 13:18 IMPRESSION: No acute cardiopulmonary process identified. Electronically Signed: Gracia Mullen MD at 14:10 EDT , X-ray, portable, single view interpreted myself and radiologist shows no acute abnormality. Normal cardiac silhouette. No infiltrate. Rhythm Strip Rhythm Strip: Sinus Rhythm Rate: 65 Ectopy: None EKG Initial EKG: Attestation: I personally reviewed and interpreted this EKG as follows: Interpretation: Sinus Rhythm and No Acute Injury Pattern Comments: Normal sinus rhythm rate of 65 no acute signs of NM nor ischemia. Discharge Plan Dx/Rx/DC Orders Clinical Impression: Dementia, Adult failure to thrive, Urinary incontinence Disposition Disposition: Acute Care Hospital [facility]
[2022-05-10 12:55] LABS: Absolute Lymphocyte Count 1.79 X10^3/uL (0.83-4.51); Absolute Neutrophil Count 5.4 X10^3/uL (2.0-7.7); Basophil# 0.05 X10^3/uL; Basophil% 0.6 % (0-1); Eosinophil# 0.32 X10^3/uL; Hematocrit 41.1 % (37-47); Hemoglobin 13.1 g/dL (12.0-15.0); Lymphocyte # 1.79 X10^3/ul (0.83-4.51); Lymphocyte % 22.2 % (19-41); Mean Corp Hgb Conc 31.9 g/dL (32-36); Mean Corpuscular Hgb 29.3 pg (27.0-32.0); Mean Corpuscular Volume 91.9 fL (81-99); Mean Platelet Vol. 10.7 fl (6.2-12.0); Monocyte# 0.51 X10^3/uL; Monocyte% 6.3 % (0-10); NRBC Flagged by Analyzer 0 % (0-5); Neutrophil # 5.37 X10^3/uL (2.7-7.7); Neutrophil % 66.7 % (47-70); Platelet Count 194 K/mm3 (150-450); RBC Distribution Width CV 12.6 % (11.6-14.6); RBC Distribution Width SD 42.6 fl (35.1-43.9); Red Blood Count 4.47 M/mm3 (4.2-5.4); White Blood Count 8.1 K/mm3 (4.4-11.0)
--- NOTE | 2022-05-10 13:18 | RAD_ITS ---
HISTORY: chest pain. TECHNIQUE: XR Chest 1 View. COMPARISON: 12/29/2020. FINDINGS: CARDIOMEDIASTINAL BORDERS: Cardiac silhouette within normal limits in size. Mediastinal contour unremarkable with calcification of the aortic knob. LUNGS: Radiographically clear. PLEURA: No pleural effusion or pneumothorax seen. OSSEOUS STRUCTURES: Mild degenerative change. RAD/Chest 1 View (Portable) IMPRESSION: No acute cardiopulmonary process identified. Electronically Signed: Gracia Mullen MD at 14:10 EDT ,
[2022-05-10 13:21] LABS: Anion Gap 4 (5-15); BUN 24 mg/dL (7-18); BUN/Creat Ratio 22.4 RATIO (10-20); Calcium,Total 9.4 mg/dL (8.5-10.1); Chloride 110 mmol/L (98-107); Creatinine, Serum 1.07 mg/dL (0.55-1.02); EST Glomerular Filtration Rate 52 mL/min (>60); Est Glom Filt Rate - Afr Amer 63 mL/min (>60); Estimated Creatinine Clearance 33.17 ml/min; Glucose 189 mg/dL (74-106); Potassium 4.4 mmol/L (3.5-5.1); Sodium Level 142 mmol/L (136-145); Troponin-I HS (w/2H Reflex) 7 pg/mL (3.0-54.0)
[2022-05-10 13:37] LABS: Bacteria 0 SEEN /hpf (None Seen); Mucous, Urine 0 SEEN /hpf (<or=2+); Red Blood Cells-Urine 0 SEEN /hpf (0-5)
[2022-05-10 13:39] LABS: Color, Urine Yellow (Yellow); Glucose, Dipstick Normal (Normal); Ketone-Dipstick Negative (Negative); Leukocyte Esterase-Dipstick 100 /ul (Negative); Nitrite-Dipstick Negative (Negative); Occult Blood-Urine 10 /ul (Negative); Protein-Dipstick 15 mg/dl (Negative); Urine Bilirubin Dipstick Negative (Negative); Urine Clarity Sl. Cloudy (Clear); Urine Urobilinogen Normal (Normal)
[2022-05-10 13:47] LABS: Squamous Epithelial Cells - UA 0-5 SEEN /hpf (5-10); White Blood Cells 0-5 SEEN /hpf (0-5)
[2022-05-10 13:48] LABS: Amorphous Sediment 1+
[2022-05-10 14:53] LABS: Reflex Troponin-HS? (from REC) Y
--- NOTE | 2022-05-10 15:29 | ED.RN ---
per provider, do not need 2nd troponin.
--- NOTE | 2022-05-10 15:45 | HP.PCM.HOS_ITS ---
[facility] - General General Date of Admission: 05/10/22 Date of Service: 05/10/22 Chief Complaint: Dizzy, wobbly loss of balance, fall, unclear syncope and found on floor HPI Narrative MARÍA ELENA BRANDON, is a 81 F with history of Alzheimer's dementia diagnosed about a year ago was found on the floor by her son when she checked on her today. The patient was half naked, laying down in the urine therefore he called her sister and EMS brought to ED. Patient does not remember the events well because of dementia but she said she gets dizzy and wobbly and tends to fall forward for about 2 to 3 months. Sometimes he falls 2-3 times a day and sometimes once in a week. She denies any major injury but she has chronic aches pain all over in the body. During last admission it was documented that she wants opioids and pain medicine seeking behavior. She also has chronic uinrary incontinence, itching in perineal region most probably due to bad hygiene. She herself denies passing out but the son found her confused as fall was unwitnessed therefore history of syncope is unclear. EMS vitals were normal for age.She denies any chest pain, no shortness of breath, palpitation just before fall. She had minor heart attack many years ago but did not require cardiac cath/PCI. She has history of DVT and is on blood thinner, Eliquis about 5 to 6 years ago by PCP. No abdominal pain vomiting diarrhea. No GI bleed. Denies fever or chills. She denies burning micturition but has been itching. Twelve-lead EKG shows normal sinus rhythm 65 beats per, QTC 463 ms QRS 68 ms. Previous EKG was also normal sinus rhythm. Brain CT individually reviewed shows no acute intracranial process. Chest x-ray shows no acute changes but mild chronic interstitial changes. She has probably history of emphysema with history of chronic smoking since teenage, quit 2 years ago. She has not had COVID-vaccine. [facility] Medical History Heart attack High cholesterol HTN (hypertension) Overactive bladder Home Medications lisinopril 5 mg tablet 5 mg PO BID blood pressure 08/17/16 [History Last Taken 10/18/18 5 MG] metoprolol tartrate 25 mg tablet 25 mg PO DAILY blood pressure 08/17/16 [History Last Taken 10/18/18 25 MG] pravastatin 40 mg tablet 40 mg PO DAILY cholesterol 08/17/16 [History Last Taken 10/18/18 40 MG] Ropinirole Hcl [Requip] 1 mg PO QHS restless legs 07/12/18 [History Last Taken 10/18/18 0.25 MG] levothyroxine 50 mcg tablet 50 mcg PO DAILY thyroid 07/12/18 [History Last Taken 10/18/18 50 MCG] omeprazole 40 mg capsule,delayed release 40 mg PO DAILY reduce acid reflux 07/12/18 [History Last Taken 10/18/18 40 MG] promethazine 25 mg tablet 25 mg PO Q6H PRN PRN Nausea 07/12/18 [History Last Taken 10/18/18 25 MG] acetaminophen 325 mg tablet (Tylenol) 650 mg PO Q6H PRN PRN Mild-Mod Pain (1- 5/10) 07/25/18 [Rx Last Taken Unknown] albuterol sulfate 90 mcg/actuation aerosol inhaler (ProAir HFA) 2 puff inhalation Q4H PRN PRN Sob &/Or Wheezing 10/18/18 [History Last Taken 10/18/18 2 PUFF] apixaban 5 mg tablet (Eliquis) 5 mg PO BID DVT 10/18/18 [History Last Taken 10/18/18 5 MG] clonazepam 0.5 mg tablet 1.5 mg PO HS PRN Anxiety 10/18/18 [History Last Taken 10/18/18 1.5 MG] fluconazole 150 mg tablet 1 tab PO X1 ##1 11/27/19 [Rx Last Taken Unknown] oxycodone-acetaminophen 5 mg-325 mg tablet 1 ea PO Q8H PRN PRN Pain Score 6- 10/10 5 days ##14 11/29/19 [Rx Last Taken Unknown] albuterol sulfate 90 mcg/actuation aerosol inhaler 1 - 2 puff inhalation Q4H PRN PRN Wheezing ##1 08/08/20 [Rx Last Taken Unknown] ondansetron 4 mg disintegrating tablet 8 mg PO Q8H PRN PRN Nausea ##20 08/08/20 [Rx Last Taken Unknown] prednisone 20 mg tablet 60 mg PO DAILY ##12 08/08/20 [Rx Last Taken Unknown] trazodone 50 mg tablet 50 mg PO QHS 12/26/20 [History Last Taken Unknown] promethazine 25 mg tablet 25 mg PO Q6H PRN PRN Nausea #10 TABLETS 12/27/20 [Rx Last Taken Unknown] Allergy/AdvReac Type Severity Reaction Status Date / Time bupropion [From Wellbutrin] Allergy Unknown Verified 05/10/22 12:35 carbidopa [From Sinemet] Allergy Unknown Verified 05/10/22 12:35 celecoxib [From Celebrex] Allergy Nausea Verified 05/10/22 12:35 codeine Allergy Unknown Verified 05/10/22 12:35 levodopa [From Sinemet] Allergy Unknown Verified 05/10/22 12:35 nitrofurantoin Allergy Unknown Verified 05/10/22 12:35 [From Macrobid] phenytoin [From Dilantin] Allergy Unknown Verified 05/10/22 12:35 prochlorperazine Allergy Unknown Verified 05/10/22 12:35 [From Compazine] Sulfa (Sulfonamide Allergy Unknown Verified 05/10/22 12:35 Antibiotics) sulfamethoxazole Allergy Unknown Verified 05/10/22 12:35 [From Bactrim] trimethoprim [From Bactrim] Allergy Unknown Verified 05/10/22 12:35 Social History Smoking Status: Unknown if ever smoked ROS ROS Narrative 14 ROS mainly obtained from patient's daughter as patient has Alzheimer's luzma ntia Complete 14 ROS not possible due to patient's history of Alzheimer's dementia. Constitutional: Reports fatigue and weakness. HEENT: Reports systems reviewed and no addt'l complaints, except as documented Respiratory/Chest: Denies chest pain, shortness of breath at rest or with exertion Gastrointestinal: Denies coffee ground emesis, hematemesis or vomiting Genitourinary: Denies burning urination or new urinary tract symptoms Musculoskeletal: Wobbly gait, and balance, recurrent fall. Mild chronic right lower back pain. Neurologic: Denies seizure-like activity. No acute weakness, numbness or tingling. skin: No ulcer. No rash Endocrinology: Reports systems reviewed and no addt'l complaints, except as documented Hematologic/Lymphatic: Reports systems reviewed and no addt'l complaints, except as documented Rest 14 ROS are negative except as mentioned in HPI Vital Signs Vital Signs Vital Signs: 05/10/22 12:30 05/10/22 12:36 05/10/22 12:55 Temperature 98.6 F Temperature Source Oral Pulse Rate 69 Pulse Rate [Lying] Pulse Rate [Sitting (for 1 minute prior to obtaining)] Respiratory Rate 18 Respiratory Effort Normal Non-Labored Blood Pressure 156/74 H Blood Pressure [Lying] Blood Pressure [Sitting (for 1 minute prior to obtaining)] Blood Pressure Mean 101 Blood Pressure Mean [Lying] Blood Pressure Mean [Sitting (for 1 minute prior to obtaining)] Pulse Ox 96 97 Oxygen Delivery Method Room Air Room Air 05/10/22 14:18 05/10/22 14:49 Temperature Temperature Source Pulse Rate 65 Pulse Rate [Lying] 62 Pulse Rate [Sitting (for 1 minute prior to obtaining)] 66 Respiratory Rate 19 H Respiratory Effort Blood Pressure 147/88 H Blood Pressure [Lying] 150/66 H Blood Pressure [Sitting (for 1 minute prior to obtaining)] 146/77 H Blood Pressure Mean 107 Blood Pressure Mean [Lying] 94 Blood Pressure Mean [Sitting (for 1 minute prior to obtaining)] 100 Pulse Ox 95 Oxygen Delivery Method Weight Weight: 143 lb 8.335 oz Body Mass Index (BMI) 26.2 Physical Exam Narrative General: Alert, Oriented x3, Cooperative HEENT: Atraumatic, PERRLA, EOMI, Normocephalic Oral: Oral mucosa dry. No Gingival or Mucosal Lesions/ Ulcerations Neck: Supple, No JVD, Negative Carotid Bruits Lungs: Air entry diminished in bilateral lung bases. No crepitation/rhonchi/wheezing Cardiovascular: Regular rate, Regular Rhythm, Normal S1, Normal S2, No murmurs Abdomen: Bowel Sounds Present, Soft, Non Tender, Non-Distended : No renal angle tenderness. No suprapubic tenderness. Extremities: No edema, Capillary Refill Less than 3 Seconds Skin: No rashes, No breakdown Musculoskeletal: Mild muscle tenderness of her right upper back. No Tenderness to Palpation of Joints or extremities extremities Neurological: Cranial nerves II-XII grossly intact, DTR 2+/4 and no focal deficit Psych/Mental Status: Forgetfulness, amnesia. Alzheimer's dementia Results Lab / Micro Data Result Diagrams: 05/10/22 12:45 05/10/22 12:45 Labs: Laboratory Results - last 24 hr 05/10/22 12:45: WBC 8.1, RBC 4.47, Hgb 13.1, Hct 41.1, MCV 91.9, MCH 29.3, MCHC 31.9 L, RDW Std Deviation 42.6, RDW Coeff of Jose M 12.6, Plt Count 194, MPV 10.7, Immature Gran % (Auto) 0.200, Neut % (Auto) 66.7, Lymph % (Auto) 22.2, Brooks % (Auto) 6.3, Eos % (Auto) 4.0, Baso % (Auto) 0.6, Absolute Neuts (auto) 5.4, Absolute Lymphs (auto) 1.79, Nucleated RBC % 0 05/10/22 12:45: Sodium 142, Potassium 4.4, Chloride 110 H, Carbon Dioxide 28.0, Anion Gap 4 L, BUN 24 H, Creatinine 1.07 H, Estim Creat Clear Calc 33.17, Est GFR (MDRD) Af Amer 63, Est GFR (MDRD) Non-Af 52 L, BUN/Creatinine Ratio 22.4 H, Glucose 189 H, Calcium 9.4, Troponin I High Sens 7 05/10/22 13:30: Urine Color Yellow, Urine Clarity Sl. Cloudy, Urine pH 6.0, Ur Specific [place] 1.020, Urine Protein 15 H, Urine Glucose (UA) Normal, Urine Ketones Negative, Urine Occult Blood 10 H, Urine Nitrite Negative, Urine Bilirubin Negative, Urine Urobilinogen Normal, Ur Leukocyte Esterase 100 H, Urine RBC 0 SEEN, Urine WBC 0-5 SEEN, Ur Squamous Epith Cells 0-5 SEEN, Amorphous Sediment 1+, Urine Bacteria 0 SEEN, Urine Mucus 0 SEEN Rhythm Strip Rhythm Strip: Sinus Rhythm Rate: 65 Ectopy: None Radiology Impression Brain CT 05/10/22 12:44 IMPRESSION: No acute intracranial process identified. 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 Electronically Signed: Gracia Mullen MD at 14:08 EDT , Chest X-Ray 05/10/22 13:18 IMPRESSION: No acute cardiopulmonary process identified. Electronically Signed: Gracia Mullen MD at 14:10 EDT , Assessment & Plan Assessment/Plan (1) Near syncope: PLAN: Plan 9-year-old female admitted with acute on recurrent fall, dizziness, chronic ve rtigo for more than 1 month. Lately she has been falling more often, her symptoms are exaggerated. #1 Near syncope, dizziness vertigo with unclear syncope: Patient is being admitted as an observation in PCU. Orthostatic vitals. PT and OT evaluation. Since history is not reviewed we will do 2D echo as he also has remote history of [place]. UA LE 100, WBC 0-5, nitrite negative. Urine culture ordered. She has perineal itching but denies burning micturition. Calmoseptine ordered. Urine culture ordered. 2. Recurrent fall, difficulty balance/disagreement: PT and OT, might need rehab. #4 history of mild coronary artery disease/[place] remotely: More than 10 years ago she had minor heart attack as described by her daughter. #5 history of PE/DVT: Continue Eliquis. #6 hypothyroidism: Continue levothyroxine. TSH tomorrow AM. #7 abdominal aortic aneurysm: No acute abdominal pain during previous admission in November 2019 when she was admitted for acute cystitis, CT abdomen showed stable AAA. #8 restless leg syndrome/anxiety: On clonazepam and trazodone. #9 Alzheimer's dementia: Not on any dementia medication, Aricept or memantine 10. Frail history of COPD: She quit 2 years ago. DuoNeb as needed ordered for DVT prophylaxis: Continue Eliquis. Living will/advanced directive/end of life care: Patient does not have living will or advanced directive. Her daughter presented at the bedside in ED is power of [place] attorney for health. After discussion of benefits/risks procedures involved with full code, DNR CC arrest and DNR CC, the patient daughter said she is DNR CC arrest with no intubation. She does not want life support. Patient does want artificial life support including intubation, tube feed, ventilator and/chest compression, central venous catheter, vasopressor and DC shock if needed Total time spent in [id number] encounter in discussion of advanced directive 16 minutes. Laboratory Results 05/10/22 12:45: WBC 8.1, RBC 4.47, Hgb 13.1, Hct 41.1, MCV 91.9, MCH 29.3, MCHC 31.9 L, RDW Std Deviation 42.6, RDW Coeff of Jose M 12.6, Plt Count 194, MPV 10.7, Immature Gran % (Auto) 0.200, Neut % (Auto) 66.7, Lymph % (Auto) 22.2, Brooks % (Auto) 6.3, Eos % (Auto) 4.0, Baso % (Auto) 0.6, Absolute Neuts (auto) 5.4, Abso lute Lymphs (auto) 1.79, Nucleated RBC % 0 05/10/22 12:45: Sodium 142, Potassium 4.4, Chloride 110 H, Carbon Dioxide 28.0, Anion Gap 4 L, BUN 24 H, Creatinine 1.07 H, Estim Creat Clear Calc 33.17, Est GFR (MDRD) Af Amer 63, Est GFR (MDRD) Non-Af 52 L, BUN/Creatinine Ratio 22.4 H, Glucose 189 H, Calcium 9.4, Troponin I High Sens 7 05/10/22 13:30: Urine Color Yellow, Urine Clarity Sl. Cloudy, Urine pH 6.0, Ur Specific [place] 1.020, Urine Protein 15 H, Urine Glucose (UA) Normal, Urine Ketones Negative, Urine Occult Blood 10 H, Urine Nitrite Negative, Urine Bilirubin Negative, Urine Urobilinogen Normal, Ur Leukocyte Esterase 100 H, Urine RBC 0 SEEN, Urine WBC 0-5 SEEN, Ur Squamous Epith Cells 0-5 SEEN, Amorphous Sediment 1+, Urine Bacteria 0 SEEN, Urine Mucus 0 SEEN Charges/Coding Visit Charges OBSV E&M: 49419 Initial observation care L3 Procedures Hospitalists Procedures: 12382 Advncd Care Plan 30 Min
[2022-05-10 16:15] LABS: Magnesium 2.2 mg/dL (1.6-2.6); Phosphorus 3.3 mg/dL (2.5-4.9)
[2022-05-10] MEDS: Lactated Ringers 1,000 ML 100 ML IV (18:17)
[2022-05-10] MEDS: Menthol/Lanolin/Calamine/Znox 113 GM Tube 1 APPLIC TOPICAL (20:35)
[2022-05-10] MEDS: Lisinopril 10 MG Tablet PO (20:37)
[2022-05-10] MEDS: traZODone 50 MG Tablet PO (20:37)
[2022-05-10] MEDS: APIXABAN 5 MG TABLET PO (20:38)
[2022-05-10] MEDS: Senna/Docusate Sodium 1 Tablet 2 TABLET PO (20:38)
[2022-05-11] VITALS (7 sets, daily range): BP systolic 113–171; BP diastolic 64–106; PULSE 79–97; RESP 14–18; TEMP 36.2–36.7; O2SAT 90–96
[2022-05-11] MEDS: 0.9% Saline Lock 10 ML Syringe IV ×2 (04:20→05:33)
[2022-05-11] MEDS: hydrALAZINE 20 MG/ML Vial 10 MG IV (04:20)
[2022-05-11] MEDS: Levothyroxine 50 MCG Tablet PO (05:16)
[2022-05-11] MEDS: Acetaminophen 325 MG Tablet 650 MG PO ×2 (05:16→13:19)
[2022-05-11] MEDS: Ondansetron 4 MG/2 ML Vial IV (05:33)
--- NOTE | 2022-05-11 05:55 | ECHOD_ITS ---
Reason For Study: SYNCOPE/NEAR SYNCOPE Procedure This was a 2D Doppler, Color Flow transthoracic echocardiogram. The study was technically difficult. Exam performed portable in patient room. Left Ventricle Normal LV size. Left ventricular systolic function is hyperdynamic. The estimated ejection fraction is 75 %. No evidence for diastolic dysfunction. No regional wall motion abnormalities noted. Right Ventricle Normal RV size. Normal systolic function. Atria Normal left atrium. Normal right atrium. No doppler evidence for ASD. Mitral Valve There is mild mitral annular calcification. Extension of the mitral and calcification on the base of the posterior mitral valve leaflet. Tricuspid Valve Normal tricuspid valve. Aortic Valve Trisinus/trileaflet aortic valve. Normal aortic valve. Pulmonic Valve The pulmonic valve is not well visualized. Great Vessels Normal sized aortic root. Pericardium/Pleural No pericardial effusion. MMode/2D Measurements & Calculations LVIDd: 3.9 cm IVSd: 1.1 cm Ao root diam: 3.0 cm LVIDs: 2.7 cm LVPWd: 1.2 cm FS: 29.4 % LAV(MOD-bp): 39.2 ml LA A4 area: 16.1 cm2 LA dimension(2D): 2.7 cm LAV(MOD-bp) Indexed: 23.3 ml/m2 LAV(MOD-sp2): 40.4 ml LAV(MOD-sp4): 37.8 ml Time Measurements MV dec time: 0.26 sec Doppler Measurements & Calculations MV E max clifford: 58.5 cm/sec Lat Peak E' Clifford: 5.7 cm/sec Med Peak E' Clifford: 5.0 cm/sec MV A max clifford: 87.5 cm/sec E/E' lat: 10.3 E/E' med: 11.7 MV E/A: 0.67 MV dec slope: 222.2 cm/sec2 Ao V2 max: 154.6 cm/sec LV V1 max: 123.2 cm/sec Ao max P.6 mmHg LV V1 max P.1 mmHg Ao V2 mean: 103.4 cm/sec Ao mean P.9 mmHg Ao V2 VTI: 27.8 cm PA V2 max: 84.9 cm/sec ECHO/Echo Complete Interpretation Summary The study was technically difficult. Left ventricular systolic function is hyperdynamic. The estimated ejection fraction is 75 %. There is mild mitral annular calcification. Extension of the mitral and calcification on the base of the posterior mitral v alve leaflet. No evidence for diastolic dysfunction. Ordering Physician: Oscar Mcginnis Referring Physician: Boy Miller Performed By: Hawa Yates, ADRIA, RVT
[2022-05-11 06:25] LABS: Absolute Lymphocyte Count 1.66 X10^3/uL (0.83-4.51); Absolute Neutrophil Count 7.2 X10^3/uL (2.0-7.7); Basophil# 0.04 X10^3/uL; Basophil% 0.4 % (0-1); Eosinophil# 0.33 X10^3/uL; Eosinophils% 3.3 % (0-5); Hematocrit 40.2 % (37-47); Lymphocyte # 1.66 X10^3/ul (0.83-4.51); Lymphocyte % 16.6 % (19-41); Mean Corp Hgb Conc 32.3 g/dL (32-36); Mean Corpuscular Hgb 29.3 pg (27.0-32.0); Mean Corpuscular Volume 90.5 fL (81-99); Mean Platelet Vol. 10.6 fl (6.2-12.0); Monocyte# 0.75 X10^3/uL; Monocyte% 7.5 % (0-10); NRBC Flagged by Analyzer 0 % (0-5); Neutrophil # 7.17 X10^3/uL (2.7-7.7); Neutrophil % 71.8 % (47-70); Platelet Count 190 K/mm3 (150-450); RBC Distribution Width CV 12.6 % (11.6-14.6); RBC Distribution Width SD 41.8 fl (35.1-43.9); Red Blood Count 4.44 M/mm3 (4.2-5.4)
[2022-05-11 07:17] LABS: Anion Gap 7 (5-15); BUN 23 mg/dL (7-18); BUN/Creat Ratio 24.3 RATIO (10-20); Calcium,Total 8.8 mg/dL (8.5-10.1); Chloride 109 mmol/L (98-107); Creatinine, Serum 0.95 mg/dL (0.55-1.02); EST Glomerular Filtration Rate 60 mL/min (>60); Est Glom Filt Rate - Afr Amer 73 mL/min (>60); Estimated Creatinine Clearance 40.79 ml/min; Glucose 134 mg/dL (74-106); Potassium 3.5 mmol/L (3.5-5.1); Sodium Level 141 mmol/L (136-145); Thyroid Stim Hormone (TSH) 1.91 uIU/mL (0.358-3.74)
[2022-05-11] MEDS: APIXABAN 5 MG TABLET PO (08:18)
[2022-05-11] MEDS: Senna/Docusate Sodium 1 Tablet 2 TABLET PO (08:18)
[2022-05-11] MEDS: Metoprolol Tartrate 25 MG Tablet PO (08:19)
[2022-05-11] MEDS: Pantoprazole Sodium 40 MG Tablet PO (08:19)
[2022-05-11] MEDS: Lisinopril 10 MG Tablet PO (08:20)
[2022-05-11] MEDS: Paroxetine 20 MG Tablet PO (08:28)
[2022-05-11] MEDS: traZODone 100 MG Tablet PO (08:28)
--- NOTE | 2022-05-11 10:51 | CASEMGMT ---
SW notified patient's son and daughter that patient's Healthcare Power of Desk Lieutenant and a Healthcare Living Will are not on file at [facility]. Patient's daughter said she has them in the care and she can bring them in. Patient's daughter Kizzy is patient's Healthcare Power of Desk Lieutenant. Fawn Gómez COMMUNICATION ELECTRONIC TECHNICIAN LUCIEN
--- NOTE | 2022-05-11 11:29 | TREXTCAR_ITS ---
Diet Diet Order/Speech Therapy: 05/10/22 16:55 Diet: Cardiac - Heart Healthy Food consistency:: Regular Liquid Consistency:: Regular/Thin Routine Orders/Code Status Enema Type: Fleetz Enema Frequency: Daily PRN Suppository Type: Dulcolax 10mg Suppository Frequency: Daily PRN Code Status: DNRCC-A (no intubation) Suggestions for Active Care Change Position every (hours): 2 Times a day to sit in chair: 3 Therapies Physical Therapy: Eval and Treat Occupational Therapy: Eval and Treat Problem/Diagnosis (1) Near syncope: Status: Acute Code(s): R55 - Syncope and collapse Allergies/Procedures Done in Hospital Allergies bupropion [From Wellbutrin] Allergy (Verified 05/10/22 12:35) Unknown carbidopa [From Sinemet] Allergy (Verified 05/10/22 12:35) Unknown celecoxib [From Celebrex] Allergy (Verified 05/10/22 12:35) Nausea codeine Allergy (Verified 05/10/22 12:35) Unknown levodopa [From Sinemet] Allergy (Verified 05/10/22 12:35) Unknown nitrofurantoin [From Macrobid] Allergy (Verified 05/10/22 12:35) Unknown phenytoin [From Dilantin] Allergy (Verified 05/10/22 12:35) Unknown prochlorperazine [From Compazine] Allergy (Verified 05/10/22 12:35) Unknown Sulfa (Sulfonamide Antibiotics) Allergy (Verified 05/10/22 12:35) Unknown sulfamethoxazole [From Bactrim] Allergy (Verified 05/10/22 12:35) Unknown trimethoprim [From Bactrim] Allergy (Verified 05/10/22 12:35) Unknown Procedures: 2-D Echocardiogram Type of Care/Length of Stay Estimated LOS: Convalescent Care Less Than 30 days Type of Care Needed: Skilled Rehab Potential: Fair Prognosis: Fair Additional Orders/Day of Discharge H&P will serve as current which was dated: 05/10/22 Day of Discharge: 05/11/22 Discharge Plan Admission Admit Date/Time: 05/10/22 15:46 Primary Reason for Your Visit: Recurrent fall, debility Attending Provider: German Castro Primary Care Provider: Boy Miller Consulting Providers: Oscar Mcginnis Discharge Orders/Prescriptions Prescriptions: Continued pravastatin 40 MG tablet 40 mg PO DAILY lisinopril 5 MG tablet 5 mg PO BID metoprolol tartrate 25 MG tablet 25 mg PO DAILY levothyroxine 50 MCG tablet 50 mcg PO DAILY Eliquis 5 MG tablet 5 mg PO BID Label Comments: TAKE ONE TABLET BY MOUTH TWICE DAILY ondansetron 4 MG tablet,disintegrating 4 mg PO Q8H PRN PRN (Reason: Nausea) trazodone 100 mg tablet 100 mg PO DAILY Label Comments: take 1 tablet by mouth nightly paroxetine HCl 20 mg tablet 20 mg PO DAILY Referrals / Follow Up: Byo Miller MD [Primary Care Provider] - In 1 Week Disposition Disposition (needs filled in before D/C Order can be placed): [facility]
--- NOTE | 2022-05-11 11:39 | PCM.DC.SUM ---
Documented by User: Roxana Bell NP, CYLINDER PRESS OPERATOR HELPER-C 05/11/22 11:49 Providers Date of Admission: 05/10/22 Date of Discharge: 05/11/22 Primary Care Physician: Dr. Boy Miller MD Reason For Visit: SYNCOPE, FALL, FAILURE TO THRIVE, DEMENTIA Diagnosis Discharge Diagnosis (1) Near syncope: Status: Acute Code(s): R55 - Syncope and collapse Medications at Discharge Home Medications lisinopril 5 mg tablet 5 mg PO BID blood pressure 08/17/16 metoprolol tartrate 25 mg tablet 25 mg PO DAILY blood pressure 08/17/16 pravastatin 40 mg tablet 40 mg PO QHS cholesterol 08/17/16 levothyroxine 50 mcg tablet 50 mcg PO DAILY thyroid 07/12/18 apixaban 5 mg tablet (Eliquis) 5 mg PO BID DVT 10/18/18 ondansetron 4 mg disintegrating tablet 4 mg PO Q8H PRN PRN Nausea 05/10/22 paroxetine HCl 20 mg tablet 20 mg PO DAILY depression 05/10/22 trazodone 100 mg tablet 100 mg PO DAILY SLEEP 05/10/22 Hospital Course Operations None Procedures 2-D Echocardiogram Summary of Care Provided Hospital Course: Patient is a 81-year-old female admitted 05/10/2022 due to questionable syncope with recurrent fall/debility. 1. Recurrent fall, debility-questionable syncope. Patient's son whom she lives with states patient has a history of dementia and has been slowly declining. He reports intermittent falls at home. He states patient lowered herself to the ground and did not pass out. Lab work unremarkable. Urinalysis and chest x-ray unremarkable. Brain CT with chronic small vessel ischemic changes and volume loss. No acute process. Echocardiogram completed, report pending and will be reviewed prior to discharge. TCU at discharge for ongoing therapy. Son discussing eventual long-term placement. Follow-up with PCP upon discharge from TCU. 2. CAD-on Eliquis, metoprolol, statin. 3. 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 Unclear if patient has had multiple episodes or how recent DVT/PE occurred. Per records, patient was on Eliquis during admission in 2019. If there is not an indication for long-term anticoagulation, recommend this be further evaluated on an outpatient basis given recurrent falls to weigh benefits/risks. 4. Hypothyroidism-continue Synthroid. 5. Abdominal aortic aneurysm-continue outpatient surveillance. 6. Anxiety/depression-on paroxetine, trazodone. 7. Alzheimer's dementia-not on medication regimen. Encouraged outpatient follow-up. 8. Chronic COPD-no exacerbation. As needed albuterol aerosol. Patient seen and examined prior to discharge. Physical assessment as noted below. Patient is stable for discharge with follow up recommendations as noted above. This patient was seen by SARAH Arroyo under the supervision of Dr. Castro. Time spent examining patient, reviewing data and subsequent management of care: 23 minutes Physical Exam Const alert Orientation / Consciousness: oriented to person and oriented to place HEENT normocephalic and moist oral mucous membranes Eyes PERRL, EOMs intact bilaterally and conjunctivae normal Neck no lymphadenopathy Resp normal respiratory effort and clear to auscultation bilaterally Cardio regular rate, regular rhythm and no murmurs Peripheral Pulses: pulses 2+ throughout GI normal to inspection, nondistended, normoactive bowel sounds, non-tender and non-distended Extremity normal to inspection Skin no rashes or lesions noted Lesions: no lesions Rashes: no rashes Trauma: no lacerations or abrasions Neuro CN's II-XII intact bilaterally, no focal motor deficits, no sensory deficits noted and deep tendon reflexes 2+ bilaterally Psych mental status grossly normal and affect normal Weight / BMI Weight Weight: 140 lb Body Mass Index (BMI) 24.0 ABG / Lab / Microbiology Data Result Diagrams: 05/11/22 06:14 05/11/22 06:14 Laboratory: Laboratory Results - last 24 hr 05/10/22 12:45: WBC 8.1, RBC 4.47, Hgb 13.1, Hct 41.1, MCV 91.9, MCH 29.3, MCHC 31.9 L, RDW Std Deviation 42.6, RDW Coeff of Jose M 12.6, Plt Count 194, MPV 10.7, Immature Gran % (Auto) 0.200, Neut % (Auto) 66.7, Lymph % (Auto) 22.2, [place] % (Auto) 6.3, Eos % (Auto) 4.0, Baso % (Auto) 0.6, Absolute Neuts (auto) 5.4, Absolute Lymphs (auto) 1.79, Nucleated RBC % 0 05/10/22 12:45: Sodium 142, Potassium 4.4, Chloride 110 H, Carbon Dioxide 28.0, Anion Gap 4 L, BUN 24 H, Creatinine 1.07 H, Estim Creat Clear Calc 33.17, Est GFR (MDRD) Af Amer 63, Est GFR (MDRD) Non-Af 52 L, BUN/Creatinine Ratio 22.4 H, Glucose 189 H, Calcium 9.4, Troponin I High Sens 7 05/10/22 12:45: Phosphorus 3.3, Magnesium 2.2 05/10/22 13:30: Urine Color Yellow, Urine Clarity Sl. Cloudy, Urine pH 6.0, Ur Specific [place] 1.020, Urine Protein 15 H, Urine Glucose (UA) Normal, Urine Ketones Negative, Urine Occult Blood 10 H, Urine Nitrite Negative, Urine Bilirubin Negative, Urine Urobilinogen Normal, Ur Leukocyte Esterase 100 H, Urine RBC 0 SEEN, Urine WBC 0-5 SEEN, Ur Squamous Epith Cells 0-5 SEEN, Amorphous Sediment 1+, Urine Bacteria 0 SEEN, Urine Mucus 0 SEEN 05/11/22 06:14: WBC 10.0, RBC 4.44, Hgb 13.0, Hct 40.2, MCV 90.5, MCH 29.3, MCHC 32.3, RDW Std Deviation 41.8, RDW Coeff of Jose M 12.6, Plt Count 190, MPV 10.6, Immature Gran % (Auto) 0.400, Neut % (Auto) 71.8 H, Lymph % (Auto) 16.6 L, [place] % (Auto) 7.5, Eos % (Auto) 3.3, Baso % (Auto) 0.4, Absolute Neuts (auto) 7.2, Absolute Lymphs (auto) 1.66, Nucleated RBC % 0 05/11/22 06:14: Sodium 141, Potassium 3.5, Chloride 109 H, Carbon Dioxide 25.0, Anion Gap 7, BUN 23 H, Creatinine 0.95, Estim Creat Clear Calc 40.79, Est GFR (MDRD) Af Amer 73, Est GFR (MDRD) Non-Af 60, BUN/Creatinine Ratio 24.3 H, Glucose 134 H, Calcium 8.8, TSH 1.91 Radiography Diagnostic Testing: Radiology Impression Brain CT 05/10/22 12:44 IMPRESSION: No acute intracranial process identified. 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 Electronically Signed: Gracia Mullen MD at 14:08 EDT , Chest X-Ray 05/10/22 13:18 IMPRESSION: No acute cardiopulmonary process identified. Electronically Signed: Gracia Mullen MD at 14:10 EDT , Meaningful Use Info Meaningful Use Diagnoses (Choose all that apply): None applicable Discharge Plan Admission Admit Date/Time: 05/10/22 15:46 Primary Reason for Your Visit: Recurrent fall, debility Attending Provider: German Castro Primary Care Provider: Boy Miller Consulting Providers: Oscar Mcginnis Discharge Orders/Prescriptions Prescriptions: Continued pravastatin 40 MG tablet 40 mg PO QHS lisinopril 5 MG tablet 5 mg PO BID metoprolol tartrate 25 MG tablet 25 mg PO DAILY levothyroxine 50 MCG tablet 50 mcg PO DAILY Eliquis 5 MG tablet 5 mg PO BID Label Comments: TAKE ONE TABLET BY MOUTH TWICE DAILY ondansetron 4 MG tablet,disintegrating 4 mg PO Q8H PRN PRN (Reason: Nausea) trazodone 100 mg tablet 100 mg PO DAILY Label Comments: take 1 tablet by mouth nightly paroxetine HCl 20 mg tablet 20 mg PO DAILY Referrals / Follow Up: Boy Miller MD [Primary Care Provider] - In 1 Week Disposition Disposition (needs filled in before D/C Order can be placed): Nursing Home Facility Documented by User: Dr. German Castro MD 05/11/22 13:38 Providers Date of Admission: 05/10/22 Reason For Visit: SYNCOPE, FALL, FAILURE TO THRIVE, DEMENTIA Diagnosis Discharge Diagnosis (1) Near syncope: Status: Acute Code(s): R55 - Syncope and collapse Medications at Discharge Home Medications lisinopril 5 mg tablet 5 mg PO BID blood pressure 08/17/16 metoprolol tartrate 25 mg tablet 25 mg PO DAILY blood pressure 08/17/16 pravastatin 40 mg tablet 40 mg PO QHS cholesterol 08/17/16 levothyroxine 50 mcg tablet 50 mcg PO DAILY thyroid 07/12/18 apixaban 5 mg tablet (Eliquis) 5 mg PO BID DVT 10/18/18 ondansetron 4 mg disintegrating tablet 4 mg PO Q8H PRN PRN Nausea 05/10/22 paroxetine HCl 20 mg tablet 20 mg PO DAILY depression 05/10/22 trazodone 100 mg tablet 100 mg PO DAILY SLEEP 05/10/22 ABG / Lab / Microbiology Data Result Diagrams: 05/11/22 06:14 05/11/22 06:14 Discharge Plan Admission Admit Date/Time: 05/10/22 15:46 Primary Reason for Your Visit: Recurrent fall, debility Attending Provider: German Castro Primary Care Provider: Boy Miller Consulting Providers: Oscar Mcginnis Discharge Orders/Prescriptions Prescriptions: Continued pravastatin 40 MG tablet 40 mg PO QHS lisinopril 5 MG tablet 5 mg PO BID metoprolol tartrate 25 MG tablet 25 mg PO DAILY levothyroxine 50 MCG tablet 50 mcg PO DAILY Eliquis 5 MG tablet 5 mg PO BID Label Comments: TAKE ONE TABLET BY MOUTH TWICE DAILY ondansetron 4 MG tablet,disintegrating 4 mg PO Q8H PRN PRN (Reason: Nausea) trazodone 100 mg tablet 100 mg PO DAILY Label Comments: take 1 tablet by mouth nightly paroxetine HCl 20 mg tablet 20 mg PO DAILY Referrals / Follow Up: Boy Miller MD [Primary Care Provider] - In 1 Week Disposition Disposition (needs filled in before D/C Order can be placed): Nursing Home Facility Charges/Coding Addendum Addendum: Addendum: Dr. Castro I personally examined the patient and reviewed the chart. I agree with the above. 81-year-old female presented from home secondary to dementia and a possible syncopal episode. She has not been a great historian secondary to a diagnosis of Alzheimer's dementia that she was found to have about a year ago. Per report her son had checked on her on the day of admission and found her on the floor and he was not sure as to the events he is not 100% sure that she even passed out. Syncopal work-up was unremarkable, urinalysis and chest x-ray were normal. Brain CT was negative for any type of head bleed and echocardiogram is currently pending. Plan will be for discharge to the transitional care unit for therapy and then family will need assistance in finding her long-term placement given her Alzheimer's dementia diagnosis. Clinical time spent in all aspects of patient care including discharge plannin minutes Visit Charges OBSV E&M: 12654 Observation care discharge
--- NOTE | 2022-05-11 12:13 | CASEMGMT ---
Nurse Practitioner Roxana notified SW that patient's family would like placement. SW spoke with patient's son and daughter and they confirmed they would like placement. SW provided a list of SNF providers including quality and resource use data and consistent with the patient?s preferred geographic region, medical needs, and insurance network. This list was printed from [employer]. Patient and family's first choice is [facility]. SW asked them to review the list in case TCU does not have any beds available. ROSIE spoke with [facility] regarding referral. TCU can accept patient. ROSIE notified CASH MANAGEMENT ASSOCIATE, patient and her family, RN, and litigation legal secretary. All in agreement with d/c plan. Plan: d/c to [facility] under skilled level of care. Fawn MCGRAW
--- NOTE | 2022-05-11 14:22 | PHA.DC.MR ---
Pharmacy Service has performed discharge medication reconciliation for this patient upon transfer to TCU. Home Medications lisinopril 5 mg tablet 5 mg PO BID blood pressure 08/17/16 metoprolol tartrate 25 mg tablet 25 mg PO DAILY blood pressure 08/17/16 pravastatin 40 mg tablet 40 mg PO QHS cholesterol 08/17/16 levothyroxine 50 mcg tablet 50 mcg PO DAILY thyroid 07/12/18 apixaban 5 mg tablet (Eliquis) 5 mg PO BID DVT 10/18/18 ondansetron 4 mg disintegrating tablet 4 mg PO Q8H PRN PRN Nausea 05/10/22 paroxetine HCl 20 mg tablet 20 mg PO DAILY depression 05/10/22 trazodone 100 mg tablet 100 mg PO DAILY SLEEP 05/10/22 The patient's discharge medication list was reviewed for discrepancies and discrepancies were resolved.
== END 2022-05-11 11:34 ==
LOC: ED 15:51 → PCU 15:59
PROVIDERS: Admitting Provider Internal Medicine; Emergency Provider Emergency Medicine; PCP Family Medicine; Visit Provider Family Medicine
DX: R55 Syncope and collapse (principal); G30.9 Alzheimer's disease, unspecified; F02.80 Dementia in other diseases classified elsewhere, unspecified severity, without behavioral disturbance, psychotic disturbance, mood disturbance, and anxiety; J44.9 Chronic obstructive pulmonary disease, unspecified; E78.00 Pure hypercholesterolemia, unspecified; R30.0 Dysuria; R32 Unspecified urinary incontinence; R53.81 Other malaise; F41.9 Anxiety disorder, unspecified; E03.9 Hypothyroidism, unspecified; R62.7 Adult failure to thrive; I25.10 Atherosclerotic heart disease of native coronary artery without angina pectoris; I10 Essential (primary) hypertension; Z86.711 Personal history of pulmonary embolism; Z86.718 Personal history of other venous thrombosis and embolism; I25.2 Old myocardial infarction; Z79.899 Other long term (current) drug therapy; Z79.01 Long term (current) use of anticoagulants; Z79.82 Long term (current) use of aspirin
CPT/HCPCS: 36415; 70450; 71045; 80048; 81001; 83735; 84100; 84443; 84484; 85025; 87086; 87088; 87426; 93005; 93306; 96361; 96374; 96375; 97162; 97166; 99218; 99285; J7120; P9612; A4216; G0378; J2405

== ENCOUNTER 2022-05-11 14:23 | Inpatient (IN) | payer MEDICARE, BC, SELFPAY ==
[2022-05-11 14:31] VITALS: BP 120/61; PULSE 64; RESP 20; TEMP 37.3; O2SAT 91
[2022-05-11 16:01] VITALS: BMI 26.3
[2022-05-11] MEDS: Lisinopril 5 MG Tablet PO (18:33)
[2022-05-11] MEDS: APIXABAN 5 MG TABLET PO (18:33)
--- NOTE | 2022-05-11 19:52 | HP.PCM_ITS ---
HPI - General General Date of Admission: 05/11/22 Date of Service: 05/11/22 Chief Complaint: Here for rehab. HPI Narrative 05/10/2022 MARÍA ELENA BRANDON, is a 81 Female who presents to [facility] Emergency Department with generalized illness. Lightheaded, dizzy, passing out, hit head last week. Dysuria x 1 week, worse last 2 days. Daughter found patient at home undressed, lying on floor in urine. Bloodwork okay, Chest X-ray okay, CT head okay, Urinalysis okay, urine culture sent. Orthostatics okay. 05/10/2022 Admit to Hospital. PT/OT for debility. 05/11/2022 Echo Left ventricular systolc function hyperdynamic. EF 75%. Negative diastolic dysfunction. 05/11/2022 Admit to TCU with debility, here for rehabilitation, strengthening, prior to extended care facility placement. [facility] Medical History Heart attack High cholesterol HTN (hypertension) Overactive bladder Home Medications lisinopril 5 mg tablet 5 mg PO BID blood pressure 08/17/16 [History Last Taken 05/11/22] metoprolol tartrate 25 mg tablet 25 mg PO DAILY blood pressure 08/17/16 [History Last Taken 05/11/22] pravastatin 40 mg tablet 40 mg PO QHS cholesterol 08/17/16 [History Last Taken 05/11/22] levothyroxine 50 mcg tablet 50 mcg PO DAILY thyroid 07/12/18 [History Last Taken 05/11/22] apixaban 5 mg tablet (Eliquis) 5 mg PO BID DVT 10/18/18 [History Last Taken 05/11/22] ondansetron 4 mg disintegrating tablet 4 mg PO Q8H PRN PRN Nausea 05/10/22 [History Last Taken Unknown] paroxetine HCl 20 mg tablet 20 mg PO DAILY depression 05/10/22 [History Last Taken Unknown] trazodone 100 mg tablet 100 mg PO DAILY SLEEP 05/10/22 [History Last Taken 05/11/22] Allergy/AdvReac Type Severity Reaction Status Date / Time bupropion [From Wellbutrin] Allergy Unknown Verified 05/10/22 12:35 carbidopa [From Sinemet] Allergy Unknown Verified 05/10/22 12:35 celecoxib [From Celebrex] Allergy Nausea Verified 05/10/22 12:35 codeine Allergy Unknown Verified 05/10/22 12:35 levodopa [From Sinemet] Allergy Unknown Verified 05/10/22 12:35 nitrofurantoin Allergy Unknown Verified 05/10/22 12:35 [From Macrobid] phenytoin [From Dilantin] Allergy Unknown Verified 05/10/22 12:35 prochlorperazine Allergy Unknown Verified 05/10/22 12:35 [From Compazine] Sulfa (Sulfonamide Allergy Unknown Verified 05/10/22 12:35 Antibiotics) sulfamethoxazole Allergy Unknown Verified 05/10/22 12:35 [From Bactrim] trimethoprim [From Bactrim] Allergy Unknown Verified 05/10/22 12:35 Social History (Updated 05/11/22 @ 19:[address] Augustin Toledo MD) household members: family Smoking Status: Former smoker alcohol intake: never substance use type: does not use ROS Constitutional Constitutional: Denies chills, fever(s) or weight gain ENT HEENT: Denies headache(s), nasal congestion or nasal discharge Cardiovascular Cardiovascular: Denies chest pain or palpitations Respiratory/Chest Respiratory/Chest: Denies cough, excessive phlegm production or shortness of breath with exertion Gastrointestinal Gastrointestinal: Denies abdominal pain, nausea or vomiting Genitourinary Genitourinary: Denies dysuria Musculoskeletal Musculoskeletal: Denies joint pain or joint swelling Integumentary Integumentary: Denies rash or wounds Neurologic Neurologic: Denies focal weakness, numbness or tingling Psychiatric Psychiatric: Denies anxiety, auditory hallucinations, depression, homicidal ideation or suicidal ideation Vital Signs Vital Signs Vital Signs: 05/11/22 14:31 Temperature 99.1 F Temperature Source Temporal Pulse Rate 64 Respiratory Rate 20 H Blood Pressure 120/61 Blood Pressure Mean 80 Blood Pressure Source Monitor Blood Pressure Position Supine Blood Pressure Location Left Arm Pulse Ox 91 Oxygen Delivery Method Room Air Weight Weight: 65.374 kg Body Mass Index (BMI) 26.3 Physical Exam Const alert General Appearance: cooperative HEENT normocephalic Eyes PERRL and EOMs intact bilaterally Neck supple, no JVD and no carotid bruits Resp normal respiratory effort, normal air movement and clear to auscultation bilaterally Cardio regular rate and regular rhythm GI normal to inspection, nondistended, normoactive bowel sounds, non-tender and non-distended Extremity normal capillary refill General Extremity: Negative for edema Skin no rashes or lesions noted General Skin Exam: no breakdown Psych affect normal Appearance: appropriate Assessment & Plan Assessment/Plan (1) Debility: (2) Weakness: (3) Dizziness: (4) Failure to thrive: (5) Coronary artery disease: (6) Abdominal aortic aneurysm: (7) Deep vein thrombosis: (8) Pulmonary embolism: (9) Hyperlipidemia: (10) Restless leg syndrome: (11) Hypothyroidism: (12) Gastroesophageal reflux disease: (13) Nausea: (14) Anxiety: (15) Insomnia: PLAN: Plan 81 year old female with below past medical history hospitalized for weakness, admitted to TCU with debility, here for rehabilitation, strengthening, prior to extended care facility placement. * Debility - PT/OT. * Pain - Tylenol 1000mg q6h prn pain (1-10). * Bowel - Senna/colace 1 tablet bid, Dulcolax 10mg daily prn. * Adult immunization - Administer pneumonia vaccine, covid19 vaccine, flu vaccine as appropriate. * DVT prophylaxis - Not necessary, on Eliquis. * DVT/PE - Eliquis 5mg bid. * Nutrition - Ensure Enlive 120ml 4x/day. * Hypothyroidism - Levothyroxine 50mcg daily. * Coronary Artery Disease - Metoprolol 25mg daily, Lisinopril 5mg bid, Eliquis 5mg bid. * Nausea - Zofran odt 4mg q8h prn. * Depression - Paroxetine 20mg daily, stable chronic long-term use, GDR not recommended. * Hyperlipidemia - Pravastatin 40mg qhs. * Insomnia - Trazodone 100mg qhs, stable chronic long-term use, GDR not recommended.
[2022-05-11] MEDS: traZODone 100 MG Tablet PO (21:02)
[2022-05-11] MEDS: Pravastatin 40 MG Tablet PO (21:02)
[2022-05-12 05:49] LABS: Absolute Lymphocyte Count 2.32 X10^3/uL (0.83-4.51); Absolute Neutrophil Count 4.2 X10^3/uL (2.0-7.7); Basophil# 0.05 X10^3/uL; Basophil% 0.7 % (0-1); Eosinophil# 0.33 X10^3/uL; Eosinophils% 4.3 % (0-5); Hematocrit 37.4 % (37-47); Lymphocyte # 2.32 X10^3/ul (0.83-4.51); Lymphocyte % 30.3 % (19-41); Mean Corp Hgb Conc 32.1 g/dL (32-36); Mean Corpuscular Hgb 29.8 pg (27.0-32.0); Mean Corpuscular Volume 92.8 fL (81-99); Mean Platelet Vol. 10.7 fl (6.2-12.0); Monocyte# 0.75 X10^3/uL; Monocyte% 9.8 % (0-10); NRBC Flagged by Analyzer 0 % (0-5); Neutrophil # 4.19 X10^3/uL (2.7-7.7); Neutrophil % 54.6 % (47-70); Platelet Count 194 K/mm3 (150-450); RBC Distribution Width CV 12.7 % (11.6-14.6); RBC Distribution Width SD 43.6 fl (35.1-43.9); Red Blood Count 4.03 M/mm3 (4.2-5.4); White Blood Count 7.7 K/mm3 (4.4-11.0)
[2022-05-12] MEDS: Menthol/Lanolin/Calamine/Znox 113 GM Tube 1 APPLIC TOPICAL ×2 (06:19→17:10)
[2022-05-12] MEDS: APIXABAN 5 MG TABLET PO ×2 (06:20→18:34)
[2022-05-12] MEDS: Levothyroxine 50 MCG Tablet PO (06:20)
[2022-05-12] MEDS: Paroxetine 20 MG Tablet PO (06:20)
[2022-05-12] MEDS: Lisinopril 5 MG Tablet PO ×2 (06:20→18:33)
[2022-05-12 06:21] VITALS: PULSE 74
[2022-05-12] MEDS: Metoprolol Tartrate 25 MG Tablet PO (06:21)
[2022-05-12 06:26] LABS: Anion Gap 5 (5-15); BUN 28 mg/dL (7-18); BUN/Creat Ratio 25.5 RATIO (10-20); Calcium,Total 8.7 mg/dL (8.5-10.1); Chloride 111 mmol/L (98-107); EST Glomerular Filtration Rate 51 mL/min (>60); Est Glom Filt Rate - Afr Amer 61 mL/min (>60); Estimated Creatinine Clearance 32.26 ml/min; Glucose 98 mg/dL (74-106); Sodium Level 144 mmol/L (136-145)
[2022-05-12] MEDS: Tuberculin,Purif.prot.deriv. 50 TU/ML Vial 0.1 ML ID (09:37)
[2022-05-12 09:58] VITALS: PULSE 74; RESP 16; O2SAT 98
--- NOTE | 2022-05-12 12:51 | CASEMGMT ---
Addendum entered by Dorothy Gonzalez 05/19/22 14:57: Late entry: during below conversation with dtr, SW inquired about code status. Dtr confirmed full code. SW contacted dtr this date to verify - pt confirms pt's wishes are to be resuscitated if possible, but not on life support. Living will is on pts chart to follow. Original Note: Social Work Pt unable to complete initial assessment r/t cognition. SW spoke with dtr. Dtr states she is HCPOA but documents not on file. SW asked dtr to provide documents - dtr agrees. Dtr expressed concerns with pt discharging home. Dtr states pts son, Sharad, lives with pt, but works dry food products mixer and does not feel comfortable assisting with personal care. Dtr reports to pt having poor hygiene, incontinent, unsafe with cooking, and has bed bugs at home. Dtr wants pt to DC to a SNF LTC. SW educated to assisting dtr with DC process. Discussed financial liability with TCU and LTC SNF. Dtr states pt has some funds in the bank, but no assets, and has SS and pension for monthly income. Pt may need to get QIT prior to qualification. Suggested for dtr to complete Medicaid application for SW to submit and choose SNFs. Dtr agreeable. Emailed dtr [place] application. Dtr requested SNF list via text. SW sent SNF list of providers including quality and resource use data and consistent with the patient?s preferred geographic region, medical needs, and insurance network via [employer]. Dtr appreciative. SW to continue to follow. TORRI Olivera SHIRT IRONER SUPERVISOR
[2022-05-12 14:33] VITALS: BP 107/64; PULSE 85; RESP 16; TEMP 36.8; O2SAT 92
--- NOTE | 2022-05-12 15:59 | NURSING ---
Patient's family notified of covid positive staff member
--- NOTE | 2022-05-12 17:30 | NURSING ---
Patient is beginning to get confused. She is stating she does not know why she is here. Educated that she is her for strengthening prior to discharge. Patient states that she does not need to get stronger, and that she does not want to be here. Patient was reoriented to surroundings and is already aware of who she is and the date.
[2022-05-12] MEDS: traZODone 100 MG Tablet PO (20:24)
[2022-05-12] MEDS: Pravastatin 40 MG Tablet PO (20:24)
[2022-05-13 05:51] VITALS: BP 156/66; PULSE 82
[2022-05-13] MEDS: Metoprolol Tartrate 25 MG Tablet PO (05:51)
[2022-05-13] MEDS: Lisinopril 5 MG Tablet PO ×2 (05:52→18:14)
[2022-05-13] MEDS: Levothyroxine 50 MCG Tablet PO (05:52)
[2022-05-13] MEDS: Menthol/Lanolin/Calamine/Znox 113 GM Tube 1 APPLIC TOPICAL ×2 (05:52→18:14)
[2022-05-13] MEDS: Paroxetine 20 MG Tablet PO (05:52)
[2022-05-13] MEDS: APIXABAN 5 MG TABLET PO ×2 (05:52→18:14)
--- NOTE | 2022-05-13 13:00 | CASEMGMT ---
Social Work Received preferences via [facility]. 1. [facility], 2. [place], 3. [place], 4. [facility], 5. [place]. However, dtr called and requested to switch [place] to W. SW agreed. SW to send referrals next week after therapy has some time to work with pt. SW to continue to follow. Dorothy Gonzalez, TORRI CRATE BUILDER
[2022-05-13 14:41] VITALS: BP 143/62; PULSE 68; RESP 14; TEMP 36.4; O2SAT 98
--- NOTE | 2022-05-13 16:09 | NURSING ---
Notified pt son Sharad that a pt tested postive for covid on TCU.
[2022-05-13] MEDS: Senna/Docusate Sodium 1 Tablet PO (18:14)
[2022-05-13] MEDS: Pravastatin 40 MG Tablet PO (19:52)
[2022-05-13] MEDS: Acetaminophen 500 MG Tablet 1000 MG PO (19:52)
[2022-05-13] MEDS: traZODone 100 MG Tablet PO (19:53)
[2022-05-13 20:00] VITALS: O2SAT 96
[2022-05-14] MEDS: APIXABAN 5 MG TABLET PO ×2 (06:55→17:19)
[2022-05-14 06:56] VITALS: BP 112/69; PULSE 88
[2022-05-14] MEDS: Lisinopril 5 MG Tablet PO ×2 (06:56→17:19)
[2022-05-14] MEDS: Levothyroxine 50 MCG Tablet PO (06:56)
[2022-05-14] MEDS: Senna/Docusate Sodium 1 Tablet PO ×2 (06:56→17:19)
[2022-05-14] MEDS: Metoprolol Tartrate 25 MG Tablet PO (06:56)
[2022-05-14] MEDS: Paroxetine 20 MG Tablet PO (06:56)
[2022-05-14] MEDS: Menthol/Lanolin/Calamine/Znox 113 GM Tube 1 APPLIC TOPICAL ×2 (06:57→17:20)
--- NOTE | 2022-05-14 07:36 | PCM.PN.DRR ---
TCU RX Drug Regimen Review Subjective: 81 YOF admitted to TCu s/p hospitalization for debility/fall. Admitted to TCU for rehabilitation and strengthening prior to discharge to an ECF. Objective: Allergies bupropion [From Wellbutrin] Allergy (Verified 05/10/22 12:35) Unknown carbidopa [From Sinemet] Allergy (Verified 05/10/22 12:35) Unknown celecoxib [From Celebrex] Allergy (Verified 05/10/22 12:35) Nausea codeine Allergy (Verified 05/10/22 12:35) Unknown levodopa [From Sinemet] Allergy (Verified 05/10/22 12:35) Unknown nitrofurantoin [From Macrobid] Allergy (Verified 05/10/22 12:35) Unknown phenytoin [From Dilantin] Allergy (Verified 05/10/22 12:35) Unknown prochlorperazine [From Compazine] Allergy (Verified 05/10/22 12:35) Unknown Sulfa (Sulfonamide Antibiotics) Allergy (Verified 05/10/22 12:35) Unknown sulfamethoxazole [From Bactrim] Allergy (Verified 05/10/22 12:35) Unknown trimethoprim [From Bactrim] Allergy (Verified 05/10/22 12:35) Unknown Current Medications Generic Name Dose Route Start Last Admin Trade Name Freq PRN Reason Stop Dose Admin Acetaminophen 1,000 mg 05/11/22 20:04 05/13/22 19:52 Acetaminophen 500 Mg Tablet PO 1,000 mg Q6H PRN PRN Administration Pain Score 1-10 Apixaban 5 mg 05/11/22 18:00 05/14/22 06:55 Apixaban 5 Mg Tablet PO 5 mg BID FELIPE Administration Bisacodyl 10 mg 05/11/22 20:04 Bisacodyl 5 Mg Tablet PO DAILY PRN PRN CONSTIPATION Calamine/Phenol 1 applic 05/12/22 06:00 05/14/22 06:57 Menthol/Lanolin/Calamine/Znox 113 Gm Tube TOPICAL 1 applic BID FELIPE Administration Protocol Levothyroxine Sodium 50 mcg 05/12/22 06:00 05/14/22 06:56 Levothyroxine 50 Mcg Tablet PO 50 mcg DAILY FELIPE Administration Lisinopril 5 mg 05/11/22 18:00 05/14/22 06:56 Lisinopril 5 Mg Tablet PO 5 mg BID FELIPE Administration Metoprolol Tartrate 25 mg 05/12/22 06:00 05/14/22 06:56 Metoprolol Tartrate 25 Mg Tablet PO 25 mg DAILY FELIPE Administration Nutritional Formula (Lactose Free) 120 ml 05/11/22 22:00 05/14/22 06:56 Ensure Enlive 120 Ml Liquid PO 120 ml 4X/DAY FELIPE Administration Ondansetron HCl 4 mg 05/11/22 14:42 Ondansetron Odt 4 Mg Tablet PO Q8H PRN PRN Nausea Paroxetine HCl 20 mg 05/12/22 06:00 05/14/22 06:56 Paroxetine 20 Mg Tablet PO 20 mg DAILY FELIPE Administration Pravastatin Sodium 40 mg 05/11/22 22:00 05/13/22 19:52 Pravastatin 40 Mg Tablet PO 40 mg QHS FELIPE Administration Senna/Docusate Sodium 1 tablet 05/12/22 06:00 05/14/22 06:56 Senna/Docusate Sodium 1 Tablet PO 1 tablet BID FELIPE Administration Trazodone HCl 100 mg 05/11/22 22:00 05/13/22 19:53 Trazodone 100 Mg Tablet PO 100 mg QHS FELIPE Administration Tuberculin PPD 0.1 ml 05/19/22 10:00 Tuberculin,Purif.Prot.Deriv. 50 Tu/Ml Vial ID 05/19/22 10:01 X1 ONE Problem List (Last Reviewed 05/11/22 @ 19:[address] Augustin Toledo MD) Insomnia (Acute) Anxiety (Acute) Nausea (Acute) Gastroesophageal reflux disease (Acute) Hypothyroidism (Acute) Restless leg syndrome (Acute) Hyperlipidemia (Acute) Pulmonary embolism (Acute) Deep vein thrombosis (Acute) Abdominal aortic aneurysm (Acute) Coronary artery disease (Acute) Failure to thrive (Acute) Dizziness (Acute) Weakness (Acute) Debility (Acute) Vital Signs Temp Pulse Resp BP Pulse Ox O2 Del Method 97.6 F L 88 14 112/69 96 Room Air 05/13/22 14:41 05/14/22 06:56 05/13/22 14:41 05/14/22 06:56 05/13/22 20:00 05/13/22 20:00 Oxygen Delivery Method Room Air Weight: 66.088 kg Body Mass Index (BMI) 26.3 Sodium 144 mmol/L (136-145) 05/12/22 05:08 Potassium 4.0 mmol/L (3.5-5.1) 05/12/22 05:08 Chloride 111 mmol/L (98-107) H 05/12/22 05:08 Carbon Dioxide 28.0 mmol/L (21.0-32.0) 05/12/22 05:08 Anion Gap 5 (5-15) 05/12/22 05:08 BUN 28 mg/dL (7-18) H 05/12/22 05:08 Creatinine 1.10 mg/dL (0.55-1.02) H 05/12/22 05:08 Est GFR (MDRD) Af Amer 61 mL/min (>60) 05/12/22 05:08 Est GFR (MDRD) Non-Af 51 mL/min (>60) L 05/12/22 05:08 BUN/Creatinine Ratio 25.5 RATIO (10-20) H 05/12/22 05:08 Glucose 98 mg/dL (74-106) 05/12/22 05:08 Assessment/Plan: 1. Pain: Tylenol 1000mg PO Q6h PRN Pain 1-10. Please continue to monitor for increased/decreased S/S pain, PRN medication usage, LFT as clinically indicated, adequate pain control. - The patient has utilized 1 dose of PRN Tylenol since admission. Pre-med pain assessment rates pain 4/10, post med pain assessment indicated minimal pain, pt with eyes closed, resting. 2. CAD, Hx PE: Lopressor 25mg PO Daily, Lisinopril 5mg PO BID, Eliquis 5mg PO BID, Pravastatin 40mg PO QHS. Please continue to monitor BP (Range 112-156/62-69), pulse (range 68-88), dizziness (given hx of falls), S/S bleeding/bruising, K+ levels (last 4 on 05/12), lipid panel annually or sooner if clinically indicated. Of note, patient is currently on appropriate dose of Eliquis based on age, weight, Scr. 3. Hypothyroidism: Synthroid 50mcg PO Daily. Please continue to monitor for S/S hypothyroidism, TSH as clinically indicated (last 1.91 on 05/11/22). 4. Nausea: Zofran 4mg PO Q8h PRN. Please continue to monitor for headache, resolution of symptoms, PRN medication use. - Patient has not required any medication use since admission date. 5. Skin Integrity: Calmoseptine topically BID. Please continue to monitor for bed sores, compromised skin integrity. 6. Bowel: Senna/Docusate 1 tab PO BID, Dulcolax 10mg PO Daily PRN. Please continue to monitor for S/S constipation and/or diarrhea. Patient had a bowel movement 05/14/22, regimen adequate at this time. Assessment/Plan for indications treated with psychotropic medications: 7. Depression/Anxiety: Paxil 20mg PO daily. Please continue to monitor for drowsiness, headache, nausea. This is a Beer's criteria medication that can cause sedation, orthostatic hypotension. Given patient's increased risk of falls and risk associated with medication, please consider a GDR if clinically indicated, thank you. 8. Insomnia: Trazodone 100mg PO QHS. Please continue to monitor for headache, dizziness, drowsiness. Given patient's risk of falls, please evaluate use to see if medication can have a GDR, thank you. Medical chart and medication regimen reviewed. The following medication irregularities or issues were identified: 1. Paxil 20mg PO daily. This is a Beer's criteria medication that can cause sedation, orthostatic hypotension. Given patient's increased risk of falls and risk associated with medication, please consider outweighing risk vs. benefit of a GDR if felt clinically appropraite, thank you. 2. Trazodone 100mg PO QHS. Please continue to monitor for headache, dizziness, drowsiness. Given patient's risk of falls, please evaluate risk vx. benefit of use to see if medication is appropriate for a GDR, thank you. Date of Note:: 05/14/22
[2022-05-14] MEDS: Pantoprazole Sodium 40 MG Tablet PO (08:50)
[2022-05-14 15:41] VITALS: BP 153/76; PULSE 79; RESP 17; TEMP 36.2; O2SAT 94
[2022-05-14] MEDS: traZODone 100 MG Tablet PO (20:11)
[2022-05-14] MEDS: Pravastatin 40 MG Tablet PO (20:11)
[2022-05-14] MEDS: Ondansetron ODT 4 MG Tablet PO (20:13)
[2022-05-14 21:00] VITALS: PULSE 92; RESP 16; O2SAT 95
[2022-05-15] MEDS: APIXABAN 5 MG TABLET PO ×2 (05:40→16:39)
[2022-05-15] MEDS: Paroxetine 20 MG Tablet PO (05:40)
[2022-05-15 05:41] VITALS: BP 126/68; PULSE 82
[2022-05-15] MEDS: Senna/Docusate Sodium 1 Tablet PO ×2 (05:41→16:39)
[2022-05-15] MEDS: Levothyroxine 50 MCG Tablet PO (05:41)
[2022-05-15] MEDS: Pantoprazole Sodium 40 MG Tablet PO (05:41)
[2022-05-15] MEDS: Lisinopril 5 MG Tablet PO ×2 (05:41→16:39)
[2022-05-15] MEDS: Metoprolol Tartrate 25 MG Tablet PO (05:41)
[2022-05-15] MEDS: Menthol/Lanolin/Calamine/Znox 113 GM Tube 1 APPLIC TOPICAL ×2 (05:45→16:39)
[2022-05-15 09:09] VITALS: PULSE 67; RESP 16; O2SAT 93
[2022-05-15 15:47] VITALS: BP 121/58; PULSE 68; RESP 16; TEMP 36.7; O2SAT 92
--- NOTE | 2022-05-15 15:59 | CASEMGMT ---
Social Work BIMS () and PHQ-9 (01/07) completed for MDS assessment. Dorothy Gonzalez MSW [employer] ANALYST
[2022-05-15] MEDS: traZODone 100 MG Tablet PO (20:34)
[2022-05-15] MEDS: Pravastatin 40 MG Tablet PO (20:34)
[2022-05-16] MEDS: Pantoprazole Sodium 40 MG Tablet PO (05:47)
[2022-05-16] MEDS: APIXABAN 5 MG TABLET PO ×2 (05:47→17:21)
[2022-05-16] MEDS: Senna/Docusate Sodium 1 Tablet PO ×2 (05:47→17:21)
[2022-05-16] MEDS: Ensure Plus High Protein 120 ML LIQUID PO ×2 (05:47→17:21)
[2022-05-16] MEDS: Paroxetine 20 MG Tablet PO (05:47)
[2022-05-16] MEDS: Levothyroxine 50 MCG Tablet PO (05:47)
[2022-05-16] MEDS: Lisinopril 5 MG Tablet PO ×2 (05:47→17:21)
[2022-05-16 05:48] VITALS: BP 168/86; PULSE 70
[2022-05-16] MEDS: Metoprolol Tartrate 25 MG Tablet PO (05:48)
[2022-05-16] MEDS: Menthol/Lanolin/Calamine/Znox 113 GM Tube 1 APPLIC TOPICAL ×2 (05:53→17:21)
[2022-05-16 14:43] VITALS: BP 103/59; PULSE 58; RESP 18; TEMP 37.5; O2SAT 92
[2022-05-16 20:00] VITALS: O2SAT 95
[2022-05-16] MEDS: Nystatin Powder 15gm Bottle 1 APPLIC TOPICAL (20:45)
[2022-05-16] MEDS: traZODone 100 MG Tablet PO (20:46)
[2022-05-16] MEDS: Pravastatin 40 MG Tablet PO (20:46)
[2022-05-17] MEDS: Menthol/Lanolin/Calamine/Znox 113 GM Tube 1 APPLIC TOPICAL ×2 (05:33→17:00)
[2022-05-17] MEDS: Pantoprazole Sodium 40 MG Tablet PO (05:33)
[2022-05-17] MEDS: Levothyroxine 50 MCG Tablet PO (05:33)
[2022-05-17] MEDS: Senna/Docusate Sodium 1 Tablet PO (05:33)
[2022-05-17] MEDS: Lisinopril 5 MG Tablet PO ×2 (05:33→17:01)
[2022-05-17 05:34] VITALS: BP 139/74; PULSE 74
[2022-05-17] MEDS: APIXABAN 5 MG TABLET PO ×2 (05:34→17:01)
[2022-05-17] MEDS: Metoprolol Tartrate 25 MG Tablet PO (05:34)
[2022-05-17] MEDS: Paroxetine 20 MG Tablet PO (05:34)
[2022-05-17] MEDS: Nystatin Powder 15gm Bottle 1 APPLIC TOPICAL ×2 (05:34→21:35)
[2022-05-17 10:00] VITALS: PULSE 61; RESP 18; O2SAT 92
[2022-05-17 14:56] VITALS: BP 107/53; PULSE 61; RESP 18; TEMP 36.6; O2SAT 92
[2022-05-17] MEDS: Ensure Plus High Protein 120 ML LIQUID PO (17:00)
[2022-05-17] MEDS: ALPRAZolam 0.25 MG Tablet PO (21:35)
[2022-05-17] MEDS: traZODone 100 MG Tablet PO (21:35)
[2022-05-17] MEDS: Pravastatin 40 MG Tablet PO (21:36)
[2022-05-18] MEDS: Ondansetron ODT 4 MG Tablet PO (05:43)
[2022-05-18] MEDS: Nystatin Powder 15gm Bottle 1 APPLIC TOPICAL ×2 (05:45→22:05)
[2022-05-18] MEDS: Menthol/Lanolin/Calamine/Znox 113 GM Tube 1 APPLIC TOPICAL ×2 (05:46→17:07)
[2022-05-18 05:51] VITALS: BP 145/93; PULSE 100
[2022-05-18] MEDS: Paroxetine 20 MG Tablet PO (05:51)
[2022-05-18] MEDS: APIXABAN 5 MG TABLET PO ×2 (05:51→17:04)
[2022-05-18] MEDS: Lisinopril 5 MG Tablet PO ×2 (05:51→17:05)
[2022-05-18] MEDS: Levothyroxine 50 MCG Tablet PO (05:51)
[2022-05-18] MEDS: Pantoprazole Sodium 40 MG Tablet PO (05:51)
[2022-05-18] MEDS: Metoprolol Tartrate 25 MG Tablet PO (05:51)
[2022-05-18] MEDS: Acetaminophen 500 MG Tablet 1000 MG PO (11:10)
[2022-05-18] MEDS: Ensure Plus High Protein 120 ML LIQUID PO ×3 (11:13→22:05)
[2022-05-18 15:01] VITALS: BP 96/58; PULSE 75; RESP 20; TEMP 37; O2SAT 90
[2022-05-18] MEDS: Senna/Docusate Sodium 1 Tablet PO (17:05)
[2022-05-18 20:20] VITALS: PULSE 71; RESP 16; O2SAT 94
[2022-05-18] MEDS: traZODone 100 MG Tablet PO (22:06)
[2022-05-18] MEDS: Pravastatin 40 MG Tablet PO (22:06)
[2022-05-19] MEDS: Menthol/Lanolin/Calamine/Znox 113 GM Tube 1 APPLIC TOPICAL ×2 (05:14→18:29)
[2022-05-19] MEDS: Nystatin Powder 15gm Bottle 1 APPLIC TOPICAL ×2 (05:14→20:37)
[2022-05-19 05:15] VITALS: BP 114/88; PULSE 83
[2022-05-19] MEDS: APIXABAN 5 MG TABLET PO ×2 (05:15→18:29)
[2022-05-19] MEDS: Metoprolol Tartrate 25 MG Tablet PO (05:15)
[2022-05-19] MEDS: Paroxetine 20 MG Tablet PO (05:16)
[2022-05-19] MEDS: Lisinopril 5 MG Tablet PO ×2 (05:16→18:30)
[2022-05-19] MEDS: Pantoprazole Sodium 40 MG Tablet PO (05:16)
[2022-05-19] MEDS: Senna/Docusate Sodium 1 Tablet PO (05:16)
[2022-05-19] MEDS: Levothyroxine 50 MCG Tablet PO (05:16)
[2022-05-19 06:01] LABS: Absolute Lymphocyte Count 2.07 X10^3/uL (0.83-4.51); Absolute Neutrophil Count 4.9 X10^3/uL (2.0-7.7); Basophil# 0.04 X10^3/uL; Basophil% 0.5 % (0-1); Eosinophil# 0.39 X10^3/uL; Eosinophils% 4.7 % (0-5); Hematocrit 37.6 % (37-47); Hemoglobin 11.9 g/dL (12.0-15.0); Lymphocyte # 2.07 X10^3/ul (0.83-4.51); Mean Corp Hgb Conc 31.6 g/dL (32-36); Mean Corpuscular Hgb 29.8 pg (27.0-32.0); Mean Corpuscular Volume 94.2 fL (81-99); Mean Platelet Vol. 10.6 fl (6.2-12.0); Monocyte# 0.82 X10^3/uL; Monocyte% 9.9 % (0-10); NRBC Flagged by Analyzer 0 % (0-5); Neutrophil # 4.94 X10^3/uL (2.7-7.7); Neutrophil % 59.5 % (47-70); Platelet Count 203 K/mm3 (150-450); RBC Distribution Width SD 44.7 fl (35.1-43.9); Red Blood Count 3.99 M/mm3 (4.2-5.4); White Blood Count 8.3 K/mm3 (4.4-11.0)
[2022-05-19 06:50] LABS: Anion Gap 5 (5-15); BUN 38 mg/dL (7-18); Calcium,Total 8.6 mg/dL (8.5-10.1); Chloride 108 mmol/L (98-107); Creatinine, Serum 1.15 mg/dL (0.55-1.02); EST Glomerular Filtration Rate 48 mL/min (>60); Est Glom Filt Rate - Afr Amer 58 mL/min (>60); Estimated Creatinine Clearance 30.86 ml/min; Glucose 90 mg/dL (74-106); Potassium 4.2 mmol/L (3.5-5.1); Sodium Level 142 mmol/L (136-145)
[2022-05-19] MEDS: Tuberculin,Purif.prot.deriv. 50 TU/ML Vial 0.1 ML ID (10:08)
[2022-05-19 10:10] VITALS: PULSE 83; RESP 18; O2SAT 95
--- NOTE | 2022-05-19 10:19 | CASEMGMT ---
Social Work Received completed Medicaid application. Faxed to TORRI Morrow
[2022-05-19 16:00] VITALS: BP 120/74; PULSE 68; RESP 16; TEMP 36.2; O2SAT 93
[2022-05-19] MEDS: traZODone 100 MG Tablet PO (20:20)
[2022-05-19] MEDS: Pravastatin 40 MG Tablet PO (20:20)
[2022-05-19] MEDS: Acetaminophen 500 MG Tablet 1000 MG PO (20:24)
[2022-05-19] MEDS: ALPRAZolam 0.25 MG Tablet PO (20:25)
[2022-05-20] MEDS: Pantoprazole Sodium 40 MG Tablet PO (06:18)
[2022-05-20] MEDS: Levothyroxine 50 MCG Tablet PO (06:18)
[2022-05-20] MEDS: APIXABAN 5 MG TABLET PO ×2 (06:18→19:02)
[2022-05-20 06:19] VITALS: BP 134/78; PULSE 72
[2022-05-20] MEDS: Lisinopril 5 MG Tablet PO ×2 (06:19→19:02)
[2022-05-20] MEDS: Metoprolol Tartrate 25 MG Tablet PO (06:19)
[2022-05-20] MEDS: Nystatin Powder 15gm Bottle 1 APPLIC TOPICAL ×2 (06:19→19:59)
[2022-05-20] MEDS: Paroxetine 20 MG Tablet PO (06:19)
[2022-05-20] MEDS: Menthol/Lanolin/Calamine/Znox 113 GM Tube 1 APPLIC TOPICAL ×2 (06:22→19:02)
--- NOTE | 2022-05-20 09:44 | NURSING ---
Oyster Grader Note: MDS section F completed.
[2022-05-20 10:00] VITALS: PULSE 84; O2SAT 93
[2022-05-20] MEDS: Ensure Clear 120 ML Liquid PO (11:46)
--- NOTE | 2022-05-20 13:00 | CASEMGMT ---
Social Work IDT met with patient and dtr via conference call for care plan meeting. Discussed patient's progress in PT/OT/ST/SN. Educated to Medicare benefit. Encouraged to contact secondary insurance to ensure copay coverage. IDT recommending 05/04 care at DC at a SNF. Dtr is in agreement and already initiated the process for SNF placement. Pt expressed understanding to DC plan. Dtr states [place], at [facility], spoke with dtr and provided dtr with checklist to gather documents. IDT recommending 1-2 weeks before DC. SW to make SNF referrals closer to DC. SW to continue to follow. TORRI Olivera WORKFORCE CONSULTANT
[2022-05-20 16:00] VITALS: BP 126/49; PULSE 74; RESP 16; TEMP 37.1; O2SAT 93
[2022-05-20 19:04] VITALS: BP 143/91; PULSE 86
[2022-05-20] MEDS: Pravastatin 40 MG Tablet PO (19:59)
[2022-05-20] MEDS: traZODone 100 MG Tablet PO (20:00)
[2022-05-20] MEDS: Acetaminophen 500 MG Tablet 1000 MG PO (20:13)
[2022-05-21] MEDS: APIXABAN 5 MG TABLET PO ×2 (05:09→17:50)
[2022-05-21] MEDS: Menthol/Lanolin/Calamine/Znox 113 GM Tube 1 APPLIC TOPICAL ×2 (05:09→17:51)
[2022-05-21 05:10] VITALS: BP 106/74; PULSE 100
[2022-05-21] MEDS: Metoprolol Tartrate 25 MG Tablet PO (05:10)
[2022-05-21] MEDS: Pantoprazole Sodium 40 MG Tablet PO (05:11)
[2022-05-21] MEDS: Nystatin Powder 15gm Bottle 1 APPLIC TOPICAL ×2 (05:11→21:13)
[2022-05-21] MEDS: Levothyroxine 50 MCG Tablet PO (05:12)
[2022-05-21] MEDS: Paroxetine 20 MG Tablet PO (05:12)
[2022-05-21] MEDS: Lisinopril 5 MG Tablet PO ×2 (05:12→17:50)
[2022-05-21 10:00] VITALS: PULSE 70; RESP 16; O2SAT 94
--- NOTE | 2022-05-21 10:21 | MDS.RN ---
Information for the mds was obtained from review of the clinical record, interview of resident, staff, and direct observation of resident's care.
[2022-05-21 14:51] VITALS: BP 124/72; PULSE 72; RESP 16; TEMP 36.7; O2SAT 95
[2022-05-21] MEDS: Pravastatin 40 MG Tablet PO (21:12)
[2022-05-21] MEDS: traZODone 100 MG Tablet PO (21:12)
[2022-05-21] MEDS: Acetaminophen 500 MG Tablet 1000 MG PO (21:12)
[2022-05-22] MEDS: Pantoprazole Sodium 40 MG Tablet PO (05:36)
[2022-05-22] MEDS: Levothyroxine 50 MCG Tablet PO (05:36)
[2022-05-22] MEDS: Paroxetine 20 MG Tablet PO (05:36)
[2022-05-22] MEDS: APIXABAN 5 MG TABLET PO ×2 (05:36→17:26)
[2022-05-22] MEDS: Lisinopril 5 MG Tablet PO ×2 (05:36→17:26)
[2022-05-22 05:37] VITALS: BP 129/69; PULSE 84
[2022-05-22] MEDS: Metoprolol Tartrate 25 MG Tablet PO (05:37)
[2022-05-22] MEDS: Menthol/Lanolin/Calamine/Znox 113 GM Tube 1 APPLIC TOPICAL ×2 (05:37→17:26)
[2022-05-22] MEDS: Nystatin Powder 15gm Bottle 1 APPLIC TOPICAL ×2 (05:42→20:59)
[2022-05-22] MEDS: Acetaminophen 500 MG Tablet 1000 MG PO (09:56)
[2022-05-22] MEDS: Ondansetron ODT 4 MG Tablet PO (11:55)
[2022-05-22 14:10] VITALS: BP 124/62; PULSE 74; RESP 16; TEMP 36.4
[2022-05-22] MEDS: Senna/Docusate Sodium 1 Tablet PO (17:26)
--- NOTE | 2022-05-22 20:35 | NURSING ---
Pt sitting up in bed, watching tv. Pleasant, talkative, joking with staff. Pt denies nausea or bloating at this time, states she had a good day and feels much better. Call light in reach, will continue to monitor.
[2022-05-22 20:50] VITALS: O2SAT 94
[2022-05-22] MEDS: traZODone 100 MG Tablet PO (20:58)
[2022-05-22] MEDS: Pravastatin 40 MG Tablet PO (20:58)
[2022-05-23] MEDS: Nystatin Powder 15gm Bottle 1 APPLIC TOPICAL ×2 (05:18→20:38)
[2022-05-23 05:19] VITALS: BP 142/88; PULSE 83
[2022-05-23] MEDS: APIXABAN 5 MG TABLET PO ×2 (05:19→16:35)
[2022-05-23] MEDS: Paroxetine 20 MG Tablet PO (05:19)
[2022-05-23] MEDS: Menthol/Lanolin/Calamine/Znox 113 GM Tube 1 APPLIC TOPICAL ×2 (05:19→16:35)
[2022-05-23] MEDS: Lisinopril 5 MG Tablet PO ×2 (05:19→16:36)
[2022-05-23] MEDS: Metoprolol Tartrate 25 MG Tablet PO (05:19)
[2022-05-23] MEDS: Levothyroxine 50 MCG Tablet PO (05:19)
[2022-05-23] MEDS: Pantoprazole Sodium 40 MG Tablet PO (05:19)
[2022-05-23] MEDS: Senna/Docusate Sodium 1 Tablet PO ×2 (05:19→16:35)
[2022-05-23 14:21] VITALS: BP 121/72; PULSE 69; RESP 16; TEMP 36.9; O2SAT 91
[2022-05-23] MEDS: Acetaminophen 500 MG Tablet 1000 MG PO (18:48)
[2022-05-23] MEDS: Pravastatin 40 MG Tablet PO (20:37)
[2022-05-23] MEDS: traZODone 100 MG Tablet PO (20:38)
[2022-05-23 20:49] VITALS: O2SAT 96
[2022-05-24] MEDS: APIXABAN 5 MG TABLET PO ×2 (05:30→17:21)
[2022-05-24] MEDS: Lisinopril 5 MG Tablet PO ×2 (05:30→17:21)
[2022-05-24] MEDS: Senna/Docusate Sodium 1 Tablet PO ×2 (05:30→17:21)
[2022-05-24] MEDS: Pantoprazole Sodium 40 MG Tablet PO (05:30)
[2022-05-24] MEDS: Levothyroxine 50 MCG Tablet PO (05:30)
[2022-05-24 05:31] VITALS: BP 146/68; PULSE 72
[2022-05-24] MEDS: Metoprolol Tartrate 25 MG Tablet PO (05:31)
[2022-05-24] MEDS: Paroxetine 20 MG Tablet PO (05:31)
[2022-05-24] MEDS: Acetaminophen 500 MG Tablet 1000 MG PO ×2 (05:31→17:22)
[2022-05-24] MEDS: Menthol/Lanolin/Calamine/Znox 113 GM Tube 1 APPLIC TOPICAL ×2 (05:34→17:24)
[2022-05-24] MEDS: Nystatin Powder 15gm Bottle 1 APPLIC TOPICAL ×2 (05:36→19:39)
[2022-05-24 15:15] VITALS: BP 132/70; PULSE 77; RESP 16; TEMP 36.3; O2SAT 91
[2022-05-24] MEDS: Pravastatin 40 MG Tablet PO (19:38)
[2022-05-24] MEDS: traZODone 100 MG Tablet PO (19:38)
[2022-05-25] MEDS: Levothyroxine 50 MCG Tablet PO (05:30)
[2022-05-25] MEDS: Lisinopril 5 MG Tablet PO ×2 (05:30→17:45)
[2022-05-25 05:31] VITALS: BP 176/77; PULSE 69
[2022-05-25] MEDS: Senna/Docusate Sodium 1 Tablet PO (05:31)
[2022-05-25] MEDS: Pantoprazole Sodium 40 MG Tablet PO (05:31)
[2022-05-25] MEDS: Metoprolol Tartrate 25 MG Tablet PO (05:31)
[2022-05-25] MEDS: APIXABAN 5 MG TABLET PO ×2 (05:31→17:45)
[2022-05-25] MEDS: Paroxetine 20 MG Tablet PO (05:31)
[2022-05-25] MEDS: Nystatin Powder 15gm Bottle 1 APPLIC TOPICAL ×2 (05:33→19:58)
[2022-05-25] MEDS: Menthol/Lanolin/Calamine/Znox 113 GM Tube 1 APPLIC TOPICAL ×2 (05:35→17:43)
[2022-05-25 06:56] VITALS: BP 158/78; PULSE 70
--- NOTE | 2022-05-25 09:23 | CASEMGMT ---
Addendum entered by Dorothy Gonzalez 05/26/22 09:58: Received [facility]# [id number] Addendum entered by Dorothy Gonzalez 05/25/22 15:06: Email sent to S to inquire about Medicaid pending number. Original Note: Social Work Referrals made to SNFs via [facility] today. TORRI Olivera
[2022-05-25 14:21] VITALS: BP 109/57; PULSE 94; RESP 16; TEMP 36.2; O2SAT 65
[2022-05-25] MEDS: Acetaminophen 500 MG Tablet 1000 MG PO (17:46)
[2022-05-25 20:00] VITALS: PULSE 80; RESP 16; O2SAT 95
[2022-05-25] MEDS: Pravastatin 40 MG Tablet PO (20:04)
[2022-05-25] MEDS: traZODone 100 MG Tablet PO (20:04)
[2022-05-26] MEDS: Nystatin Powder 15gm Bottle 1 APPLIC TOPICAL ×2 (04:38→20:42)
[2022-05-26] MEDS: Menthol/Lanolin/Calamine/Znox 113 GM Tube 1 APPLIC TOPICAL ×2 (04:39→18:21)
[2022-05-26 04:45] VITALS: BP 133/80; PULSE 73
[2022-05-26] MEDS: Paroxetine 20 MG Tablet PO (04:45)
[2022-05-26] MEDS: Metoprolol Tartrate 25 MG Tablet PO (04:45)
[2022-05-26] MEDS: APIXABAN 5 MG TABLET PO ×2 (04:45→18:21)
[2022-05-26] MEDS: Lisinopril 5 MG Tablet PO ×2 (04:46→18:22)
[2022-05-26] MEDS: Pantoprazole Sodium 40 MG Tablet PO (04:46)
[2022-05-26] MEDS: Levothyroxine 50 MCG Tablet PO (04:46)
[2022-05-26] MEDS: Senna/Docusate Sodium 1 Tablet PO ×2 (04:46→18:20)
[2022-05-26 05:46] LABS: Absolute Lymphocyte Count 1.96 X10^3/uL (0.83-4.51); Absolute Neutrophil Count 4.3 X10^3/uL (2.0-7.7); Basophil# 0.06 X10^3/uL; Basophil% 0.8 % (0-1); Eosinophil# 0.36 X10^3/uL; Eosinophils% 4.9 % (0-5); Hematocrit 36.5 % (37-47); Hemoglobin 12.2 g/dL (12.0-15.0); Lymphocyte # 1.96 X10^3/ul (0.83-4.51); Lymphocyte % 26.5 % (19-41); Mean Corp Hgb Conc 33.4 g/dL (32-36); Mean Corpuscular Hgb 30.7 pg (27.0-32.0); Mean Corpuscular Volume 91.7 fL (81-99); Mean Platelet Vol. 9.9 fl (6.2-12.0); Monocyte# 0.69 X10^3/uL; Monocyte% 9.3 % (0-10); NRBC Flagged by Analyzer 0 % (0-5); Neutrophil % 58.2 % (47-70); Platelet Count 216 K/mm3 (150-450); RBC Distribution Width CV 13.1 % (11.6-14.6); RBC Distribution Width SD 43.7 fl (35.1-43.9); Red Blood Count 3.98 M/mm3 (4.2-5.4); White Blood Count 7.4 K/mm3 (4.4-11.0)
[2022-05-26 06:13] LABS: Anion Gap 7 (5-15); BUN 30 mg/dL (7-18); BUN/Creat Ratio 27.3 RATIO (10-20); Chloride 110 mmol/L (98-107); EST Glomerular Filtration Rate 51 mL/min (>60); Est Glom Filt Rate - Afr Amer 61 mL/min (>60); Estimated Creatinine Clearance 32.26 ml/min; Glucose 102 mg/dL (74-106); Potassium 4.4 mmol/L (3.5-5.1); Sodium Level 143 mmol/L (136-145)
[2022-05-26 09:35] VITALS: PULSE 68; RESP 18; O2SAT 95
--- NOTE | 2022-05-26 09:44 | CASEMGMT ---
Addendum entered by Dorothy Gonzalez 05/27/22 14:21: Spoke with [facility] - since pt is not COVID vaccinated, they do not have a room available for quarantine and unable to accept. [facility] are able to accept. SW contacted dtr to update on accepting facilities. Dtr states [facility] is [facility]. Discussed DC date. Dtr requesting DC 06/02 - IDT agreeable. Dtr requesting w/c transport. SW to schedule. Updated all facilities. Plan: DC 06/02 to [facility], intermediate, Medicaid pending Original Note: Social Work Followed up with [facility] and [facility] on referral. [facility] have been responding via [facility]. SW to continue to follow. Dorothy Gonzalez, TORRI FISHERW
[2022-05-26] MEDS: Acetaminophen 500 MG Tablet 1000 MG PO ×2 (11:08→20:41)
[2022-05-26 14:12] VITALS: BP 112/61; PULSE 63; RESP 16; TEMP 36.5; O2SAT 91
[2022-05-26] MEDS: Pravastatin 40 MG Tablet PO (20:41)
[2022-05-26] MEDS: traZODone 100 MG Tablet PO (20:41)
[2022-05-27] MEDS: Nystatin Powder 15gm Bottle 1 APPLIC TOPICAL ×2 (04:51→22:40)
[2022-05-27] MEDS: Menthol/Lanolin/Calamine/Znox 113 GM Tube 1 APPLIC TOPICAL ×2 (04:52→17:48)
[2022-05-27] MEDS: Lisinopril 5 MG Tablet PO ×2 (04:53→17:47)
[2022-05-27] MEDS: Paroxetine 20 MG Tablet PO (04:53)
[2022-05-27] MEDS: Pantoprazole Sodium 40 MG Tablet PO (04:53)
[2022-05-27 04:54] VITALS: BP 120/83; PULSE 80
[2022-05-27] MEDS: Metoprolol Tartrate 25 MG Tablet PO (04:54)
[2022-05-27] MEDS: Senna/Docusate Sodium 1 Tablet PO (04:54)
[2022-05-27] MEDS: Levothyroxine 50 MCG Tablet PO (04:54)
[2022-05-27] MEDS: APIXABAN 5 MG TABLET PO ×2 (04:54→17:47)
[2022-05-27 15:04] VITALS: BP 115/59; PULSE 78; RESP 16; TEMP 37.1; O2SAT 92
--- NOTE | 2022-05-27 20:09 | PCM.DC.SUM ---
Providers Date of Admission: 05/11/22 Primary Care Physician: Dr. Boy Miller MD Reason For Visit: SYNCOPE,FALL,FAILURE TO THRIVE,DEMENTIA Diagnosis Discharge Diagnosis (1) Debility: Status: Acute Code(s): R53.81 - Other malaise (2) Weakness: Status: Acute Code(s): R53.1 - Weakness (3) Dizziness: Status: Acute Code(s): R42 - Dizziness and giddiness (4) Failure to thrive: Status: Acute (5) Coronary artery disease: Status: Acute Code(s): I25.10 - Atherosclerotic heart disease of [place] coronary artery without angina pectoris (6) Abdominal aortic aneurysm: Status: Acute Code(s): I71.4 - Abdominal aortic aneurysm, without rupture (7) Deep vein thrombosis: Status: Acute Code(s): I82.409 - Acute embolism and thrombosis of unspecified deep veins of unspecified lower extremity (8) Pulmonary embolism: Status: Acute Code(s): I26.99 - Other pulmonary embolism without acute cor pulmonale (9) Hyperlipidemia: Status: Acute Code(s): E78.5 - Hyperlipidemia, unspecified (10) Restless leg syndrome: Status: Acute Code(s): G25.81 - Restless legs syndrome (11) Hypothyroidism: Status: Acute Code(s): E03.9 - Hypothyroidism, unspecified (12) Gastroesophageal reflux disease: Status: Acute Code(s): K21.9 - Gastro-esophageal reflux disease without esophagitis (13) Nausea: Status: Acute Code(s): R11.0 - Nausea (14) Anxiety: Status: Acute Code(s): F41.9 - Anxiety disorder, unspecified (15) Insomnia: Status: Acute Code(s): G47.00 - Insomnia, unspecified Plan 81 year old female with below past medical history hospitalized for weakness, admitted to TCU with debility, here for rehabilitation, strengthening, prior to extended care facility placement. Debility - PT/OT. Pain - Tylenol 1000mg q6h prn pain (1-10). Bowel - Senna/colace 1 tablet bid, Dulcolax 10mg daily prn. Adult immunization - Administer pneumonia vaccine, covid19 vaccine, flu vaccine as appropriate. DVT prophylaxis - Not necessary, on Eliquis. DVT/PE - Eliquis 5mg bid. Nutrition - Ensure Enlive 120ml 4x/day. Hypothyroidism - Levothyroxine 50mcg daily. Coronary Artery Disease - Metoprolol 25mg daily, Lisinopril 5mg bid, Eliquis 5mg bid. Nausea - Zofran odt 4mg q8h prn. Depression - Paroxetine 20mg daily, stable chronic fdc use, GDR not recommended. Hyperlipidemia - Pravastatin 40mg qhs. 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 Medications at Discharge Home Medications lisinopril 5 mg tablet 5 mg PO BID blood pressure 08/17/16 metoprolol tartrate 25 mg tablet 25 mg PO DAILY blood pressure 08/17/16 pravastatin 40 mg tablet 40 mg PO QHS cholesterol 08/17/16 levothyroxine 50 mcg tablet 50 mcg PO DAILY thyroid 07/12/18 apixaban 5 mg tablet (Eliquis) 5 mg PO BID DVT 10/18/18 paroxetine HCl 20 mg tablet 20 mg PO DAILY depression 05/10/22 trazodone 100 mg tablet 100 mg PO DAILY SLEEP 05/10/22 acetaminophen 500 mg tablet 1,000 mg PO Q6H PRN PRN Pain Score 1-10 #0 tabs 05/27/22 pantoprazole 40 mg tablet,delayed release 40 mg PO DAILY #0 tabs 05/27/22 Hospital Course Operations None Procedures None Summary of Care Provided Minutes Spent on Discharge: 35 Hospital Course: 81 year old female with below past medical history hospitalized for weakness, admitted to TCU with debility, here for rehabilitation, strengthening, prior to extended care facility placement. Discharge to [facility] 06/02/2022, intermediate, Medicaid pending. Physical Exam Const alert General Appearance: cooperative HEENT normocephalic Eyes PERRL and EOMs intact bilaterally Neck supple, no JVD and no carotid bruits Resp normal respiratory effort, normal air movement and clear to auscultation bilaterally Cardio regular rate and regular rhythm GI normal to inspection, nondistended, normoactive bowel sounds, non-tender and non-distended Extremity normal capillary refill General Extremity: Negative for edema Skin no rashes or lesions noted General Skin Exam: no breakdown Psych affect normal Appearance: appropriate Weight / BMI Weight Weight: 65.969 kg Body Mass Index (BMI) 26.3 ABG / Lab / Microbiology Data Result Diagrams: 05/26/22 05:35 05/26/22 05:35 Microbiology: Microbiology 05/21/22 08:00 Nasal Secretion SARS-CoV-2 Antigen (Rapid) - Final 05/18/22 05:45 Nasal Secretion SARS-CoV-2 Antigen (Rapid) - Final 05/14/22 07:00 Nasal Secretion SARS-CoV-2 Antigen (Rapid) - Final D/C Instructions Discharge Diet: No restrictions Discharge Activity: Return to Normal Activity, May Shower and Use Walker Weight Bearing Status: Weight bearing as tolerated Call your doctor if you observe: Fever of 101 or Higher, Inability to urinate, Inability to have a bowel movement, Shortness of breath, Dizziness, Fainting spells, Swelling in the ankles, Chest pain and Uncontrolled pain Additional Instructions: Discharge to [facility] 06/02/2022, intermediate, Medicaid pending. Meaningful Use Info Meaningful Use Diagnoses (Choose all that apply): None applicable Discharge Plan Admission Admit Date/Time: 05/11/22 14:23 Primary Reason for Your Visit: Debility. Attending Provider: Augustin Toledo Chi Primary Care Provider: Boy Miller Instructions Additional Instructions / Restrictions: Discharge to [facility] 06/02/2022, intermediate, Medicaid pending. Discharge Orders/Prescriptions Prescriptions: New acetaminophen 500 mg Tablet 1,000 mg PO Q6H PRN PRN (Reason: Pain Score 1-10) Qty: 0 0RF pantoprazole 40 mg Tablet,Delayed Release (Dr/Ec) 40 mg PO DAILY Qty: 0 0RF Continued pravastatin 40 MG tablet 40 mg PO QHS lisinopril 5 MG tablet 5 mg PO BID metoprolol tartrate 25 MG tablet 25 mg PO DAILY levothyroxine 50 MCG tablet 50 mcg PO DAILY Eliquis 5 MG tablet 5 mg PO BID Label Comments: TAKE ONE TABLET BY MOUTH TWICE DAILY trazodone 100 mg tablet 100 mg PO DAILY Label Comments: take 1 tablet by mouth nightly paroxetine HCl 20 mg tablet 20 mg PO DAILY Discontinued ondansetron 4 MG tablet,disintegrating 4 mg PO Q8H PRN PRN (Reason: Nausea) Referrals / Follow Up: Boy Miller MD [Primary Care Provider] - Disposition Disposition (needs filled in before D/C Order can be placed): NonSkilled NH/Intermed Care
--- NOTE | 2022-05-27 20:13 | TREXTCAR_ITS ---
Diet Diet Order/Speech Therapy: 05/12/22 08:06 Diet: Regular - No Added Salt Is pt able to select menu?: Yes Routine Orders/Code Status Code Status: Full Code Therapies Weight Bearing: Weight bearing as tolerated Problem/Diagnosis (1) Debility: Status: Acute Code(s): R53.81 - Other malaise (2) Weakness: Status: Acute Code(s): R53.1 - Weakness (3) Dizziness: Status: Acute Code(s): R42 - Dizziness and giddiness (4) Failure to thrive: Status: Acute (5) Coronary artery disease: Status: Acute Code(s): I25.10 - Atherosclerotic heart disease of [place] coronary artery without angina pectoris (6) Abdominal aortic aneurysm: Status: Acute Code(s): I71.4 - Abdominal aortic aneurysm, without rupture (7) Deep vein thrombosis: Status: Acute Code(s): I82.409 - Acute embolism and thrombosis of unspecified deep veins of unspecified lower extremity (8) Pulmonary embolism: Status: Acute Code(s): I26.99 - Other pulmonary embolism without acute cor pulmonale (9) Hyperlipidemia: Status: Acute Code(s): E78.5 - Hyperlipidemia, unspecified (10) Restless leg syndrome: Status: Acute Code(s): G25.81 - Restless legs syndrome (11) Hypothyroidism: Status: Acute Code(s): E03.9 - Hypothyroidism, unspecified (12) Gastroesophageal reflux disease: Status: Acute Code(s): K21.9 - Gastro-esophageal reflux disease without esophagitis (13) Nausea: Status: Acute Code(s): R11.0 - Nausea (14) Anxiety: Status: Acute Code(s): F41.9 - Anxiety disorder, unspecified (15) Insomnia: Status: Acute Code(s): G47.00 - Insomnia, unspecified Plan 81 year old female with below past medical history hospitalized for weakness, admitted to TCU with debility, here for rehabilitation, strengthening, prior to extended care facility placement. * Debility - PT/OT. * Pain - Tylenol 1000mg q6h prn pain (1-10). * Bowel - Senna/colace 1 tablet bid, Dulcolax 10mg daily prn. * Adult immunization - Administer pneumonia vaccine, covid19 vaccine, flu vacci ne as appropriate. * DVT prophylaxis - Not necessary, on Eliquis. * DVT/PE - Eliquis 5mg bid. * Nutrition - Ensure Enlive 120ml 4x/day. * Hypothyroidism - Levothyroxine 50mcg daily. * Coronary Artery Disease - Metoprolol 25mg daily, Lisinopril 5mg bid, Eliquis 5mg bid. * Nausea - Zofran odt 4mg q8h prn. 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 * Hyperlipidemia - Pravastatin 40mg qhs. * Insomnia - Trazodone 100mg qhs, stable chronic telephoner use, GDR not recommended. Allergies/Procedures Done in Hospital Allergies bupropion [From Wellbutrin] Allergy (Verified 05/10/22 12:35) Unknown carbidopa [From Sinemet] Allergy (Verified 05/10/22 12:35) Unknown celecoxib [From Celebrex] Allergy (Verified 05/10/22 12:35) Nausea codeine Allergy (Verified 05/10/22 12:35) Unknown levodopa [From Sinemet] Allergy (Verified 05/10/22 12:35) Unknown nitrofurantoin [From Macrobid] Allergy (Verified 05/10/22 12:35) Unknown phenytoin [From Dilantin] Allergy (Verified 05/10/22 12:35) Unknown prochlorperazine [From Compazine] Allergy (Verified 05/10/22 12:35) Unknown Sulfa (Sulfonamide Antibiotics) Allergy (Verified 05/10/22 12:35) Unknown sulfamethoxazole [From Bactrim] Allergy (Verified 05/10/22 12:35) Unknown trimethoprim [From Bactrim] Allergy (Verified 05/10/22 12:35) Unknown Procedures: None Type of Care/Length of Stay Estimated LOS: More Than 30 Days Type of Care Needed: Intermediate Rehab Potential: Fair Prognosis: Fair Additional Orders/Day of Discharge Day of Discharge: 06/02/22 Dietary and Speech Recommendations Dietitian Recommendations/Changes: Will continue liberalized regular no added salt diet given advanced age, dementia, and risk for malnutrition Speech Linguistic Eval Summary: Total BCAT? Score: 18 Impression: This BCAT? score indicates severe cognitive impairment or dementia (moderate-severe level). This BCAT? total score is suggestive of significant cognitive impairment. Persons with his score usually have difficulties in making new memories, as well as problems in other cognitive areas, especially with executive functions. As for impairment in memory, this should not be confused with the ability to recall events, places, and people from the distant past. When healthcare professionals think about memory capability, they are referring to the prospective ability to make a new memory. Many people with mild or moderate dementia are able to recall facts from the remote past, but have problems remembering recent events and learning new material. Individuals with this BCAT? score may also have problems with executive control functions (ECFs). ECFs can be thought of as our cognitive advisor to command in combat center. Executive abilities include complex cognitive skills such as judgment, planning, organization, and problem-solving. ECFs have a direct impact on the self-management of instrumental activities of daily living (IADL), such as shopping, laundry, transportation, medication, telephone, housekeeping, and finances. Persons with this BCAT? score often have problems in these areas, which could place them at safety risk if they are living in a situation without some level of direct support. Dementia is a syndrome, not a specific diagnosis. Dementia is caused by a specific disease or diseases. The most common cause of dementia is Alzheimer's disease. However, further evaluation should be done before determining a specific cause. The BCAT? test produces a score that can help stage dementia or significant cognitive dysfunction. It can also help identify individuals with mild versus moderate - severe dementia. BCAT? score of 25 to 33 are suggestive of mild dementia, and scores of 24 and below indicate moderate - severe dementia. You might consider administering the Brief Cognitive Impairment Scale (BCIS?) for scores in the moderate - severe range to get even more information about cognitive and behavioral functioning. The BCIS? is designed for patients with severe cognitive impairment and can be completed interactively on the BCAT? website (www.thebcat.com). Total Contextual Memory Factor (CMF) Score: 7 The Contextual Memory Factor (CMF) indicates current verbal memory skills. It is highly predictive of cognitive diagnosis (MCI versus dementia) and instrumental activities of daily living (IADL). It is also sensitive to those who have amnestic MCI (and who do not have dementia). The score range is 0-15. Scores below 12 typically indicate significant memory concerns that can impact everyday living. A score of 14, combined with a total BCAT? score in the MCI range, is often associated with [id number]. When this occurs, a review of executive functions and other cognitive domains may be helpful. Total Executive Control Functions Factor (ECFF) Score: 1 The Executive Control Functions Factor (ECFF) indicates current executive control functions abilities. There is a strong correlation between ECFF and predicting everyday activities of daily living, especially the higher order skills involving judgment, problem-solving, and reasoning. The score range is 0- 7. Scores below 5 generally indicate problems in executive control that could interfere with successful independent living. Some people have problems with executive functions but have relatively intact memory skills. When this occurs, the subtype of executive MCI may be indicated. Total Complex Attention Factor (CAF) Score: 5 Complex attention is an essential cognitive domain. It includes immediate, selective, and divided attention skills. It is highly associated with the ability to perform basic and complex activities of daily living. The Complex Attention Factor score (CAF) predicts ADL and IADL abilities and empirically measures the attentional skills necessary for independent functioning. Lower scores are associated with weaker performance, whereas higher scores suggest stronger abilities. Scores of 7-8 are within the normal/adequate range, and persons with these results may demonstrate higher levels of independence. Scores below 7 indicate likely attentional deficits, the need for more supervision or assistance, and higher risk for safety concerns and errors when completing basic or complex functional tasks. Please note that the CAF has a low performance threshold so most people should score in the adequate range. Total Cognitive Task Sports Physician (CTM) Score: 13 The Cognitive Task Sports Physician (CTM) integrates an individual?s performance in three primary cognitive domains: contextual memory, executive control functions, and complex attention. Together, these skills are among the most powerful predictors of augustin outcomes, including performance of basic and complex activities of daily living. The CTM score informs clinicians and families about impairments that can impact functional performance and highlight each individual?s risk for falls and adverse events at home, rehospitalizations and the need for residential support. The CTM score should be considered as part of a comprehensive assessment and be used to guide treatment interventions that address these underlying skill areas and promote a safe and sustainable transition to the next level of care. The CTM is an important clinical tool that informs the plan of care and should be used to identify persons at higher risk for cognitively related functional deficits. When interpreting the CTM score, it is helpful to recognize what scores indicate normal functioning and what scores indicate higher risk. CTM scores in the 26-30 range are within normal limits. These patients have relatively low risk. CTM scores in the 20-25 range indicate moderate risk. CTM scores below 20 indicate relatively high risk. Discharge Plan Admission Admit Date/Time: 05/11/22 14:23 Primary Reason for Your Visit: Debility. Attending Provider: Augustin Toledo Chi Primary Care Provider: Boy Miller Instructions Additional Instructions / Restrictions: Discharge to [facility] 06/02/2022, intermediate, Medicaid pending. Discharge Orders/Prescriptions Prescriptions: New acetaminophen 500 mg Tablet 1,000 mg PO Q6H PRN PRN (Reason: Pain Score 1-10) Qty: 0 0RF pantoprazole 40 mg Tablet,Delayed Release (Dr/Ec) 40 mg PO DAILY Qty: 0 0RF Continued pravastatin 40 MG tablet 40 mg PO QHS lisinopril 5 MG tablet 5 mg PO BID metoprolol tartrate 25 MG tablet 25 mg PO DAILY levothyroxine 50 MCG tablet 50 mcg PO DAILY Eliquis 5 MG tablet 5 mg PO BID Label Comments: TAKE ONE TABLET BY MOUTH TWICE DAILY trazodone 100 mg tablet 100 mg PO DAILY Label Comments: take 1 tablet by mouth nightly paroxetine HCl 20 mg tablet 20 mg PO DAILY Discontinued ondansetron 4 MG tablet,disintegrating 4 mg PO Q8H PRN PRN (Reason: Nausea) Referrals / Follow Up: Boy Miller MD [Primary Care Provider] - Disposition Disposition (needs filled in before D/C Order can be placed): NonSkilled NH/[facility]
[2022-05-27 22:40] VITALS: O2SAT 96
[2022-05-27] MEDS: traZODone 100 MG Tablet PO (22:40)
[2022-05-27] MEDS: Pravastatin 40 MG Tablet PO (22:40)
[2022-05-28] MEDS: Menthol/Lanolin/Calamine/Znox 113 GM Tube 1 APPLIC TOPICAL ×2 (06:27→18:24)
[2022-05-28] MEDS: APIXABAN 5 MG TABLET PO ×2 (06:28→18:24)
[2022-05-28 06:29] VITALS: BP 142/70; PULSE 79
[2022-05-28] MEDS: Metoprolol Tartrate 25 MG Tablet PO (06:29)
[2022-05-28] MEDS: Nystatin Powder 15gm Bottle 1 APPLIC TOPICAL ×2 (06:30→20:55)
[2022-05-28] MEDS: Paroxetine 20 MG Tablet PO (06:30)
[2022-05-28] MEDS: Senna/Docusate Sodium 1 Tablet PO (06:30)
[2022-05-28] MEDS: Pantoprazole Sodium 40 MG Tablet PO (06:31)
[2022-05-28] MEDS: Levothyroxine 50 MCG Tablet PO (06:31)
[2022-05-28] MEDS: Lisinopril 5 MG Tablet PO ×2 (06:31→18:27)
[2022-05-28 09:20] VITALS: PULSE 73; RESP 18; O2SAT 92
[2022-05-28] MEDS: Acetaminophen 500 MG Tablet 1000 MG PO (09:57)
[2022-05-28 10:19] VITALS: BP 105/52; PULSE 69; RESP 18; TEMP 37.1; O2SAT 94
[2022-05-28 18:28] VITALS: BP 146/78; PULSE 73
[2022-05-28] MEDS: Pravastatin 40 MG Tablet PO (20:54)
[2022-05-28] MEDS: traZODone 100 MG Tablet PO (20:54)
[2022-05-29] MEDS: Nystatin Powder 15gm Bottle 1 APPLIC TOPICAL ×2 (06:01→19:53)
[2022-05-29 06:02] VITALS: PULSE 91
[2022-05-29] MEDS: Pantoprazole Sodium 40 MG Tablet PO (06:02)
[2022-05-29] MEDS: Lisinopril 5 MG Tablet PO ×2 (06:02→16:40)
[2022-05-29] MEDS: Levothyroxine 50 MCG Tablet PO (06:02)
[2022-05-29] MEDS: Menthol/Lanolin/Calamine/Znox 113 GM Tube 1 APPLIC TOPICAL ×2 (06:02→16:40)
[2022-05-29] MEDS: Metoprolol Tartrate 25 MG Tablet PO (06:02)
[2022-05-29] MEDS: APIXABAN 5 MG TABLET PO ×2 (06:02→16:40)
[2022-05-29] MEDS: Paroxetine 20 MG Tablet PO (06:02)
[2022-05-29] MEDS: Acetaminophen 500 MG Tablet 1000 MG PO ×2 (09:17→19:45)
--- NOTE | 2022-05-29 13:27 | CASEMGMT ---
Addendum entered by Dorothy Gonzalez 05/29/22 13:51: Sent DC paperwork, PASRR and POA paperwork to [facility]. Original Note: Social Work PASRR completed. W/C transport scheduled through [facility]. Dorothy Gonzalez, TORRI FISHERW
[2022-05-29 15:08] VITALS: BP 103/54; PULSE 76; RESP 18; TEMP 35.8; O2SAT 92
[2022-05-29] MEDS: Senna/Docusate Sodium 1 Tablet PO (16:39)
[2022-05-29] MEDS: Pravastatin 40 MG Tablet PO (19:43)
[2022-05-29] MEDS: traZODone 100 MG Tablet PO (19:43)
[2022-05-29 20:00] VITALS: O2SAT 94
[2022-05-30] MEDS: Senna/Docusate Sodium 1 Tablet PO (04:56)
[2022-05-30] MEDS: APIXABAN 5 MG TABLET PO ×2 (04:56→16:53)
[2022-05-30] MEDS: Lisinopril 5 MG Tablet PO ×2 (04:56→16:54)
[2022-05-30 04:57] VITALS: BP 114/65; PULSE 87
[2022-05-30] MEDS: Pantoprazole Sodium 40 MG Tablet PO (04:57)
[2022-05-30] MEDS: Paroxetine 20 MG Tablet PO (04:57)
[2022-05-30] MEDS: Metoprolol Tartrate 25 MG Tablet PO (04:57)
[2022-05-30] MEDS: Levothyroxine 50 MCG Tablet PO (04:57)
[2022-05-30] MEDS: Menthol/Lanolin/Calamine/Znox 113 GM Tube 1 APPLIC TOPICAL ×2 (04:58→16:55)
[2022-05-30] MEDS: Nystatin Powder 15gm Bottle 1 APPLIC TOPICAL ×2 (05:01→20:12)
[2022-05-30 14:27] VITALS: BP 123/69; PULSE 79; RESP 16; TEMP 36.2; O2SAT 95
[2022-05-30] MEDS: Acetaminophen 500 MG Tablet 1000 MG PO (16:52)
[2022-05-30] MEDS: Pravastatin 40 MG Tablet PO (20:11)
[2022-05-30] MEDS: traZODone 100 MG Tablet PO (20:11)
[2022-05-31 05:51] VITALS: BP 124/60; PULSE 88
[2022-05-31] MEDS: Metoprolol Tartrate 25 MG Tablet PO (05:51)
[2022-05-31] MEDS: Acetaminophen 500 MG Tablet 1000 MG PO ×2 (05:51→18:37)
[2022-05-31] MEDS: Pantoprazole Sodium 40 MG Tablet PO (05:52)
[2022-05-31] MEDS: Levothyroxine 50 MCG Tablet PO (05:53)
[2022-05-31] MEDS: APIXABAN 5 MG TABLET PO ×2 (05:53→17:19)
[2022-05-31] MEDS: Paroxetine 20 MG Tablet PO (05:53)
[2022-05-31] MEDS: Lisinopril 5 MG Tablet PO ×2 (05:53→17:19)
[2022-05-31] MEDS: Menthol/Lanolin/Calamine/Znox 113 GM Tube 1 APPLIC TOPICAL ×2 (05:55→17:19)
[2022-05-31] MEDS: Nystatin Powder 15gm Bottle 1 APPLIC TOPICAL ×2 (05:55→19:42)
[2022-05-31 14:31] VITALS: BP 137/70; PULSE 80; RESP 16; TEMP 36.2; O2SAT 94
[2022-05-31] MEDS: Senna/Docusate Sodium 1 Tablet PO (17:19)
[2022-05-31] MEDS: Pravastatin 40 MG Tablet PO (19:43)
[2022-05-31] MEDS: traZODone 100 MG Tablet PO (19:43)
[2022-05-31 19:49] VITALS: O2SAT 96
[2022-06-01] MEDS: Levothyroxine 50 MCG Tablet PO (05:09)
[2022-06-01 05:10] VITALS: BP 112/64; PULSE 70
[2022-06-01] MEDS: Metoprolol Tartrate 25 MG Tablet PO (05:10)
[2022-06-01] MEDS: APIXABAN 5 MG TABLET PO ×2 (05:10→17:13)
[2022-06-01] MEDS: Nystatin Powder 15gm Bottle 1 APPLIC TOPICAL ×2 (05:10→20:50)
[2022-06-01] MEDS: Paroxetine 20 MG Tablet PO (05:10)
[2022-06-01] MEDS: Senna/Docusate Sodium 1 Tablet PO (05:10)
[2022-06-01] MEDS: Pantoprazole Sodium 40 MG Tablet PO (05:10)
[2022-06-01] MEDS: Menthol/Lanolin/Calamine/Znox 113 GM Tube 1 APPLIC TOPICAL ×2 (05:11→17:12)
[2022-06-01] MEDS: Lisinopril 5 MG Tablet PO ×2 (05:13→17:13)
[2022-06-01 08:55] VITALS: PULSE 102; RESP 18; O2SAT 94
--- NOTE | 2022-06-01 10:48 | NURSING ---
Resident educated on the COIVD19 Vaccine and does not want to receive it.
--- NOTE | 2022-06-01 12:11 | CASEMGMT ---
Social Work BIMS (08/27) and PHQ-9 (12/07) completed for MDS assessment. Dorothy Gonzalez MSW ORDER CLERK
[2022-06-01 14:05] VITALS: BP 105/79; PULSE 97; RESP 16; TEMP 36.2; O2SAT 95
[2022-06-01] MEDS: traZODone 100 MG Tablet PO (20:50)
[2022-06-01] MEDS: Pravastatin 40 MG Tablet PO (20:50)
[2022-06-02 05:40] LABS: Absolute Lymphocyte Count 2.34 X10^3/uL (0.83-4.51); Absolute Neutrophil Count 5.4 X10^3/uL (2.0-7.7); Basophil# 0.05 X10^3/uL; Basophil% 0.6 % (0-1); Eosinophil# 0.42 X10^3/uL; Eosinophils% 4.7 % (0-5); Hematocrit 39.5 % (37-47); Hemoglobin 12.4 g/dL (12.0-15.0); Lymphocyte # 2.34 X10^3/ul (0.83-4.51); Lymphocyte % 25.9 % (19-41); Mean Corp Hgb Conc 31.4 g/dL (32-36); Mean Corpuscular Hgb 29.4 pg (27.0-32.0); Mean Corpuscular Volume 93.6 fL (81-99); Mean Platelet Vol. 10.1 fl (6.2-12.0); Monocyte# 0.83 X10^3/uL; Monocyte% 9.2 % (0-10); NRBC Flagged by Analyzer 0 % (0-5); Neutrophil # 5.35 X10^3/uL (2.7-7.7); Neutrophil % 59.3 % (47-70); Platelet Count 242 K/mm3 (150-450); RBC Distribution Width CV 13.2 % (11.6-14.6); RBC Distribution Width SD 45.4 fl (35.1-43.9); Red Blood Count 4.22 M/mm3 (4.2-5.4)
[2022-06-02 05:42] VITALS: BP 144/86; PULSE 94
[2022-06-02] MEDS: Paroxetine 20 MG Tablet PO (05:42)
[2022-06-02] MEDS: Levothyroxine 50 MCG Tablet PO (05:42)
[2022-06-02] MEDS: APIXABAN 5 MG TABLET PO (05:42)
[2022-06-02] MEDS: Lisinopril 5 MG Tablet PO (05:42)
[2022-06-02] MEDS: Senna/Docusate Sodium 1 Tablet PO (05:42)
[2022-06-02] MEDS: Metoprolol Tartrate 25 MG Tablet PO (05:42)
[2022-06-02] MEDS: Pantoprazole Sodium 40 MG Tablet PO (05:42)
[2022-06-02] MEDS: Menthol/Lanolin/Calamine/Znox 113 GM Tube 1 APPLIC TOPICAL (05:44)
[2022-06-02] MEDS: Nystatin Powder 15gm Bottle 1 APPLIC TOPICAL (05:45)
[2022-06-02 05:57] LABS: Anion Gap 6 (5-15); BUN 27 mg/dL (7-18); BUN/Creat Ratio 26.7 RATIO (10-20); Calcium,Total 9.1 mg/dL (8.5-10.1); Chloride 108 mmol/L (98-107); Creatinine, Serum 1.01 mg/dL (0.55-1.02); EST Glomerular Filtration Rate 56 mL/min (>60); Est Glom Filt Rate - Afr Amer 68 mL/min (>60); Estimated Creatinine Clearance 35.14 ml/min; Glucose 90 mg/dL (74-106); Potassium 4.2 mmol/L (3.5-5.1); Sodium Level 143 mmol/L (136-145)
[2022-06-02 08:11] VITALS: BP 141/79; PULSE 69; RESP 18; TEMP 36.4; O2SAT 94
[2022-06-02 08:14] VITALS: PULSE 69
--- NOTE | 2022-06-02 09:32 | NURSING ---
REPORT CALLED TO NURSE TRAN AT [facility] AT THIS TIME.
== END 2022-06-02 12:40 | disposition intermediate care facility (04) | DRG 884 ==
PROVIDERS: Admitting Provider Family Medicine Geriatric Medicine; PCP Family Medicine; Visit Provider Family Medicine Geriatric Medicine
DX: F03.90 Unspecified dementia, unspecified severity, without behavioral disturbance, psychotic disturbance, mood disturbance, and anxiety (principal); R62.7 Adult failure to thrive; I71.4 Abdominal aortic aneurysm, without rupture; E03.9 Hypothyroidism, unspecified; I10 Essential (primary) hypertension; F41.9 Anxiety disorder, unspecified; E78.00 Pure hypercholesterolemia, unspecified; G25.81 Restless legs syndrome; I25.10 Atherosclerotic heart disease of native coronary artery without angina pectoris; K21.9 Gastro-esophageal reflux disease without esophagitis; I25.2 Old myocardial infarction; R53.1 Weakness; Z86.711 Personal history of pulmonary embolism; Z86.718 Personal history of other venous thrombosis and embolism; Z87.891 Personal history of nicotine dependence; Z79.01 Long term (current) use of anticoagulants; Z79.899 Other long term (current) drug therapy; Z79.890 Hormone replacement therapy; F32.A Depression, unspecified; N32.81 Overactive bladder
CPT/HCPCS: 36415; 80048; 85025; 87426; 87811; 92507; 92523; 97110; 97116; 97162; 97166; 97530; 97535